=== PATIENT | female | born 1955 | race Caucasian/White ===

== ENCOUNTER 2018-10-27 11:43 | Emergency (ER) | payer OTHER ==
--- OUTSIDE RECORDS SUMMARY | 2018-10-27 11:45 | XMS REPORT | Clinical Summary ---
:1955 Author Organization [facility] Address [address] [place] [address] Care Team Providers Name Role Phone Guillaume Perez Primary Care Provider Unavailable Allergies No Known Allergies Medications No known medications Active Problems Not on file Social History Tobacco Use Types Packs/Day Years Used Date Never Smoker Sex Assigned at Date Recorded Not on file Job Start Date Occupation Industry Not on file Not on file Not on file Travel History Travel Start Travel End No recent travel history available. Last Filed Vital Signs Not on file Plan of Treatment Not on file Results Not on fileafter 10/26/2017 Insurance Payer Benefit Plan / Group Subscriber ID Type Phone Address [employer] - MEDICARE MGD [employer] GOLD CHOICE xxxxxxxxx Maps Contracted CARE PFFS
[2018-10-27] MEDS ORDERED: MECLIZINE HCL 12.5 MG TAB ONE (12:52)
[2018-10-27] MEDS ORDERED: ONDANSETRON 4 MG/2 ML VIAL ONE (12:53)
[2018-10-27 13:14] LABS: Absolute Lymphocytes (CBC) 3.4 K/uL (0.7-4.9); Basophils % 0.3 % (0-1.3); Hematocrit 45.4 % (36.0-45.0); Lymphocytes % 38.9 % (15.3-44.8); RBC Red Blood Cell Count 5.26 M/uL (3.86-4.86)
[2018-10-27 13:29] LABS: Protime INR 1.01
[2018-10-27 13:35] LABS: ALT/SGPT 25 U/L (12-78); AST/SGOT 32 U/L (15-37); Albumin 4.2 g/dL (3.4-5.0); Alkaline Phosphatase 71 U/L (45-117); BUN Blood Urea Nitrogen 17 mg/dL (7-18); Bicarbonate 27 mmol/L (21-32); Bilirubin Direct < 0.1 mg/dL (0-0.2); Bilirubin Total 0.6 mg/dL (0.2-1.0); Glucose Level 99 mg/dL (74-106); Magnesium 2.1 mg/dL (1.8-2.4); NT PRO-BNP 124 pg/mL (<125); Potassium 4.5 mmol/L (3.5-5.1); Protein, Total 8.2 g/dL (6.4-8.2); Sodium Level 139 mmol/L (136-145); Troponin (Emerg Dept Use Only) < 0.02 ng/mL (0.0-0.045)
--- NOTE | 2018-10-27 13:56 | RAD REPORT ---
EXAM DESCRIPTION: RAD - Chest Single View - 10/27/2018 1:36 pm CLINICAL HISTORY: dizziness Chest pain. COMPARISON: No comparisons FINDINGS: Portable technique limits examination quality. The lungs are grossly clear. The heart is normal in size. No displaced fractures. IMPRESSION: No acute intrathoracic process suspected.
--- NOTE | 2018-10-27 13:58 | RAD REPORT ---
EXAM DESCRIPTION: CT - Head Brain Wo Cont - 10/27/2018 1:31 pm CLINICAL HISTORY: DIZZINESS Headache, drowsiness, previous brain removal. COMPARISON: No comparisons TECHNIQUE: All CT scans are performed using dose optimization technique as appropriate and may inclu de automated exposure control or mA/KV adjustment according to patient size. FINDINGS: No intracranial hemorrhage, hydrocephalus or extra-axial fluid collection.Moderate periven tricular and deep white matter chronic microvascular ischemic changes.. Gliosis is seen in the right occipital region compatible with previous surgical intervention. The paranasal sinuses and mastoids are clear. Previous right craniotomy changes are present. IMPRESSION: No acute intracranial abnormality.
[2018-10-27 14:06] LABS: Urine Blood NEGATIVE (NEG); Urine Glucose NEGATIVE (NEG); Urine Protein NEGATIVE (NEG); Urine Specific Gravity 1.025 (1.005-1.030); Urine pH 5.5 (5.0-7.0)
[2018-10-27] MEDS ORDERED: ASPIRIN 81 MG CHEWABLE TABLET ONE (14:14)
--- NOTE | 2018-10-27 14:26 | ER ---
Nurse's Notes [facility] Name: Dai Trujillo Age: 63 yrs Sex: Female : 1955 Arrival Date: 10/27/2018 Time: 11:44 Bed 26 Private MD: Leigh Ann Parsons Diagnosis: Dizziness and giddiness;Unsteadiness on feet Presentation: 10/27 12:16 Presenting complaint: Patient states: dizziness started this morning around 0330, sv doesn't remember what time she went to bed. c/o SOB. Transition of care: patient was not received from another setting of care. Onset of symptoms was October 27, 2018. Care prior to arrival: None. 12:16 Method Of Arrival: Wheelchair sv 12:16 Acuity: STEFAN 3 sv 13:18 Risk Assessment: Do you want to hurt yourself or someone else? Patient reports no ca1 desire to harm self or others. Initial Sepsis Screen: Does the patient meet any 2 criteria? No. Patient's initial sepsis screen is negative. Does the patient have a suspected source of infection? No. Patient's initial sepsis screen is negative. Triage Assessment: 12:16 General: Appears in no apparent distress. comfortable, Behavior is cooperative. Neuro: sv Level of Consciousness is awake, alert, obeys commands, confused, Reports dizziness. Respiratory: Reports shortness of breath Respiratory effort is even, unlabored, Respiratory pattern is regular, symmetrical. Historical: - Allergies: 12:19 No Known Allergies; sv - PMHx: 12:19 Brain cancer; Alzheimers; Dementia; sv - Immunization history:: Adult Immunizations not up to date. - Social history:: Smoking status: Patient/guardian denies using tobacco. - Ebola Screening: : Patient negative for fever greater than or equal to 101.5 degrees Fahrenheit, and additional compatible Ebola Virus Disease symptoms Patient denies exposure to infectious person Patient denies travel to an Ebola-affected area in the 21 days before illness onset No symptoms or risks identified at this time. Screenin:05 Abuse screen: Denies threats or abuse. Denies injuries from another. Nutritional ca1 screening: No deficits noted. Tuberculosis screening: No symptoms or risk factors identified. Fall Risk Fall in past 12 months (25 points). Secondary diagnosis (15 points) dementia, IV access (20 points). Ambulatory Aid- Crutches/Cane/Walker (15 pts). Gait- Weak (10 pts.). Mental Status- Overestimates/Forgets Limitations (15 pts.). Total Taylor Fall Scale indicates High Risk Score (45 or more points). Fall prevention measures have been instituted. Side Rails Up X 2 Frequent Obs/Assessments Occuring Family Present and informed to notify staff if the need to leave the bedside As available patient and family educated on Fall Prevention Program and Strategies. Assessment: 13:05 General: Appears in no apparent distress. comfortable, Behavior is calm, cooperative, ca1 appropriate for age. Pain: Denies pain. Neuro: Level of Consciousness is awake, alert, obeys commands, Oriented to person, place, time, situation, Appropriate for age Sealer Operator are equal bilaterally Moves all extremities. Speech is normal. Neuro: Reports dizziness, for about 24 hours now. Cardiovascular: Heart tones S1 S2 present Capillary refill < 3 seconds Patient's skin is warm and dry. Respiratory: Airway is patent Respiratory effort is even, unlabored, Breath sounds are clear bilaterally. GI: Abdomen is flat, non-distended, Bowel sounds present X 4 quads. Abd is soft and non tender X 4 quads. : No deficits noted. No signs and/or symptoms were reported regarding the genitourinary system. EENT: No deficits noted. No signs and/or symptoms were reported regarding the EENT system. Derm: Skin is intact, is healthy with good turgor, Skin is pink, warm \T\ dry. Musculoskeletal: Circulation, motion, and sensation intact. Capillary refill < 3 seconds, Range of motion: intact in all extremities. 14:02 Reassessment: Patient appears in no apparent distress at this time. Patient and/or ca1 family updated on plan of care and expected duration. Pain level reassessed. Patient is alert, oriented x 3, equal unlabored respirations, skin warm/dry/pink. Attempted to ambulate pt. Walked 6 steps then c/o of headache and dizziness. Put back on bed. Notified provider. 15:30 Reassessment: Patient appears in no apparent distress at this time. Patient and/or ca1 family updated on plan of care and expected duration. Pain level reassessed. Patient is alert, oriented x 3, equal unlabored respirations, skin warm/dry/pink. 16:52 Reassessment: Patient appears in no apparent distress at this time. Patient and/or ca1 family updated on plan of care and expected duration. Pain level reassessed. Patient is alert, oriented x 3, equal unlabored respirations, skin warm/dry/pink. Vital Signs: 12:19 BP 136 / 80; Pulse 62; Resp 16; Temp 97.6; Pulse Ox 96% ; sv 13:05 BP 155 / 81; Pulse 63; Resp 18 S; Pulse Ox 97% on R/A; ca1 14:02 BP 140 / 71; Pulse 66; Resp 17 S; Pulse Ox 97% on R/A; ca1 15:30 BP 144 / 73; Pulse 59; Resp 14; Pulse Ox 97% on R/A; ca1 16:30 BP 125 / 74; Pulse 58; Resp 17 S; Pulse Ox 96% on R/A; ca1 NIH Stroke Scale Scores: 13:00 NIHSS Score: 0 cp ED Course: 11:44 Patient arrived in ED. am2 11:44 Leigh Ann Parsons MD is Private Physician. am2 12:19 Triage completed. sv 12:19 Arm band placed on. sv 12:22 Alicia Sorensen, IAN is Primary Nurse. ca1 12:23 Guerrero Min PA is PHCP. cp 12:23 Devendra Melton MD is Attending Physician. cp 12:27 Bed in low position. Call light in reach. Side rails up X 1. Side rails up X2. Adult w/ jp3 patient. Warm blanket given. Pillow given. Verbal reassurance given. Pulse ox on. NIBP on. 12:28 Patient maintains SpO2 saturation greater than 95% on room air. jp3 13:05 No provider procedures requiring assistance completed. Initial lab(s) drawn, by az, ca1 sent to lab. Inserted saline lock: 22 gauge in right antecubital area, using aseptic technique. Blood collected. 13:49 EKG done, by ED staff, reviewed by Guerrero KOWALSKI. jp3 14:59 initiated a transfer with Lena from the [facility] transfer granite. eb 15:53 \T\[id number] Roberto from [facility] with Guerrero Kowalski for patient transfer eb consulation/ \T\[id number] administrative approval given by Lena Jimenez RN/ patient has been accepted to [facility] ED / Dr. Roberto has accepted the patient in transfer/ report to be called to [phone]. 16:54 Patient transferred, IV remains in place. ca1 Administered Medications: 13:00 Drug: Meclizine 25 mg Route: PO; ca1 15:00 Follow up: Response: No adverse reaction; No adverse reaction. Dizziness decreased ca1 13:05 Drug: Zofran 4 mg Route: IVP; Site: right antecubital; ca1 13:38 Follow up: Response: No adverse reaction; Nausea is decreased ca1 14:14 Drug: Aspirin Chewable Tablet 324 mg Route: PO; ca1 15:00 Follow up: Response: No adverse reaction ca1 Outcome: 14:25 ER care complete, transfer ordered by MD. deng 17:19 Transferred to [facility]. hb 17:19 Condition: stable 17:19 Instructed on the need for transfer, Demonstrated understanding of instructions. 17:22 Patient left the ED. aa5 NIH Stroke Scale - NIH Stroke Score Date: 10/27/2018 Time: 13:00 Total Score = 0 1a. Level of Consciousness (LOC) - 0(Alert) 1b. Level of Consciousness (LOC) (Year \T\ Age) - 0(Both) 1c. LOC Commands (Open \T\ Closes Eyes/Crop Or Grain Farmworker) - 0(Both) 2. Best Gaze (Lateral Gaze Paresis) - 0(Normal) 3. Visual Field Loss - 0(No visual loss) 4. Facial Palsy - 0(Normal) 5a. Left Arm: Motor (10-second hold) - 0(No drift) 5b. Right Arm: Motor (10-second hold) - 0(No drift) 6a. Left Leg: Motor (5-second hold - always test supine) - 0(No drift) 6b. Right Leg: Motor (5-second hold - always test supine) - 0(No drift) 7. Limb Ataxia (finger/nose \T\ heel/garcia - test with eyes open) - 0(Absent) 8. Sensory Loss (pinprick arms/legs/face) - 0(Normal) 9. Best Language: Aphasia (description/naming/reading) - 0(No aphasia) 10. Dysarthria (speech clarity - read or repeat words) - 0(Normal) 11. Extinction and Inattention (visual/tactile/auditory/spatial/personal) - 0(No abnormality) Initials: cp Signatures: Nikky Velazquez RN RN Yulissa Jacobo RN RN aa5 Guerrero Min PA PA cp Baxter, Heather, RN RN Renée Moran am2 Lorraine Garrison Jacob jp3 Alicia Sorensen RN RN ca1 Corrections: (The following items were deleted from the chart) 17:37 17:36 Response: No adverse reaction; No adverse reaction. Dizziness decreased ca1 ca1
--- NOTE | 2018-10-27 14:26 | EDPHYS ---
Physician Documentation [facility] Name: Dai Trujillo Age: 63 yrs Sex: Female : 1955 Arrival Date: 10/27/2018 Time: 11:44 Bed 26 Private MD: Leigh Ann Parsons ED Physician Devendra Melton HPI: 10/27 12:44 This 63 yrs old Female presents to ER via Wheelchair with complaints of cp Dizziness. 12:44 The patient presents with dizziness, lightheadedness, sense of spinning. Onset: The cp symptoms/episode began/occurred this morning, at 03:30. Context: occurred at home, just prior to the episode the patient experienced no apparent symptoms. 12:45 Patient's baseline: Neuro: alert and fully oriented, Motor: no deficits, Speech: slow, cp patient reports she does occasionally use walker to ambulate. 12:45 Associated signs and symptoms: Pertinent positives: headache, Pertinent negatives: cp confusion, focal weakness, vomiting. 12:50 Patient reports history of Glioblastoma with surgery in the past. cp Historical: - Allergies: 12:19 No Known Allergies; sv - PMHx: 12:19 Brain cancer; Alzheimers; Dementia; sv - Immunization history:: Adult Immunizations not up to date. - Social history:: Smoking status: Patient/guardian denies using tobacco. - Ebola Screening: : Patient negative for fever greater than or equal to 101.5 degrees Fahrenheit, and additional compatible Ebola Virus Disease symptoms Patient denies exposure to infectious person Patient denies travel to an Ebola-affected area in the 21 days before illness onset No symptoms or risks identified at this time. ROS: 12:50 Constitutional: Negative for body aches, chills, fever, poor PO intake. cp 12:50 Eyes: Negative for injury, pain, redness, and discharge. cp 12:50 ENT: Negative for drainage from ear(s), ear pain, sinus congestion, sinus pain, sore throat, difficulty swallowing, difficulty handling secretions. 12:50 Cardiovascular: Negative for chest pain, edema, palpitations. 12:50 Respiratory: Negative for cough, shortness of breath, wheezing. 12:50 Abdomen/GI: Negative for abdominal pain, nausea, vomiting, and diarrhea, black/tarry stool, rectal bleeding. 12:50 Back: Negative for pain at rest, pain with movement. 12:50 : Negative for urinary symptoms. 12:50 Skin: Negative for cellulitis, rash. 12:50 Neuro: Positive for dizziness, headache, unsteady gait, Negative for altered mental status, syncope, weakness. 12:50 All other systems are negative. Exam: 12:55 Constitutional: The patient appears in no acute distress, alert, awake, cp non-diaphoretic, non-toxic, well developed, well nourished. 12:55 Head/Face: Normocephalic, atraumatic. cp 12:55 Eyes: Periorbital structures: appear normal, Pupils: equal, round, and reactive to light and accomodation, Extraocular movements: intact throughout, Conjunctiva: normal, no exudate, no injection, Sclera: no appreciated abnormality, Lids and lashes: appear normal, bilaterally. 12:55 ENT: External ear(s): are unremarkable, Ear canal(s): are normal, clear, TM's: bulging, is not appreciated, bilaterally, dullness, bilaterally, erythema, is not appreciated, bilaterally, Nose: is normal, Mouth: is normal, Posterior pharynx: is normal, airway is patent, no erythema, no exudate. 12:55 Neck: ROM/movement: is normal, is supple, without pain, no range of motions limitations, no meningismus, no nuchal rigidity. 12:55 Chest/axilla: Inspection: normal, Palpation: is normal, no crepitus, no tenderness. 12:55 Cardiovascular: Rate: normal, Rhythm: regular, Pulses: Pulses are 2+ in right radial cp artery and left radial artery. Edema: is not appreciated, JVD: is not appreciated. 12:55 Respiratory: the patient does not display signs of respiratory distress, Respirations: cp normal, no use of accessory muscles, no retractions, no splinting, no tachypnea, labored breathing, is not present, Breath sounds: are clear throughout, no decreased breath sounds, no stridor, no wheezing. 12:55 Abdomen/GI: Inspection: abdomen appears normal, Bowel sounds: active, all quadrants, Palpation: abdomen is soft and non-tender, in all quadrants. 12:55 Back: pain, is absent, ROM is normal. 12:55 Skin: no rash present. 12:55 Neuro: Orientation: to person, place \T\ time. Mentation: Cerebellar function: Romberg testing is negative, normal finger to nose testing, heel to garcia testing is normal, Motor: moves all fours, strength is normal, Sensation: no obvious gross deficits. 13:50 ECG was reviewed by the Attending Physician. cp Vital Signs: 12:19 BP 136 / 80; Pulse 62; Resp 16; Temp 97.6; Pulse Ox 96% ; sv 13:05 BP 155 / 81; Pulse 63; Resp 18 S; Pulse Ox 97% on R/A; ca1 14:02 BP 140 / 71; Pulse 66; Resp 17 S; Pulse Ox 97% on R/A; ca1 15:30 BP 144 / 73; Pulse 59; Resp 14; Pulse Ox 97% on R/A; ca1 16:30 BP 125 / 74; Pulse 58; Resp 17 S; Pulse Ox 96% on R/A; ca1 NIH Stroke Scale Scores: 13:00 NIHSS Score: 0 cp MDM: 12:31 Patient medically screened. cp 14:10 Data reviewed: vital signs, nurses notes, lab test result(s), EKG, radiologic studies, cp CT scan, I have discussed the patient's presentation/case with the attending Emergency Department Physician;. 14:10 Test interpretation: by ED physician or midlevel provider: ECG, plain radiologic cp studies. Response to treatment: the patient's symptoms have mildly improved after treatment. ED course: VSS. Chest xray negative for infiltrates. Patient is not a candidate for tpa as onset of symptoms were at 0330. Will transfer patient for MRI and neurology consult. 14:20 Physician consultation: DR Roberto, ER physician \T\[facility]', will accept patient as cp transfer to ED for continued evaluation and neurology consult. 10/27 12:44 Order name: Basic Metabolic Panel cp 10/27 12:44 Order name: CBC with Diff cp 10/27 12:44 Order name: LFT's cp 10/27 12:44 Order name: Magnesium cp 10/27 12:44 Order name: NT PRO-BNP cp 10/27 12:44 Order name: PT-INR cp 10/27 12:44 Order name: Troponin (emerg Dept Use Only) 10/27 13:14 Order name: CBC with Automated Diff; Complete Time: 13:57 EDMS 10/27 13:57 Interpretation: Normal except: RBC 5.26; HGB 15.6; HCT 45.4. 10/27 13:31 Order name: Protime (+INR); Complete Time: 13:57 EDMS 10/27 13:37 Order name: Basic Metabolic Panel; Complete Time: 13:57 EDMS 10/27 13:37 Order name: Liver (Hepatic) Function; Complete Time: 13:57 EDMS 10/27 13:37 Order name: Troponin (Emerg Dept Use Only); Complete Time: 13:57 EDMS 10/27 13:37 Order name: NT PRO-BNP; Complete Time: 13:57 EDMS 10/27 13:37 Order name: Magnesium; Complete Time: 13:57 EDMS 10/27 12:44 Order name: XRAY Chest (1 view) 10/27 12:44 Order name: EKG; Complete Time: 12:46 10/27 12:44 Order name: Cardiac monitoring; Complete Time: 13:09 10/27 12:44 Order name: EKG - Nurse/Tech; Complete Time: 13:38 10/27 12:44 Order name: IV Saline Lock; Complete Time: 13:09 10/27 12:44 Order name: Labs collected and sent; Complete Time: 13:09 10/27 12:44 Order name: O2 Per Protocol; Complete Time: 13:09 10/27 12:44 Order name: O2 Sat Monitoring; Complete Time: 13:09 10/27 12:44 Order name: CT Head Brain wo Cont 10/27 13:40 Order name: Urine Dipstick--Ancillary (enter results) 10/27 13:58 Order name: RAD; Complete Time: 13:58 EDMS 10/27 14:00 Order name: CT; Complete Time: 14:05 EDMS 10/27 14:05 Interpretation: Report reviewed. 10/27 14:07 Order name: Urine Dipstick-Ancillary EDMS EC:50 Rate is 57 beats/min. Rhythm is regular. IL interval is normal. QRS interval is normal. cp QT interval is normal. T waves are Inverted in leads aVL, V3, V4. Interpreted by me. Reviewed by me. Administered Medications: 13:00 Drug: Meclizine 25 mg Route: PO; ca1 15:00 Follow up: Response: No adverse reaction; No adverse reaction. Dizziness decreased ca1 13:05 Drug: Zofran 4 mg Route: IVP; Site: right antecubital; ca1 13:38 Follow up: Response: No adverse reaction; Nausea is decreased ca1 14:14 Drug: Aspirin Chewable Tablet 324 mg Route: PO; ca1 15:00 Follow up: Response: No adverse reaction ca1 Disposition: 10/28 08:58 Co-signature as Attending Physician, Devendra Melton MD I agree with the assessment and kdr plan of care. Disposition: 10/27/18 14:25 Transfer ordered to [facility]. Diagnosis are Dizziness and giddiness, Unsteadiness on feet. - Reason for transfer: Higher level of care. - Accepting physician is DR Roberto. - Condition is Stable. - Problem is new. - Symptoms are unchanged. NIH Stroke Scale - NIH Stroke Score Date: 10/27/2018 Time: 13:00 Total Score = 0 1a. Level of Consciousness (LOC) - 0(Alert) 1b. Level of Consciousness (LOC) (Year \T\ Age) - 0(Both) 1c. LOC Commands (Open \T\ Closes Eyes/Tractor Engine Mechanic) - 0(Both) 2. Best Gaze (Lateral Gaze Paresis) - 0(Normal) 3. Visual Field Loss - 0(No visual loss) 4. Facial Palsy - 0(Normal) 5a. Left Arm: Motor (10-second hold) - 0(No drift) 5b. Right Arm: Motor (10-second hold) - 0(No drift) 6a. Left Leg: Motor (5-second hold - always test supine) - 0(No drift) 6b. Right Leg: Motor (5-second hold - always test supine) - 0(No drift) 7. Limb Ataxia (finger/nose \T\ heel/garcia - test with eyes open) - 0(Absent) 8. Sensory Loss (pinprick arms/legs/face) - 0(Normal) 9. Best Language: Aphasia (description/naming/reading) - 0(No aphasia) 10. Dysarthria (speech clarity - read or repeat words) - 0(Normal) 11. Extinction and Inattention (visual/tactile/auditory/spatial/personal) - 0(No abnormality) Initials: cp Signatures: Dispatcher MedHo Nikky Kerns RN RN sv Rittger, Kevin MD MD kdr Rivera, Yulissa, RN RN aa5 Guerrero Min, PA PA cp Edu, Alicia RN RN ca1 Corrections: (The following items were deleted from the chart) 10/27 16:25 14:25 10/27/2018 14:25 Transfer ordered to [facility]. cp Diagnosis is Dizziness and giddiness; Unsteadiness on feet. Reason for transfer: Higher level of care. Accepting physician is Doctor. Condition is Stable. Problem is new. Symptoms are unchanged. cp 17:22 16:25 10/27/2018 14:25 Transfer ordered to [facility]. aa5 Diagnosis is Dizziness and giddiness; Unsteadiness on feet. Reason for transfer: Higher level of care. Accepting physician is DR Roberto. Condition is Stable. Problem is new. Symptoms are unchanged. cp
[2018-10-27 18:13] VITALS: TEMP 97.6
[2018-10-27 18:16] VITALS: BP 125/74; O2SAT 96
--- NOTE | 2018-10-28 11:35 | EKG ---
Test Date: 2018-10-27 Test Time: 13:45:29 Body Technician: ILYA MEASUREMENT RESULTS: Intervals: Rate: 57 ID: [id number] QRSD: 86 QT: 456 QTc: 443 [place]: P: 60 ID: [id number] QRS: 38 T: 77 INTERPRETIVE STATEMENTS: Sinus bradycardia Nonspecific T wave abnormality Abnormal ECG No previous ECG available for comparison Electronically Signed On 10-28-18 11:31:22 CDT by Krishna Villela
== END 2018-10-27 17:22 | disposition short-term general hospital (02) ==
LOC: ER 11:43
DX: R42 Dizziness and giddiness (principal); R26.81 Unsteadiness on feet; G30.9 Alzheimer's disease, unspecified; F02.80 Dementia in other diseases classified elsewhere, unspecified severity, without behavioral disturbance, psychotic disturbance, mood disturbance, and anxiety; Z85.841 Personal history of malignant neoplasm of brain
CPT/HCPCS: 93005; 85025; 80048; 36415; 83735; 85610; 80076; 81003; 84484; 83880; 70450; 71045; 96374; 99285; J2405

== ENCOUNTER 2020-07-08 16:49 | Emergency (ER) | payer OTHER ==
--- OUTSIDE RECORDS SUMMARY | 2020-07-08 16:51 | XMS REPORT | Continuity of Care Document ---
:1955 Author Organization [facility] t Address [address] [place] [address] Care Team Providers Name Role Phone Luis Antonio Perez Primary Care Physician Bon Grayson Attending Clinician Emre REVELES, K.H. 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 00:00: Medi carlotta lobe lobe 00 Center Dementia Dementia Disease [facility] DYSPHAGIA; Diagnosis Active 2010-022011-01-19 Memoria DIARRHEA; 03-16 09:32:00 l NAUSEA; 00:00: Reza VOMITING; DYSPHAGIA; 00 RECTAL DIARRHEA; BLEEDING NAUSEA; VOMITING; RECTAL BLEEDING Active 01/13/2011 [facility] Malignant Problem Resolve 2020-06-18 M emoria neoplasm d 01:54:44 l of brain Reza (disorder) Malignant neoplasm of brain (disorder) Resolved Problem 06/18/2020 [facility] Dyskinesia Problem Active 2020-06-18 M emoria (finding) 01:54:44 l [place] Dyskinesia (finding) Active Problem 06/18/2020 [facility] 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 Russell n (disorder) Glioblasto ma multiforme (disorder) Active Problem 06/18/2020 [facility] History of Problem Active 2020-06-18 M emoria craniotomy 01:54:44 l (situation History Her mcclain ) of craniotomy (situation ) Active Problem 06/18/2020 [facility] Hyperlipid Problem Active 2020-06-18 M emoria emia 01:54:44 l (disorder) Russell n Hyperlipid emia (disorder) Active Problem 06/18/2020 [facility] Hypertensi Problem Active 2020-06-18 emoria ve 01:54:44 l disorder, [place] systemic Hypertensi arterial ve (disorder) disorder, systemic arterial (disorder) Active Problem 06/18/2020 [facility] Allergies, Adverse Reactions, Alerts Allergy Allergy Status Severity Reaction(s) Onset Inactive Treating Comm ents Source Name Type Date Date Clinician codeine codeine Active Memoria sulfate sulfate l [place] Social History Social Habit Start Date Stop Date Quantity Comments Source Sex Assigned At [facility] Social History 2020-06-10 2020-06-10 Gaby jones 20:42:43 20:42:43 Smoking Status Start Date Stop Date Source Never smoker [facility] Medications Ordered Filled Start Stop Current Ordering Indication Dosage Frequency Signature Comments Components Source Medication Medication Date Date Medication? Clinician (SIG) Name Name memantine Yes 14 mg, PO, Me moria 14 mg oral 4-29 Daily, # l capsule, 23:15: 30 cap, 2 Herm darin extended 00 Refill(s), release [id number], 167.64, cm, 06/10/20 14:53:00 CDT, Height, 75, kg, 06/10/20 14:53:00 CDT, Weight Memantine 2021-0 No 14 mg, PO, Me moria - Daily, 0 l 20:02: Refill(s) Amlodipine Yes 5 mg, PO, Me moria - Daily, 0 l 20:01: Refill(s) meloxicam Yes 7.5 mg, Memor ia - PO, Daily, l 20:01: 0 Refill(s) latanoprost Yes QPM, 0 Satnam yony 06-10 Refill(s) l 20:00: Simvastatin Yes 40 mg, PO, Memoria 06-10 Daily, 0 l 19:58: Refill(s) Citalopram Yes 20 mg, PO, M emoria 06-10 Daily, 0 l 19:57: Refill(s) amLODIPine Yes 5mg QD Take [address] (NORVASC) 5 9-16 by mouth Luke s - MG tablet 17:55: daily. [address] simvastatin 0 Yes 40mg QD Take [address] (ZOCOR) 40 9-16 by mouth [facility] - MG tablet 17:55: nightly. [address] meloxicam Yes 7.5mg Take 7.[address] (MOBIC) 7.5 9-16 mg by [facility] - MG tablet 17:55: mouth 2 Medic al 52 (two) Center times daily as needed for Pain. pantoprazol Yes 40mg QD Take [address] [facility] 9-16 by mouth [facility] - (PROTONIX) 17:55: daily. Medic al 40 MG [address] [place] tablet donepezil Yes 5mg QD Take [address] (ARICEPT) 5 9-16 by mouth Luke s - MG tablet 17:55: nightly. [address] aspirin 81 0 Yes 81mg QD Take [address] [facility] EC 9-16 by mouth [facility] - tablet 17:55: daily. [address] citalopram Yes 20mg QD Take [address] (CELEXA) 20 9-16 by mouth Luke s - MG tablet 17:55: daily. Medica l 52 Center Vital Signs Vital Name Observation Time Observation Value Comments Source Systolic (mm Hg) 2020-06-10 19:53:00 Satnam rial [place] Diastolic (mm Hg) 2020-06-10 19:53:00 Mem orial Reza Heart Rate 2020-06-10 19:53:00 [facility] [place] Respitory Rate 2020-06-10 19:53:00 Memori al [place] Height 2020-06-10 19:53:00 167.64 cm [facility] Weight 2020-06-10 19:53:00 [facility] [place] BMI Calculated 2020-06-10 19:53:00 Memori al [place] Height 2011-01-19 16:42:00 170.18 cm [facility] [place] Weight 2011-01-19 16:42:00 [facility] Procedures Procedure Date / Time Performed Performing Clinician Sourc e Cholecystectomy [facility] Plan of Care Planned Activity Planned Date Details Comments Source Future Scheduled 2019-10-14 INFLUENZA VACCINE (#1) [facility]00 [code = INFLUENZA Medical Ce nter VACCINE (#1)] Future Scheduled 2019 PNEUMOCOCCAL 65+ YRS [facility] - Test 00:00:00 (1 of 1 - Medical Center [id number] PCV13) [code = PNEUMOCOCCAL 65+ YRS (1 of 1 - [id number] PCV13)] Future Scheduled 2016-02-[address] [facility] - Test 00:00:00 WELLNESS (YEAR 2 or Medical Center FIRST YEAR if no IPPE) [code = MEDICARE ANNUAL WELLNESS (YEAR 2 or FIRST YEAR if no IPPE)] Future Scheduled [address] [facility] - Test 00:00:00 (procedure) [code = Medical Center 97670428] Future Scheduled [address] [facility] - [facility] 00:00:00 [facility]procedure) [code = 878090048] Future Scheduled [address] [facility] - Test 00:00:00 [facility] breast (procedure) [code = 451385605] Future Scheduled [address] [facility] [facility] - Test 00:00:00 [facility] colon (procedure) [code = 759694031] Encounters Start End Encounter Admission Attending Care Care Encounter Source Date/Time Date/Time Type Type Clinicians Facility Department ID 2020-06-15 2020-06-15 Outpatient JERONIMO Grayson [id number] 10:00:00 23:59:59 Mauro 01 Bon 2020-06-10 2020-06-10 Outpatient JERONIMO Grayson [id number] 14:15:00 23:59:59 Mauro 00 Bon 2019-08-29 2019-10-13 Office Emre [facility] [id number] 13:39:36 09:08:33 Visit Marisabel Cornejo [id number] [place] [id number] Professio [phone] nal 059 [facility] 2019-10-13 2019-10-13 Telephone Emre [facility] [id number] 00:00:00 00:00:00 Marisabel Cornejo [id number] [place]ork [id number] Professio [phone] [facility]9 [facility] Results Test Description Test Time Test Comments Results Result Comments Source B-TYPE NATRIURETIC FACTOR (BNP) 2018-10-27 20:28:00 Test Item Value Reference Range Interpretation Comme nts B-TYPE NATRIURETIC PEPTIDE (ROBINSON) (test code = 700) 35 pg/mL 0-100 TROPONIN [id number] 20:28:00 Test Item Value Reference Range Interpretation Comments TROPONIN I (ROBINSON) (test code = 397) < ng/mL 0.00-0.03 Troponin I (TnI) levels must be interpreted in the context of the presenting symptoms and the clinical findings. Elevated TnI levels indicate myocardial damage, but are not specific for ischemic heart disease. Elevated TnI levels are seen in patients with other cardiac conditions (including myocarditis and congestive heart failure), and slight TnI elevations occur in patients with other conditions, including sepsis, renal failure, acidosis, acute neurological disease, and persistent tachyarrhythmia.[id number] 20:26:00 Test Item Value Reference Range Interpretation Comments D-DIMER QUANTITATIVE (ROBINSON) 0.29 MG/L FEU <0.50 (test code = 671) Intended Use: The D-Dimer Assay can be used to aid in the diagnosis of Deep Vein Thrombosis (DVT) and Pulmonary Embolism Disease (PED).In patients with low pre- test probability, various studies concerning STA Liatest D-dimer test have reported that with a cutoff value of 0.50 MG/L FEU, the Negative Predictive Value (NPV) regarding the exclusion of thrombosis is within 95-100% range.RAD, CHEST, 1 VIEW, NON [id number] 20:22:00Reason for exam:->SOBShould this be performed at the bedside?->YesFINAL REPORT INDICATION: SOB COMPARISON: None TECHNIQUE: Single frontal view of the chest. FINDINGS: Lungs and pleura: Mild bibasilar subsegmental atelectasis. No airspace consoli dation. No effusion.Heart and mediastinum: Normal heart size. Unremarkable mediastinal contours.Osseous structures: No acute abnormality.Other: None. IMPRESSION: No active intrathoracic abnormality. Signed: Mo Pollard MDReport Verified Date/Time: 10/27/2018 20:22:18 Reading Location: [address] Neuro Reading Room BASI METABOLIC [id number] 20:20:00 Test Item Value Reference Range Interpretation Comments SODIUM (BEAKER) 138 meq/L 136-145 (test code = 381) POTASSIUM (BEAKER) 3.8 meq/L 3.5-5.1 (test code = 379) CHLORIDE (BEAKER) 103 meq/L 98-107 (test code = 382) CO2 (BEAKER) (test 26 meq/L 22-29 code = 355) BLOOD UREA NITROGEN 14 mg/dL 7-21 (BEAKER) (test code = 354) CREATININE (BEAKER) 0.97 mg/dL 0.57-1.25 (test code = 358) GLUCOSE RANDOM 100 mg/dL 70-105 (BEAKER) (test code = 652) CALCIUM (BEAKER) 9.3 mg/dL 8.4-10.2 (test code = 697) EGFR (BEAKER) (test 58 mL/min/1.73 ESTIMA CAMILLE GFR IS code = 1092) sq m NOT ACCURATE CREATININE CLEARANCE IN PREDICTING GLOMERULAR FILTRATION RATE . ESTIMATED GFR I S NOT APPLICABLE FOR DIALYSIS PATIEN TS. CBC W/PLT COUNT & AUTO [id number] 20:08:00 Test Item Value Reference Range Interpretation Comments WHITE BLOOD CELL COUNT (BEAKER) 7.5 K/ L 3.5-10.5 (test code = 775) RED BLOOD CELL COUNT (BEAKER) 5.03 M/ L 3.93-5.22 (test code = 761) HEMOGLOBIN (BEAKER) (test code = 15.0 GM/DL 11.2-15.7 410) HEMATOCRIT (BEAKER) (test code = 43.5 % 34.1-44.9 411) MEAN CORPUSCULAR VOLUME (BEAKER) 86.5 fL 79.4-94.8 (test code = 753) MEAN CORPUSCULAR HEMOGLOBIN 29.8 pg 25.6-32.2 (BEAKER) (test code = 751) MEAN CORPUSCULAR HEMOGLOBIN CONC 34.5 GM/DL 32.2-35.5 (BEAKER) (test code = 752) RED CELL DISTRIBUTION WIDTH 12.7 % 11.7-14.4 (BEAKER) (test code = 412) PLATELET COUNT (BEAKER) (test 176 K/CU MM 150-450 code = 756) MEAN PLATELET VOLUME (BEAKER) 9.5 fL 9.4-12.3 (test code = 754) NUCLEATED RED BLOOD CELLS 0 /100 WBC 0-0 (BEAKER) (test code = 413) NEUTROPHILS RELATIVE PERCENT 46 % (BEAKER) (test code = 429) LYMPHOCYTES RELATIVE PERCENT 41 % (BEAKER) (test code = 430) MONOCYTES RELATIVE PERCENT 12 % (BEAKER) (test code = 431) EOSINOPHILS RELATIVE PERCENT 1 % (BEAKER) (test code = 432) BASOPHILS RELATIVE PERCENT 0 % (BEAKER) (test code = 437) NEUTROPHILS ABSOLUTE COUNT 3.44 K/ L 1.56-6.13 (BEAKER) (test code = 670) LYMPHOCYTES ABSOLUTE COUNT 3.08 K/ L 1.18-3.74 (BEAKER) (test code = 414) MONOCYTES ABSOLUTE COUNT (BEAKER) 0.86 K/ L 0.24-0.36 H (test code = 415) EOSINOPHILS ABSOLUTE COUNT 0.08 K/ L 0.04-0.36 (BEAKER) (test code = 416) BASOPHILS ABSOLUTE COUNT (BEAKER) 0.01 K/ L 0.01-0.08 (test code = 417) IMMATURE GRANULOCYTES-RELATIVE 0 % 0-1 PERCENT (BEAKER) (test code = 2801) CT, BRAIN, WITHOUT [id number] 20:08:00Reason for exam:->h/o glioWhat is the patient's sedation requirement?->No SedationFINAL REPORT CT Head without contrast CLINICAL HISTORY: Dizziness, persistent/ recurrent, cardiac or vascular cause suspectedh/o glio TECHNIQUE: Contiguous axial images through the head without contrast. This exam was performed according to the departmental dose optimization program which includes automated exposure control, adjustment of the mA and/or kV according to the patient size, and/or use of an iterative reconstruction technique. COMPARISON: CT head dated 06/18/2015. FINDINGS: Postsurgical changes of a prior right-sided craniotomy with underlying encephalomalacia of the right occipital parietal lobes. Nonspecific calcification in the left occipital lobe slightly more conspicuous in the interval. Unchanged confluent white matter lucency extending from the surgical cavity into the bilateral periventricular white matter. No evidence of acute large territory infarction however white matter lucency limits evaluation as described above. No large intracranial hemorrhage. Nomidline shift or significant mass effect. Few discrete areas of periventricular and subcortical white matter hypodensity which is nonspecific but compatible with chronic microvascular ischemic change. There are atherosclerotic calcifications of the intracranial circulation. There is generalized parenchymal volume loss without hydrocephalus, midline shift, or apparent mass effect. Basilar cisterns are patent. There are no extra-axial fluid collections. The skull is intact. Mottled appearance of the calvarium, particularly posteriorly similar to prior may be related to posttreatment changes. The visualized paranasal sinuses are well- aerated. Intraorbital contents are unremarkable. IMPRESSION: No CT evidence of acute intracranial abnormality. Postsurgical changes of a prior right-sided craniotomy. Unchanged encephalomalacia/postsurgical changes of the right occipital parietal lobes with confluent white matter lucency extending from the surgical cavity into the bilateral periventricular white matter. MRI could be helpful for further evaluation as clinically indicated. Signed: [facility] Verified Date/Time: 10/27/2018 20:08:37
[2020-07-08] MEDS ORDERED: TRAMADOL HCL 50 MG TAB ONE (19:02)
--- NOTE | 2020-07-08 19:10 | RAD REPORT ---
EXAM DESCRIPTION: CT - Thoracic Spine W/o Cont - 07/08/2020 6:54 pm CLINICAL HISTORY: Fall, midthoracic pain COMPARISON: None. TECHNIQUE: Axial 3 mm thick images of the thoracic spine were obtained with sagittal and coronal rec onstruction images generated and reviewed. All CT scans are performed using dose optimization technique as appropriate and may include automated exposure control or mA/KV adjustment according to patient size. FINDINGS: Thoracic body height and alignment are normal. No significant disc space narrowing. Endpla te spurring changes are present in the mid and lower thoracic spine. No fracture or acute bony abnorm ality. No paraspinal mass or hematoma. Central canal detail is inherently limited on CT imaging. IMPRESSION: Degenerative change in the thoracic spine present. No compression fracture or acute find ing.
--- NOTE | 2020-07-08 19:12 | RAD REPORT ---
EXAM DESCRIPTION: CT - Spine Lumbar Wo Con - 07/08/2020 6:54 pm CLINICAL HISTORY: LOWER BACK PAIN COMPARISON: None. TECHNIQUE: Thin section axial imaging of the lumbar spine was performed. Sagittal and coronal recon struction images were generated and reviewed. All CT scans are performed using dose optimization technique as appropriate and may include automated exposure control or mA/KV adjustment according to patient size. FINDINGS: Lumbar bodies are normal in height. No fracture or acute vertebral body finding identifiab le. No paraspinal mass or hematoma seen. Central canal detail is inherently limited. No gross evidenc e for large disc herniation. Facet joint degenerative changes are present in the lumbar spine. Disc b ulge seen at multiple levels. Canal is borderline stenotic at L4-5. Numerous rounded low-density masses are present around the left renal pelvis most likely a cluster of parapelvic cysts. IMPRESSION: Prominent facet joint degenerative change in the lumbar spine most pronounced at L4-5. No compression fracture or acute finding identifiable.
--- NOTE | 2020-07-08 19:45 | ER ---
Nurse's Notes [facility] Name: Dai Trujillo Age: 65 yrs Sex: Female : 1955 Arrival Date: 07/08/2020 Time: 16:53 Bed 6 Private MD: Diagnosis: Fall;Back Contusion;Facial Contusion Presentation: 07/08 16:55 Chief complaint: Patient's son or daughter states: She said she lost her balance and ca1 fell 2 - 3 days ago, was seen by a doctor in [facility]. Yesterday, I visited and she is c/o back pain, middle back. Also has a bruise on L eye, R hand from the fall. Denies LOC. Coronavirus screen: Client denies travel out of the [place] in the last 14 days. At this time, the client does not indicate any symptoms associated with coronavirus-19. Ebola Screen: Patient negative for fever greater than or equal to 101.5 degrees Fahrenheit, and additional compatible Ebola Virus Disease symptoms Patient denies exposure to infectious person. Patient denies travel to an Ebola-affected area in the 21 days before illness onset. No symptoms or risks identified at this time. Initial Sepsis Screen: Does the patient meet any 2 criteria? No. Patient's initial sepsis screen is negative. Does the patient have a suspected source of infection? No. Patient's initial sepsis screen is negative. Risk Assessment: Do you want to hurt yourself or someone else? Patient reports no desire to harm self or others. Onset of symptoms was July 08, 2020. 16:55 Method Of Arrival: Wheelchair ca1 16:55 Acuity: STEFAN 4 ca1 Historical: - Allergies: 17:03 No Known Allergies; ca1 - PMHx: 17:03 Alzheimers; Dementia; brain cancer; Arthritis; ca1 - PSHx: 17:03 brain surgery; ca1 - Immunization history:: Client reports having NOT received the Covid vaccine. Pneumococcal vaccine status is unknown, Flu vaccine status is unknown. - Social history:: Smoking status: Patient denies any tobacco usage or history of. Screenin:31 Abuse screen: Denies threats or abuse. Nutritional screening: No deficits noted. em Tuberculosis screening: No symptoms or risk factors identified. Fall Risk None identified. Assessment: 17:41 General: Appears in no apparent distress. comfortable, Behavior is calm, cooperative, em appropriate for age. Pain: Complains of pain in back Pain currently is 10 out of 10 on a pain scale. Neuro: Level of Consciousness is awake, alert, obeys commands, Oriented to person, place, time, situation. Cardiovascular: Capillary refill < 3 seconds Patient's skin is warm and dry. Respiratory: Airway is patent Respiratory effort is even, unlabored, Respiratory pattern is regular, symmetrical. Derm: Skin is intact, is fragile, is thin, Skin is pink, warm \T\ dry. Bruising that is yellow, on left eye and right hand. Musculoskeletal: Range of motion: intact in all extremities. 18:23 Reassessment: Dr. Melton at bedside. em 18:44 Reassessment: Patient appears in no apparent distress at this time. Patient and/or hb family updated on plan of care and expected duration. Pain level reassessed. Patient is alert, oriented x 3, equal unlabored respirations, skin warm/dry/pink. 19:15 Reassessment: Patient appears in no apparent distress at this time. Patient and/or jb4 family updated on plan of care and expected duration. Pain level reassessed. Patient is alert, oriented x 3, equal unlabored respirations, skin warm/dry/pink. Vital Signs: 16:55 BP 130 / 70; Pulse 78; Resp 16 S; Temp 97.3(TE); Pulse Ox 98% on R/A; Weight 72.57 kg ca1 (R); Height 5 ft. 6 in. (167.64 cm) (R); Pain 10/10; 19:15 BP 139 / 80; Pulse 59; Resp 16; Pulse Ox 97% on R/A; jb4 16:55 Body Mass Index 25.82 (72.57 kg, 167.64 cm) ca1 ED Course: 16:53 Patient arrived in ED. ds1 16:59 Triage completed. ca1 17:03 Arm band placed on right wrist. ca1 17:18 Devendra Melton MD is Attending Physician. kdr 17:31 Luis A Sawant, IAN is Primary Nurse. em 17:31 Patient has correct armband on for positive identification. Bed in low position. Call em light in reach. Pulse ox on. NIBP on. 18:55 CT Thoracic Spine Wo Cont In Process Unspecified. EDMS 18:55 CT Lumbar Spine Wo Con In Process Unspecified. EDMS 19:01 Attending Physician role handed off by Devendra Melton MD [facility] 19:01 Bharathi Carlos MD is Attending Physician. [facility] 19:53 No provider procedures requiring assistance completed. Patient did not have IV access jb4 during this emergency room visit. Administered Medications: 18:44 Drug: traMADol 50 mg Route: PO; hb 19:15 Follow up: Response: No adverse reaction; Marked relief of symptoms; Pain is decreased; jb4 RASS: Alert and Calm (0) Outcome: 19:44 Discharge ordered by . [facility] 19:53 Discharged to home via wheelchair, with family. jb4 19:53 Condition: stable 19:53 Discharge instructions given to patient, Instructed on discharge instructions, follow up and referral plans. medication usage, Demonstrated understanding of instructions, follow-up care, medications, Prescriptions given X 1. 19:55 Patient left the ED. jb4 Signatures: Dispatcher [employer] [facility] Devendra Melton MD MD [facility] Luis A Sawant, RN RN Cristin Smart ds1 Melba Wilson RN RN Ulysses Cervantes RN RN jb4 Alicia Sorensen RN RN [facility] Bharathi Carlos MD MD [facility]
--- NOTE | 2020-07-08 19:45 | EDPHYS ---
Physician Documentation [facility] Name: Dai Trujillo Age: 65 yrs Sex: Female : 1955 Arrival Date: 07/08/2020 Time: 16:53 Bed 6 Private MD: COCO Physician Bharathi Carlos HPI: 07/08 18:32 This 65 yrs old Female presents to ER via Wheelchair with complaints of Back kdr Pain. 18:32 The patient presents with pain that is acute, and decreased range of motion. The kdr symptoms are located in the low back, thoracic spine and lumbar spine. Onset: The symptoms/episode began/occurred suddenly, Sunday. The pain does not radiate. Associated signs and symptoms: Pertinent positives: none Pertinent negatives: abdominal pain, chest pain, headache, hematuria, incontinence, nausea, numbness, tingling, urinary retention, vomiting, weakness. The problem was sustained during a fall, while standing. Modifying factors: The patient symptoms are alleviated by remaining still, the patient symptoms are aggravated by any movement, movement. Severity of symptoms: At their worst the symptoms were mild, moderate, just prior to arrival, in the emergency department the symptoms are unchanged. The patient has not experienced similar symptoms in the past. The patient has been recently seen by a physician: Was seen by MD at [facility] on Sunday. The patient reportedly fell on Sunday and was noted on Sunday/Sunday to have ecchymosis around the left eye. She continues to have T/L spine pain in addition to the resolving ecchymosis on the left cheek. She is very fidgety but her son states that this is normal.. Historical: - Allergies: 17:03 No Known Allergies; ca1 - PMHx: 17:03 Alzheimers; Dementia; brain cancer; Arthritis; ca1 - PSHx: 17:03 brain surgery; ca1 - Immunization history:: Client reports having NOT received the Covid vaccine. Pneumococcal vaccine status is unknown, Flu vaccine status is unknown. - Social history:: Smoking status: Patient denies any tobacco usage or history of. ROS: 18:32 Constitutional: Negative for fever, chills, and weight loss, Eyes: Negative for injury, kdr pain, redness, and discharge, ENT: Negative for injury, pain, and discharge, Neck: Negative for injury, pain, and swelling, Cardiovascular: Negative for chest pain, palpitations, and edema, Respiratory: Negative for shortness of breath, cough, wheezing, and pleuritic chest pain, Abdomen/GI: Negative for abdominal pain, nausea, vomiting, diarrhea, and constipation, : Negative for injury, bleeding, discharge, and swelling, MS/Extremity: Negative for injury and deformity, Skin: Negative for injury, rash, and discoloration, Neuro: Negative for headache, weakness, numbness, tingling, and seizure activity. Psych: Negative for depression, anxiety, suicide ideation, homicidal ideation, and hallucinations, Allergy/Immunology: Negative for hives, rash, and allergies, Endocrine: Negative for neck swelling, polydipsia, polyuria, polyphagia, and marked weight changes, Hematologic/Lymphatic: Negative for swollen nodes, abnormal bleeding, and unusual bruising. 18:32 Back: Positive for injury or acute deformity, pain at rest, pain with movement, of the thoracic area and lumbar area. Exam: 18:32 Constitutional: This is a well developed, well nourished patient who is awake, alert, kdr and in no acute distress. Head/Face: Normocephalic, atraumatic. Eyes: Pupils equal round and reactive to light, extra-ocular motions intact. Lids and lashes normal. Conjunctiva and sclera are non-icteric and not injected. Cornea within normal limits. Periorbital areas with no swelling, redness, or edema. Neck: Trachea midline, no thyromegaly or masses palpated, and no cervical lymphadenopathy. Supple, full range of motion without nuchal rigidity, or vertebral point tenderness. No Meningismus. Chest/axilla: Normal chest wall appearance and motion. Nontender with no deformity. No lesions are appreciated. Cardiovascular: Regular rate and rhythm with a normal S1 and S2. No gallops, murmurs, or rubs. Normal PMI, no JVD. No pulse deficits. Respiratory: Lungs have equal breath sounds bilaterally, clear to auscultation and percussion. No rales, rhonchi or wheezes noted. No increased work of breathing, no retractions or nasal flaring. Abdomen/GI: Soft, non-tender, with normal bowel sounds. No distension or tympany. No guarding or rebound. No evidence of tenderness throughout. Skin: Warm, dry with normal turgor. Normal color with no rashes, no lesions, and no evidence of cellulitis. MS/ Extremity: Pulses equal, no cyanosis. Neurovascular intact. Full, normal range of motion. Neuro: Awake and alert, GCS 15, oriented to person, place, time, and situation. Cranial nerves II-XII grossly intact. Motor strength 5/5 in all extremities. Sensory grossly intact. Cerebellar exam normal. Normal gait. Psych: Awake, alert, with orientation to person, place and time. Behavior, mood, and affect are within normal limits. 18:32 Back: pain, that is mild, of the thoracic area and lumbar area, ROM is painful, scoliosis CVA tenderness, is absent, vertebral tenderness, is appreciated at T7, T8, T9, T10, T11, T12 and L1. Vital Signs: 16:55 BP 130 / 70; Pulse 78; Resp 16 S; Temp 97.3(TE); Pulse Ox 98% on R/A; Weight 72.57 kg ca1 (R); Height 5 ft. 6 in. (167.64 cm) (R); Pain 10/10; 19:15 BP 139 / 80; Pulse 59; Resp 16; Pulse Ox 97% on R/A; jb4 16:55 Body Mass Index 25.82 (72.57 kg, 167.64 cm) ca1 MDM: 18:32 Differential diagnosis: chronic back pain, Fracture Joint Injury Ligament Injury kdr Osteoporosis Scoliosis. Data reviewed: vital signs, nurses notes, lab test result(s), radiologic studies. Counseling: I had a detailed discussion with the patient and/or guardian regarding: the historical points, exam findings, and any diagnostic results supporting the discharge/admit diagnosis, lab results, radiology results. 19:41 Response to treatment: the patient's symptoms have markedly improved after treatment. mh7 19:44 Patient medically screened. mh7 19:47 ED course: Patient was signed out to me at change of shift to check pending [facility] of [facility] thoracic and lumbar pine. Patient is awake, alert, and oriented to baseline, NAD, VSS, no focal neurological deficits. Discussed findings with patient and her son and gave opportunity to ask questions. She is feeling better after receiving Tramadol and requests prescription. Looked up narcotic prescription history on [facility] website which reports last prescription filled 11/06/2018 for Tylenol with Codeine.. 07/08 18:32 Order name: CT Thoracic Spine Wo Cont; Complete Time: 19:32 kdr 07/08 18:32 Order name: CT Lumbar Spine Wo Con; Complete Time: 19:32 kdr Administered Medications: 18:44 Drug: traMADol 50 mg Route: PO; hb 19:15 Follow up: Response: No adverse reaction; Marked relief of symptoms; Pain is decreased; jb4 RASS: Alert and Calm (0) Disposition: 07/08/20 19:44 Discharged to Home. Impression: Fall, Back Contusion, Facial Contusion. - Condition is Stable. - Discharge Instructions: Contusion, Zqtc-zd-Jtje, Back Pain, Adult, Hwla-ii-Puec, Fall Prevention in the Home, Zprf-nd-Uinc, Facial or Scalp Contusion, Epcn-rv-Noxa. - Prescriptions for Tramadol 50 mg Oral Tablet - take 1 tablet by ORAL route every 8 hours as needed; 12 tablet. - Medication Reconciliation Form, Thank You Letter, Antibiotic Education, Prescription Opioid Use form. - Follow up: Private Physician; When: 1 - 2 days; Reason: Worsening of condition, Recheck today's complaints, Continuance of care, Re-evaluation by your physician. - Problem is new. - Symptoms have improved. Signatures: Dispatcher [employer] EDMS Devendra Melton MD MD [facility] Melba Wilson RN RN Ulysses Cervantes RN RN jb4 Alicia Sorensen RN RN [facility] Bharathi Carlos MD MD mh7 Corrections: (The following items were deleted from the chart) 19:55 19:44 07/08/2020 19:44 Discharged to Home. Impression: Fall; Back Contusion; Facial jb4 Contusion. Condition is Stable. Forms are Medication Reconciliation Form, Thank You Letter, Antibiotic Education, Prescription Opioid Use. Follow up: Private Physician; When: 1 - 2 days; Reason: Worsening of condition, Recheck today's complaints, Continuance of care, Re-evaluation by your physician. Problem is new. Symptoms have improved. mh7
[2020-07-08 20:04] VITALS: TEMP 97.3
[2020-07-08 20:05] VITALS: BP 139/80; O2SAT 97
== END 2020-07-08 19:55 | disposition home or self-care (01) ==
LOC: ER 16:49
DX: S00.12XA Contusion of left eyelid and periocular area, initial encounter (principal); W19.XXXA Unspecified fall, initial encounter; Y92.099 Unspecified place in other non-institutional residence as the place of occurrence of the external cause; G30.9 Alzheimer's disease, unspecified; F02.80 Dementia in other diseases classified elsewhere, unspecified severity, without behavioral disturbance, psychotic disturbance, mood disturbance, and anxiety; Z85.841 Personal history of malignant neoplasm of brain
CPT/HCPCS: 72128; 72131; 99284

== ENCOUNTER 2020-08-28 09:28 | Inpatient (IN) | payer OTHER ==
--- OUTSIDE RECORDS SUMMARY | 2020-08-28 09:31 | XMS REPORT | Continuity of Care Document ---
:1955 Author Organization [facility] t Address 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 [facility] History of Problem Active 2020-07-24 M emoria craniotomy 21:36:53 l (situation History Her mcclain ) of craniotomy (situation ) Active Problem 07/24/2020 [facility] Hyperlipid Problem Active 2020-07-24 M emoria emia 21:36:53 l (disorder) [place] n Hyperlipid emia (disorder) [facility] Problem Active 2020-07-24 M emoria ve 21:36:53 l disorder, [place] systemic Hypertensi arterial ve (disorder) disorder, systemic arterial (disorder) Active Problem 07[facility]24/2020 [facility] Allergies, Adverse Reactions, Alerts Allergy Allergy Status Severity Reaction(s) Onset Inactive Treating Comm ents Source Name Type Date Date Clinician codeine codeine Active Memoria sulfate sulfate l [place] Social History Social Habit Start Date Stop Date Quantity Comments Source Sex Assigned At [facility] Social History 2020-06-10 2020-06-10 Gaby jones 20:42:43 20:42:43 Smoking Status Start Date Stop Date Source Never smoker [facility] Medications Ordered Filled Start Stop Current Ordering Indication Dosage Frequency Signature Comments Components Source Medication Medication Date Date Medication? Clinician (SIG) Name Name Melatonin Yes 5 mg, Memoria Gummies 5-19 CHEW, l 13:35: Bedtime, 2 [place] 00 Gummies by mouth at betime, 0 Refill(s) Loratadine Yes 10 mg = 1 Me moria 10 MG Oral 5-19 tab, PO, l Tablet 13:35: Daily, # [place] 00 30 tab, 1 Refill(s) memantine Yes 14 mg, PO, Me moria 14 mg oral 4-29 Daily, # l capsule, 23:15: 30 cap, 2 Herm darin Refill(s), release Pharmacy: [id number], 167.64, cm, 06/10/20 14:53:00 CDT, Height, 75, kg, 06/10/20 14:53:00 CDT, Weight Memantine No 14 mg, PO, Me moria - [...] MG tablet 17:55: daily. Medica l [address] simvastatin Yes 40mg QD Take [address] [facility] (ZOCOR) 40 9-16 by [facility] - MG tablet 17:55: nightly. [facility]i [facility] meloxicam 0 Yes 7.5mg Take 7.[address] [facility] (MOBIC) 7.5 9-16 mg by [facility] - MG tablet 17:55: mouth 2 Medic al 52 (two) Center times daily as needed for Pain. pantoprazol Yes 40mg QD Take [address] [facility] [facility] e 9-16 by mouth [facility] - (PROTONIX) 17:55: daily. Medic al 40 MG 52 Center tablet donepezil Yes 5mg QD Take [address] [facility] [address] (ARICEPT) 5 9-16 by mouth Luke [facility] - MG tablet 17:55: nightly. [address] aspirin 81 2019-0 Yes 81mg QD Take [address] MG EC 9-16 by mouth [facility] - tablet 17:55: daily. [address] citalopram Yes 20mg QD Take [address] (CELEXA) 20 9-16 by mouth [facility] - [facility] 17:55[facility] [address] Vital Signs Vital Name Observation Time Observation Value Comments Source Systolic (mm Hg) 2020-06-10 19:53:00 Satnam rial [place]za Diastolic (mm Hg) 2020-06-10 19:53:00 [facility] orial Reza Heart Rate 2020-06-10 19:53:00 [facility] Respitory Rate 2020-06-10 19:53:00 [facility] Height 2020-06-10 19:53:00 167.64 cm [facility] Weight 2020-06-10 19:53:00 [facility] BMI Calculated 2020-06-10 19:53:00 [facility] [place] Height 2011-01-19 16:42:00 170.18 cm [facility] Weight 2011-01-19 16:42:00 [facility] Procedures Procedure Date / Time Performed Performing Clinician Sourc e Cholecystectomy [facility] Plan of Care Planned Activity Planned Date Details Comments Source Future Scheduled 2019-10-14 INFLUENZA VACCINE (#1) [facility] Test 00:00:00 [code = INFLUENZA Medical Ce nter VACCINE (#1)] Future Scheduled 2019 PNEUMOCOCCAL 65+ YRS [facility] - Test 00:00:00 (1 of 1 - [facility] Center [id number]) [code = PNEUMOCOCCAL 65+ YRS (1 of 1 - [id number] PCV13)] Future Scheduled 2016-02-[address] [facility] - Test 00:00:00 WELLNESS (YEAR 2 or Medical Center FIRST YEAR if no IPPE) [code = MEDICARE ANNUAL WELLNESS (YEAR 2 or FIRST YEAR if no IPPE)] Future Scheduled [address] - Test 00:00:00 (procedure) [code = [facility] Center [id number]] Future Scheduled [address] [facility] - Test 00:00:00 malignant neoplasm of [facility] cervix (procedure) [code = 374900263] Future Scheduled [address] [facility] - Test 00:00:00 malignant neoplasm of [facility] breast (procedure) [code = 813312547] Future Scheduled [address] [facility] - Test 00:00:00 malignant neoplasm of [facility] colon (procedure) [code = 815486433] Encounters Start End Encounter Admission Attending Care Care Encounter Source Date/Time Date/Time Type Type Clinicians Facility Department ID 2020-07-22 2020-07-22 [id number] 11:00:00 11:00:00 Mauro 02 [facility] 2020-06-15 2020-06-15 Outpatient [facility] [id number] 10:00:00 23:59:59 Mauro 01 [facility] 2020-06-10 2020-06-10 [id number] 14:15:00 23:59:59 Mauro 00 [facility] 2019-08-29 2019-10-13 Office [facility] [id number] 13:39:36 09:08:33 Visit Marisabel Cornejo [id number] [place] [id number] [facility] [phone] nal 059 [facility] 2019-10-13 2019-10-13 Telephone [facility] [id number] 00:00:00 00:00:00 Marisabel Cornejo [id number] [place] [id number] [facility] [id number] [facility] 059 [facility] Results Test Description Test Time Test Comments Results Result Comments Source B-TYPE NATRIURETIC FACTOR (BNP) 2018-10-27 20:28:00 Test Item Value Reference Range Interpretation Comme nts B-TYPE NATRIURETIC PEPTIDE (BEAKER) (test code = 700) 35 pg/mL 0-100 TROPONIN [id number] 20:28:00 Test Item Value Reference Range Interpretation Comments TROPONIN I (BEAKER) (test code = 397) < ng/mL 0.00-0.03 [...] failure, acidosis, acute neurological disease, and persistent tachyarrhythmia.[id number] 20:26:00 Test Item Value Reference Range Interpretation Comments D-DIMER QUANTITATIVE (BEAKER) 0.29 MG/L FEU <0.50 (test code = [...] within 95-100% range.RAD, CHEST, 1 VIEW, NON [id number] 20:22:00Reason for exam:->SOBShould this be performed at the bedside?->YesFINAL REPORT INDICATION: SOB COMPARISON: None TECHNIQUE: Single frontal view of the chest. FINDINGS: Lungs and pleura: Mild bibasilar subsegmental atelectasis. No airspace consoli dation. No effusion.Heart and mediastinum: Normal heart size. Unremarkable mediastinal contours.Osseous structures: No acute abnormality.Other: None. IMPRESSION: No active intrathoracic abnormality. Signed: Mo Pollard MDReport Verified Date/Time: 10/27/2018 20:22:18 Reading Location: [address] Neuro Reading Room BASI MET[employer]OLIC [id number] 20:20:00 Test Item Value Reference Range Interpretation [...] PATIEN TS. CBC W/PLT COUNT & AUTO [id number] 20:08:00 Test Item Value Reference Range Interpretation [...] (test code = 2801) CT, BRAIN, WITHOUT [id number] 20:08:00Reason for exam:->h/o glioWhat is the patient's [...] further evaluation as clinically indicated. Signed: Ras Ploanco [facility] Verified Date/Time: 10/27/2018 20:08:37
--- NOTE | 2020-08-28 09:50 | RAD REPORT ---
EXAM DESCRIPTION: CT - Ct Stroke Brain Wo Cont - 08/28/2020 9:41 am CLINICAL HISTORY: APHASIA COMPARISON: Head Brain Wo Cont dated 10/27/2018 FINDINGS: No acute intracranial hemorrhage. No mass effect or midline shift. Remote right occipital craniotomy. Encephalomalacia at the right occipital lobe from prior resection. There are some dystrop hic calcifications in the left occipital lobe which are similar.Moderate white matter disease which i s predominantly parietal occipital lobe which may be from previous treatment. No acute large vascular territory infarct. Paranasal sinuses are well aerated. No mastoid effusion. IMPRESSION: No acute intracranial abnormality. Chronic changes which are similar to 10/27/2018.
[2020-08-28 09:59] LABS: Basophils % 0.3 % (0-1.3); Hematocrit 42.3 % (36.0-45.0); Lymphocytes % 44.3 % (15.3-44.8); MPV 7.7 fL (7.6-11.3); RBC Red Blood Cell Count 4.79 M/uL (3.86-4.86)
[2020-08-28 10:09] LABS: Protime INR 1.01
--- NOTE | 2020-08-28 10:21 | RAD REPORT ---
EXAM DESCRIPTION: RAD - Chest Single View - 08/28/2020 9:55 am CLINICAL HISTORY: aphasia COMPARISON: Chest Pa And Lat (2 Views) dated 06/18/2020; Chest Single View dated 10/27/2018 FINDINGS: No evidence of edema or pneumonia. The heart size is within normal limits.No acute osseous abnormality. No significant pleural effusions or pneumothorax. IMPRESSION: No acute cardiopulmonary disease.
[2020-08-28 10:37] LABS: Potassium 4.1 mmol/L (3.5-5.1)
--- NOTE | 2020-08-28 10:40 | EDPHYS ---
Physician Documentation [facility] Name: Dai Trujillo Age: 65 yrs Sex: Female : 1955 Arrival Date: 08/28/2020 Time: 09:35 Bed 15 Private MD: ED Physician Supa Marte HPI: 08/28 09:37 This 65 yrs old Female presents to ER via Unassigned with complaints of not rn able to speak. 09:37 The patient presents to the emergency department with a speech or higher order brain rn function problem, aphasia. Onset: The symptoms/episode began/occurred at an unknown time. Context: occurred at a senior living or assisted living facility, occurred while the patient was asleep. Associated signs and symptoms: Pertinent positives: headache, Pertinent negatives: altered mental status, fever, seizure, syncope, loss of vision, weakness. Severity of symptoms: At their worst the symptoms were moderate in the emergency department the symptoms have improved. Current symptoms: mild speech problem. The patient has experienced similar episodes in the past. The patient has not recently seen a physician. Unknown onset, patient reports waking up this AM with inability to speak. No known trauma. Not sure when began. Has had brain tumor s/p resection 30 years ago, as well as multiple TIAs in past. Symptoms now improving. No weakness/numbness/vision changes. Takes aspirin. . Historical: - Allergies: 09:57 Codeine; ss - PMHx: 09:57 Alzheimers; Arthritis; brain cancer; Dementia; TIA; ss - Immunization history:: Adult Immunizations unknown. - Family history:: not pertinent. - Social history:: Smoking status: Patient denies any tobacco usage or history of. - Hospitalizations: : No recent hospitalization is reported. ROS: 09:37 Constitutional: Negative for fever, chills, and weight loss, Eyes: Negative for injury, rn pain, redness, and discharge, Neck: Negative for injury, and swelling, Cardiovascular: Negative for chest pain, palpitations, and edema, Respiratory: Negative for shortness of breath, cough, wheezing, and pleuritic chest pain, Abdomen/GI: Negative for abdominal pain, nausea, vomiting, diarrhea, and constipation, Back: Negative for injury and pain, MS/Extremity: Negative for injury and deformity, Skin: Negative for injury, rash, and discoloration, Neuro: Negative for weakness, numbness, tingling, and seizure. 09:37 All other systems are negative. Exam: 09:37 Constitutional: This is a well developed, well nourished patient who is awake, alert, rn and in no acute distress. Head/Face: Normocephalic, atraumatic. Eyes: Pupils equal round and reactive to light, extra-ocular motions intact. Periorbital areas with no swelling, redness, or edema. ENT: MMM Cardiovascular: Regular rate and rhythm. No pulse deficits. Respiratory: No increased work of breathing, no retractions or nasal flaring. Abdomen/GI: soft, non-tender Skin: Warm, dry MS/ Extremity: Pulses equal, no cyanosis. Neurovascular intact. Full, normal range of motion. Equal circumference. Neuro: Awake and alert, GCS 15, oriented to person, place, time, and situation. Cranial nerves II-XII grossly intact. No facial weakness noted. Motor strength 5/5 in all extremities. Sensory grossly intact. Cerebellar exam normal. + mild slurred speech. 10:01 ECG was reviewed by the Attending Physician. rn Vital Signs: 09:35 BP 111 / 93; Pulse 56; Resp 16; Temp 97.0(TE); Pulse Ox 97% on R/A; Weight 72.57 kg; ss Height 5 ft. 6 in. (167.64 cm); Pain 7/10; 12:03 BP 144 / 88; Pulse 58; Resp 18; Pulse Ox 97% on R/A; ph 13:00 BP 146 / 78; Pulse 57; Resp 18; Pulse Ox 98% on R/A; ph 14:00 BP 136 / 78; Pulse 62; Resp 16; Pulse Ox 98% on R/A; ph 15:00 BP 149 / 68; Pulse 58; Resp 18; Temp 97.2; Pulse Ox 100% on R/A; ph 16:34 BP 152 / 66; Pulse 59; Resp 18; Temp 97.4; Pulse Ox 97% on R/A; ph 09:35 Body Mass Index 25.82 (72.57 kg, 167.64 cm) ss MDM: 09:36 Patient medically screened. rn 09:56 ED course: Unknown last known normal, woke up with symptoms and states didn't speak rn with anybody last night, no indication for TPA given unknown last known normal, likely last night, and symptoms improving.. 10:38 Data reviewed: vital signs, nurses notes, lab test result(s), EKG, radiologic studies, rn CT scan, and as a result, I will admit patient. Counseling: I had a detailed discussion with the patient and/or guardian regarding: the historical points, exam findings, and any diagnostic results supporting the discharge/admit diagnosis, lab results, radiology results, the need for further work-up and treatment in the hospital. Response to treatment: the patient's symptoms have mildly improved after treatment, and as a result, I will admit patient. Admission orders: after a detailed discussion of the patient's condition and case, the admit orders are written by me. ED course: Pt with CVA, not completely back to baseline but near baseline, no indication for TPA, getting CTA to rule out LVO and will admit to hospitalist service for further care and neuro consultation. . 08/28 09:37 Order name: Basic Metabolic Panel; Complete Time: 10:38 08/28 09:37 Order name: CBC with Diff; Complete Time: :08/28 09:37 Order name: Protime (+inr); Complete Time: 10:08/28 09:37 Order name: Ptt, Activated; Complete Time: :08/28 13:26 Order name: Urine Dipstick-Ancillary EDVT 08/28 09:37 Order name: CT Stroke Brain w/o Contrast; Complete Time: 10:08/28 09:37 Order name: Stroke CXR 1 View; Complete Time: 10:08/28 10:32 Order name: CT Head Angio; Complete Time: 11:29 08/28 14:50 Order name: SARS-COV-2 RT PCR EDVT 08/28 09:37 Order name: EKG; Complete Time: 09:37 08/28 09:37 Order name: Accucheck; Complete Time: 10:42 08/28 09:37 Order name: Cardiac monitoring; Complete Time: 10:25 08/28 09:37 Order name: EKG - Nurse/Tech; Complete Time: 10:13 08/28 09:37 Order name: IV Saline Lock; Complete Time: 10:42 08/28 09:37 Order name: Labs collected and sent; Complete Time: 10:42 rn 08/28 09:37 Order name: NPO; Complete Time: 10:42 rn 08/28 09:37 Order name: O2 Per Protocol; Complete Time: 10:25 rn 08/28 09:37 Order name: O2 Sat Monitoring; Complete Time: 10:25 rn 08/28 09:37 Order name: Stroke Swallow Screen; Complete Time: 12:03 rn EC:01 Rate is 54 beats/min. Rhythm is regular. QRS [place] is Normal. [place] interval is normal. QRS rn interval is normal. QT interval is normal. No Q waves. T waves are Inverted in leads V2, V3. No ST changes noted. Clinical impression: Sinus bradycardia. Interpreted by me. Reviewed by me. Administered Medications: 12:03 Drug: Aspirin Chewable Tablet 324 mg Route: PO; ph 18:17 Follow up: Response: No adverse reaction ph 12:03 Drug: foLIC Acid 1 mg Route: IVPB; Site: right wrist; ph 12:15 Follow up: Response: No adverse reaction; IV Status: Completed infusion ph 12:03 Drug: NS 0.9% 500 ml Route: IV; Rate: bolus; Site: right forearm; ph 13:00 Follow up: Response: No adverse reaction; IV Status: Completed infusion ph 13:58 Drug: Zofran (Ondansetron) 4 mg Route: IVP; Site: left hand; ph 14:30 Follow up: Response: No adverse reaction ph Disposition Summary: 08/28/20 10:39 Hospitalization Ordered Hospitalization Status: Inpatient Admission rn Provider: Tomas Aguirre rn [facility] rn Condition: Stable rn Problem: new rn Symptoms: have improved rn Bed/Room Type: Standard rn Room Assignment: 230(08/28/20 16:17) eb Diagnosis - Aphasia following cerebral infarction rn Forms: - Medication Reconciliation Form rn - SBAR form rn Signatures: Dispatcher [employer] Supa Rondon MD MD rn Smirch, Shelby, RN RN ss Hall, Patricia, RN RN Lorraine Garrison Corrections: (The following items were deleted from the chart) 13:57 12:46 CORONAVIRUS+MR.LAB.BRZ ordered. EDVT EDVT 16:17 10:39 rn eb
--- NOTE | 2020-08-28 10:40 | ER ---
Nurse's Notes [facility] Name: Dai Trujillo Age: 65 yrs Sex: Female : 1955 Arrival Date: 08/28/2020 Time: 09:35 Bed 15 Private MD: Diagnosis: Aphasia following cerebral infarction Presentation: 08/28 09:35 Chief complaint: EMS states: Woke up this morning around 0800 unable to speak. Unknown ss last known well. Pt is unsure what time she went to bed and if she was having any trouble speaking then. Upon arrival to ER, EMS reports that in just a short amount of time that her speech has improved significantly. Pt is A\T\O x3, speech is slow. Coronavirus screen: Client denies travel out of the [place] in the last 14 days. Ebola Screen: Patient denies exposure to infectious person. Patient denies travel to an Ebola-affected area in the 21 days before illness onset. Initial Sepsis Screen: Does the patient meet any 2 criteria? No. Patient's initial sepsis screen is negative. Does the patient have a suspected source of infection? No. Patient's initial sepsis screen is negative. Risk Assessment: Do you want to hurt yourself or someone else? Patient reports no desire to harm self or others. Onset of symptoms is unknown. Care prior to arrival: IV initiated. 20 GA, in the left hand, Glucose check: 137. 09:35 Method Of Arrival: EMS: [facility] 09:35 Acuity: STEFAN 2 ss Historical: - Allergies: 09:57 Codeine; ss - PMHx: 09:57 Alzheimers; Arthritis; brain cancer; Dementia; TIA; ss - Immunization history:: Adult Immunizations unknown. - Family history:: not pertinent. - Social history:: Smoking status: Patient denies any tobacco usage or history of. - Hospitalizations: : No recent hospitalization is reported. Screenin:57 Abuse screen: Denies threats or abuse. Denies injuries from another. Nutritional ss screening: No deficits noted. Tuberculosis screening: Never had TB. 12:04 Fall Risk Fall in past 12 months (25 points). Secondary diagnosis (15 points) impaired ph mobility, IV access (20 points). Ambulatory Aid- None/Bed Rest/Nurse Assist (0 pts). Gait- Weak (10 pts.). Mental Status- Oriented to own ability (0 pts). Total Taylor Fall Scale indicates High Risk Score (45 or more points). Fall prevention measures have been instituted. Side Rails Up X 2 Placed Close to Nursing Station Frequent Obs/Assessments Occuring Family Present and informed to notify staff if the need to leave the bedside As available patient and family educated on Fall Prevention Program and Strategies. Assessment: 09:35 Reassessment: Pt taken to CT via stretcher by charge nurse IAN Alejandro. ph 09:50 General: Appears in no apparent distress. comfortable, well groomed, Behavior is calm, ph cooperative, appropriate for age, Denies fever, feeling ill. Pain: Denies pain. Neuro: Level of Consciousness is awake, alert, obeys commands, Oriented to person, place, situation, Tool Filer are equal bilaterally Moves all extremities. Speech is slurred, Intact Reports dizziness. Cardiovascular: Capillary refill < 3 seconds in bilateral fingers Patient's skin is warm and dry. Respiratory: Airway is patent Respiratory effort is even, unlabored, Respiratory pattern is regular, symmetrical. GI: No signs and/or symptoms were reported involving the gastrointestinal system. Derm: Skin is intact, is healthy with good turgor, Skin is. Musculoskeletal: Circulation, motion, and sensation intact. Range of motion: intact in all extremities. 11:00 Reassessment: Patient appears in no apparent distress at this time. Patient and/or ph family updated on plan of care and expected duration. Pain level reassessed. Patient is alert, oriented x 3, equal unlabored respirations, skin warm/dry/pink. 12:00 Reassessment: Pt assisted up to bedside commode, unsteady on feet and continues to c/o ph dizziness. 13:00 Reassessment: Patient appears in no apparent distress at this time. Patient and/or ph family updated on plan of care and expected duration. Pain level reassessed. Patient is alert, oriented x 3, equal unlabored respirations, skin warm/dry/pink. 14:30 Reassessment: Patient appears in no apparent distress at this time. Patient and/or ph family updated on plan of care and expected duration. Pain level reassessed. Patient is alert, oriented x 3, equal unlabored respirations, skin warm/dry/pink. at bedside brought pt chicken and fries, tolerating well at this time. 15:00 Reassessment: Patient appears in no apparent distress at this time. Patient and/or ph family updated on plan of care and expected duration. Pain level reassessed. Patient is alert, oriented x 3, equal unlabored respirations, skin warm/dry/pink. 16:15 Reassessment: Patient appears in no apparent distress at this time. Patient and/or ph family updated on plan of care and expected duration. Pain level reassessed. Patient is alert, oriented x 3, equal unlabored respirations, skin warm/dry/pink. Assisted to bedside commode, remains unsteady. Vital Signs: 09:35 BP 111 / 93; Pulse 56; Resp 16; Temp 97.0(TE); Pulse Ox 97% on R/A; Weight 72.57 kg; ss Height 5 ft. 6 in. (167.64 cm); Pain 7/10; 12:03 BP 144 / 88; Pulse 58; Resp 18; Pulse Ox 97% on R/A; ph 13:00 BP 146 / 78; Pulse 57; Resp 18; Pulse Ox 98% on R/A; ph 14:00 BP 136 / 78; Pulse 62; Resp 16; Pulse Ox 98% on R/A; ph 15:00 BP 149 / 68; Pulse 58; Resp 18; Temp 97.2; Pulse Ox 100% on R/A; ph 16:34 BP 152 / 66; Pulse 59; Resp 18; Temp 97.4; Pulse Ox 97% on R/A; ph 09:35 Body Mass Index 25.82 (72.57 kg, 167.64 cm) ss ED Course: 09:35 Patient arrived in ED. ph 09:35 Lauren Baldwin, RN is Primary Nurse. ph 09:36 Supa Marte MD is Attending Physician. rn 09:41 CT Stroke Brain w/o Contrast In Process Unspecified. EDMS 09:50 Initial lab(s) drawn, by me, sent to lab. Maintain EMS IV. Dressing intact. Good blood ss return noted. Site clean \T\ dry. Gauge \T\ site: 20 gauge in L hand. Patient maintains SpO2 saturation greater than 95% on room air. 09:55 Stroke CXR 1 View In Process Unspecified. EDMS 09:56 Triage completed. ss 09:57 Arm band placed on right wrist. ss 09:57 Patient has correct armband on for positive identification. Placed in gown. Bed in low ss position. Call light in reach. Side rails up X 1. monitor technician on. Pulse ox on. NIBP on. Warm blanket given. 10:14 EKG done, by ED staff, reviewed by Supa Marte MD. em1 10:39 Tomas Aguirre DO is Hospitalizing Provider. rn 11:00 No provider procedures requiring assistance completed. Inserted saline lock: 22 gauge ph in right wrist, using aseptic technique. 11:12 CT Head Angio In Process Unspecified. EDMS 17:00 Patient admitted, IV remains in place. ph Administered Medications: 12:03 Drug: Aspirin Chewable Tablet 324 mg Route: PO; ph 18:17 Follow up: Response: No adverse reaction ph 12:03 Drug: foLIC Acid 1 mg Route: IVPB; Site: right wrist; ph 12:15 Follow up: Response: No adverse reaction; IV Status: Completed infusion ph 12:03 Drug: NS 0.9% 500 ml Route: IV; Rate: bolus; Site: right forearm; ph 13:00 Follow up: Response: No adverse reaction; IV Status: Completed infusion ph 13:58 Drug: Zofran (Ondansetron) 4 mg Route: IVP; Site: left hand; ph 14:30 Follow up: Response: No adverse reaction ph Outcome: 10:39 Decision to Hospitalize by Provider. rn 17:49 Patient left the ED. ph 17:49 Admitted to Med/surg accompanied by tech, via stretcher, with chart. ph 17:49 Condition: stable 17:49 Instructed on the need for admit. Signatures: Dispatcher [employer] EDAR Supa Marte MD MD rn Martinez, Eric em1 Flavia Charles RN RN ss Hall, Patricia, RN RN ph Corrections: (The following items were deleted from the chart) 19:43 14:00 Reassessment: Patient appears in no apparent distress at this time. Patient ph and/or family updated on plan of care and expected duration. Pain level reassessed. Patient is alert, oriented x 3, equal unlabored respirations, skin warm/dry/pink. Dr at bedside brought pt chicken and fries, tolerating well at this time ph
[2020-08-28] MEDS ORDERED: NA CHLORIDE 0.9% 500 ML ONE (11:09)
[2020-08-28] MEDS ORDERED: ASPIRIN 81 MG CHEWABLE TABLET ONE (11:09)
[2020-08-28] MEDS ORDERED: FOLIC ACID 5 MG/ML VIAL ONE (11:10)
--- NOTE | 2020-08-28 11:22 | RAD REPORT ---
EXAM DESCRIPTION: CT - Head angio - 08/28/2020 11:12 am CLINICAL HISTORY: APHASIA COMPARISON: <Comparisons> TECHNIQUE: CT angiography of the head was performed with MIPs. All CT scans are performed using dose optimization technique as appropriate and may include automated exposure control or mA/KV adjustment according to patient size. FINDINGS: No evidence of aneurysm is detected. No flow-limiting stenosis or vascular malformation id entified. Antegrade flow is seen in the vertebral arteries. The vertebral arteries are codominant. The visualized dural venous sinuses are patent. IMPRESSION: No significant flow abnormality is detected.
[2020-08-28 13:26] LABS: Urine Blood Negative (Negative); Urine Glucose Negative (Negative); Urine Protein Negative (Negative); Urine Specific Gravity 1.015 (1.005-1.030)
[2020-08-28] MEDS ORDERED: ONDANSETRON 4 MG/2 ML VIAL ONE (14:16)
--- NOTE | 2020-08-28 14:35 | P.HP ---
Certification for Inpatient Patient admitted to: Inpatient With expected LOS: >2 Midnights Patient will require the following post-hospital care: None Practitioner: I am a practitioner with admitting privileges, knowledge of patient current condition, hospital course, and medical plan of care. Services: Services provided to patient in accordance with Admission requirements found in Title 42 Section 412.3 of the Code of Federal Regulations Patient History Date of Service: 08/28/20 Physical Examination - Studies Laboratory Data (last 24 hrs) 08/28/20 09:50: PT 11.6, INR 1.01, APTT 25.9 08/28/20 09:50: WBC 6.80, Hgb 14.4, Hct 42.3, Plt Count 166 08/28/20 09:50: Sodium 142, Potassium 4.1, BUN 22 H, Creatinine 0.72, Glucose 100 Assessment and Plan - Plan CT head: COMPARISON: Head Brain Wo Cont dated 10/27/2018 FINDINGS: No acute intracranial hemorrhage. No mass effect or midline shift. Remote right occipital craniotomy. Encephalomalacia at the right occipital lobe from prior resection. There are some dystrophic calcifications in the left occipital lobe which are similar.Moderate white matter disease which is predominantly parietal occipital lobe which may be from previous treatment. No acute large vascular territory infarct. Paranasal sinuses are well aerated. No mastoid effusion. IMPRESSION: No acute intracranial abnormality. Chronic changes which are similar to 10/27/2018. CTA: COMPARISON: <Comparisons> TECHNIQUE: CT angiography of the head was performed with MIPs. All CT scans are performed using dose optimization technique as appropriate and may include automated exposure control or mA/KV adjustment according to patient size. FINDINGS: No evidence of aneurysm is detected. No flow-limiting stenosis or vascular malformation identified. Antegrade flow is seen in the vertebral arteries. The vertebral arteries are codominant. The visualized dural venous sinuses are patent. IMPRESSION: No significant flow abnormality is detected. Chest x-ray: COMPARISON: Chest Pa And Lat (2 Views) dated 06/18/2020; Chest Single View dated 10/27/2018 FINDINGS: No evidence of edema or pneumonia. The heart size is within normal limits.No acute osseous abnormality. No significant pleural effusions or pneumothorax. IMPRESSION: No acute cardiopulmonary disease. Physical Exam: GENERAL: Patient alert, cooperative. Aphasia improved. Patient able to talk appropriately but not at 100%. VITAL SIGNS: Reviewed HEENT: Head is normocephalic and atraumatic. Extraocular muscles are intact. Pupils are equal, round, and reactive to light and accommodation. Nares appeared normal. Mouth is well hydrated and without lesions. Mucous membranes are moist. NECK: Supple. No carotid bruits. No lymphadenopathy or thyromegaly. LUNGS: Clear to auscultation. No crackles or wheezes are heard. HEART: Regular rate and rhythm, no appreciable gallops, rubs, murmurs or extra heart sounds ABDOMEN: Soft, nontender, and nondistended. Positive bowel sounds. No hepatosplenomegaly was noted. EXTREMITIES: Without any cyanosis, clubbing, rash, lesions or peripheral edema. NEUROLOGIC: No focal deficits. Face appears symmetric. Patient oriented to time place and person. Aphasia significantly improved. Patient appears to be back to her baseline this was confirmed with family. SKIN: Normal color, turgor and temperature. No ulcerations or rashes noted. Impression: Aphasia, improved likely TIA with history of TIA complicated with prior glioblastoma requiring major surgery Hypertension Hyperlipidemia Plan: Aphasia, improved likely TIA with history of TIA complicated with prior glioblastoma requiring major surgery: Patient will be admitted for further evaluation and treatment. Continue aspirin 81 mg daily. Add Plavix 25 mg daily. Continue with her blood pressure medication Norvasc 5 mg daily. Will confirm home medications. Will add folic acid, thiamine and Lovenox for DVT prophylaxis. Will obtain echocardiogram, carotid Doppler and stroke protocol MRI. Will consult her neurologist Dr. Grayson for further recommendation. Nurses to perform bedside swallow evaluation. If abnormal will continue with speech evaluation. Physical therapy and Occupational Therapy ordered. Stroke protocol to be continued. Will monitor closely. CODE STATUS addressed. Patient is DO NOT RESUSCITATE. Patient plans to go home at discharge. Anticipate improvement over the next 48 to 72 hours. Hypertension: Restart Norvasc. Will obtain restart home medication. Maintain blood pressure around 160-180 systolic. Then gradually get better control of blood pressure over the next 2 to 3 days. Hyperlipidemia: Will check fasting lipid panel. Will start Lipitor 80 mg daily Code Status: Patient is DO NOT RESUSCITATE. DVT prophylaxis: Lovenox Advanced Care Planning-30 minutes: Patient desires to go home at discharge. Await recommendations by physical therapy and Occupational Therapy. Discharge Plan: Home Plan to discharge in: 72 Hours - Advance Directives Does patient have a Living Will: No Does patient have a Durable POA for Healthcare: No - Code Status/Comfort Care Code Status Assessed: Yes (Patient is DO NOT RESUSCITATE) Time Spent Managing Pts Care (In Minutes): 55
--- NOTE | 2020-08-28 14:38 | P.HP ---
Certification for Inpatient Patient admitted to: Inpatient With expected LOS: >2 Midnights Patient will require the following post-hospital care: None Practitioner: I am a practitioner with admitting privileges, knowledge of patient current condition, hospital course, and medical plan of care. Services: Services provided to patient in accordance with Admission requirements found in Title 42 Section 412.3 of the Code of Federal Regulations Patient History Date of Service: 08/28/20 Primary Care Provider: alf Reason for admission: Aphasia History of Present Illness: 65-year-old female with history of glioblastoma with prior surgery in 1995, hypertension and TIA. Patient was doing fine yesterday. She woke up with aphasia. This was noted by group home. Patient denies any significant nausea, vomiting. Patient had reported some mild dizziness and difficulty walking as reported by daughter. She denies any chest pain, shortness of breath. Patient was brought in to the ER for further evaluation. In the ER patient was evaluated. CT head unremarkable. CTA unremarkable. Chest x-ray unremarkable. CBC within normal range. Sodium 142, potassium 4.2. BUN of 22, creatinine 0.7 with a GFR of 81. Glucose 101. Patient was admitted for further evaluation and treatment. Home medications list reviewed: Yes - Past Medical/Surgical History Diabetic: No -: History of TIA -: History of glioblastoma with prior surgery -: Hypertension -: Brain surgery to remove glioblastoma 1995 Psychosocial/ Personal History: Patient lives at group home - Family History Family History: Reviewed- Non-Contributory - Social History Smoking Status: Never smoker Alcohol use: No CD- Drugs: No Caffeine use: No Place of Residence: Group Home Review of Systems General: As per HPI Eyes: Unremarkable ENT: As per HPI Respiratory: Unremarkable Cardiovascular: Light Headedness, As per HPI Gastrointestinal: Unremarkable Genitourinary: Unremarkable Musculoskeletal: Unremarkable Integumentary: Unremarkable Neurological: Change in Speech, As per HPI Lymphatics: Unremarkable Physical Examination - Studies Laboratory Data (last 24 hrs) 08/28/20 09:50: PT 11.6, INR 1.01, APTT 25.9 08/28/20 09:50: WBC 6.80, Hgb 14.4, Hct 42.3, Plt Count 166 08/28/20 09:50: Sodium 142, Potassium 4.1, BUN 22 H, Creatinine 0.72, Glucose 100 Assessment and Plan - Plan CT head: COMPARISON: Head Brain Wo Cont dated 10/27/2018 FINDINGS: No acute intracranial hemorrhage. No mass effect or midline shift. Remote right occipital craniotomy. Encephalomalacia at the right occipital lobe from prior resection. There are some dystrophic calcifications in the left occipital lobe which are similar.Moderate white matter disease which is predominantly parietal occipital lobe which may be from previous treatment. No acute large vascular territory infarct. Paranasal sinuses are well aerated. No mastoid effusion. IMPRESSION: No acute intracranial abnormality. Chronic changes which are similar to 10/27/2018. CTA: COMPARISON: <Comparisons> TECHNIQUE: CT angiography of the head was performed with MIPs. All CT scans are performed using dose optimization technique as appropriate and may include automated exposure control or mA/KV adjustment according to patient size. FINDINGS: No evidence of aneurysm is detected. No flow-limiting stenosis or vascular malformation identified. Antegrade flow is seen in the vertebral arteries. The vertebral arteries are codominant. The visualized dural venous sinuses are patent. IMPRESSION: No significant flow abnormality is detected. Chest x-ray: COMPARISON: Chest Pa And Lat (2 Views) dated 06/18/2020; Chest Single View dated 10/27/2018 FINDINGS: No evidence of edema or pneumonia. The heart size is within normal limits.No acute osseous abnormality. No significant pleural effusions or pneumothorax. IMPRESSION: No acute cardiopulmonary disease. Physical Exam: GENERAL: Patient alert, cooperative. Aphasia improved. Patient able to talk appropriately but not at 100%. VITAL SIGNS: Reviewed HEENT: Head is normocephalic and atraumatic. Extraocular muscles are intact. Pupils are equal, round, and reactive to light and accommodation. Nares appeared normal. Mouth is well hydrated and without lesions. Mucous membranes are moist. NECK: Supple. No carotid bruits. No lymphadenopathy or thyromegaly. LUNGS: Clear to auscultation. No crackles or wheezes are heard. HEART: Regular rate and rhythm, no appreciable gallops, rubs, murmurs or extra heart sounds ABDOMEN: Soft, nontender, and nondistended. Positive bowel sounds. No hepatosplenomegaly was noted. EXTREMITIES: Without any cyanosis, clubbing, rash, lesions or peripheral edema. NEUROLOGIC: No focal deficits. Face appears symmetric. Patient oriented to time place and person. Aphasia significantly improved. Patient appears to be back to her baseline this was confirmed with family. SKIN: Normal color, turgor and temperature. No ulcerations or rashes noted. Impression: Aphasia, improved likely TIA with history of TIA complicated with prior glioblastoma requiring major surgery Hypertension Hyperlipidemia Plan: Aphasia, improved likely TIA with history of TIA complicated with prior glioblastoma requiring major surgery: Patient will be admitted for further evaluation and treatment. Continue aspirin 81 mg daily. Add Plavix 25 mg daily. Continue with her blood pressure medication Norvasc 5 mg daily. Will confirm home medications. Will add folic acid, thiamine and Lovenox for DVT prophylaxis. Will obtain echocardiogram, carotid Doppler and stroke protocol MRI. Will consult her neurologist Dr. Grayson for further recommendation. Nurses to perform bedside swallow evaluation. If abnormal will continue with speech evaluation. Physical therapy and Occupational Therapy ordered. Stroke protocol to be continued. Will monitor closely. CODE STATUS addressed. Patient is DO NOT RESUSCITATE. Patient plans to go home at discharge. Anticipate improvement over the next 48 to 72 hours. Hypertension: Restart Norvasc. Will obtain restart home medication. Maintain blood pressure around 160-180 systolic. Then gradually get better control of blood pressure over the next 2 to 3 days. Hyperlipidemia: Will check fasting lipid panel. Will start Lipitor 80 mg daily Code Status: Patient is DO NOT RESUSCITATE. DVT prophylaxis: Lovenox Advanced Care Planning-30 minutes: Patient desires to go home at discharge. Await recommendations by physical therapy and Occupational Therapy. - Advance Directives Does patient have a Living Will: No Does patient have a Durable POA for Healthcare: No - Code Status/Comfort Care Code Status Assessed: Yes (Patient is DO NOT RESUSCITATE) Time Spent Managing Pts Care (In Minutes): 55
[2020-08-28] MEDS ORDERED: ACETAMINOPHEN 650MG/RECT SUPP PR PRN (17:50)
[2020-08-28] MEDS ORDERED: ONDANSETRON 4 MG/2 ML VIAL IV PRN (17:50)
[2020-08-28] MEDS ORDERED: ACETAMINOPHEN 500 MG TAB PO PRN (17:50)
[2020-08-28] MEDS: D5 0.45 NS 1,000 ML IV SCH (18:50)
[2020-08-28 19:39] VITALS: BMI 25.7
[2020-08-28] MEDS: ATORVASTATIN 80 MG TAB PO SCH (20:40)
--- NOTE | 2020-08-28 20:43 | RAD REPORT ---
EXAM DESCRIPTION: - CP - 08/28/2020 8:35 pm CLINICAL HISTORY: aphasia, TIA, HTN COMPARISON: Thoracic Spine W/o Cont dated 07/08/2020; Head angio dated 08/28/2020 TECHNIQUE: Real-time sonographic evaluation of both carotid systems was performed. Doppler interroga tion was performed with waveform tracing bilaterally. FINDINGS: Normal high resistance waveforms are noted in both external carotid arteries. The common c arotid arteries and internal carotid arteries show normal low resistance waveforms. Mild noncalcified soft plaque at the left carotid bulb. Peak systolic and end diastolic velocity valu es and the ICA/CCA ratios are in the non-hemodynamically significant range. Antegrade flow seen in both vertebral arteries. IMPRESSION: Mild soft plaque at the left carotid bulb without stenosis. No evidence of a hemodynamically significant stenosis.
[2020-08-28] MEDS: MELATONIN 5 MG TABLET PO PRN (21:55)
[2020-08-29 05:35] LABS: Absolute Lymphocytes (CBC) 3.1 K/uL (0.7-4.9); Basophils % 0.2 % (0-1.3); Hematocrit 40.1 % (36.0-45.0); Lymphocytes % 40.1 % (15.3-44.8); MPV 8.3 fL (7.6-11.3); RBC Red Blood Cell Count 4.52 M/uL (3.86-4.86)
[2020-08-29 06:01] LABS: Potassium 3.7 mmol/L (3.5-5.1); Thyroid Stimulating Hormone 2.4 uIU/mL (0.360-3.740)
--- NOTE | 2020-08-29 06:06 | P.PN ---
Subjective Date of Service: 08/29/20 Primary Care Provider: group home Chief Complaint: Aphasia Subjective: Improving, Doing well Physical Examination - Vital Signs Temperature: 97.1 F Blood Pressure: 127/60 Pulse: 65 Respirations: 18 Pulse Ox (%): 95 - Studies Laboratory Data (last 24 hrs) 08/28/20 09:50: PT 11.6, INR 1.01, APTT 25.9 08/28/20 09:50: WBC 6.80, Hgb 14.4, Hct 42.3, Plt Count 166 08/28/20 09:50: Sodium 142, Potassium 4.1, BUN 22 H, Creatinine 0.72, Glucose 100 Assessment & Plan Discharge Plan: Other (Home versus skilled placement) Plan to discharge in: 24 Hours Physician Review Additional Text: CT head: COMPARISON: Head Brain Wo Cont dated 10/27/2018 FINDINGS: No acute intracranial hemorrhage. No mass effect or midline shift. Remote right occipital craniotomy. Encephalomalacia at the right occipital lobe from prior resection. There are some dystrophic calcifications in the left occipital lobe which are similar.Moderate white matter disease which is predominantly parietal occipital lobe which may be from previous treatment. No acute large vascular territory infarct. Paranasal sinuses are well aerated. No mastoid effusion. IMPRESSION: No acute intracranial abnormality. Chronic changes which are similar to 10/27/2018. CTA: COMPARISON: <Comparisons> TECHNIQUE: CT angiography of the head was performed with MIPs. All CT scans are performed using dose optimization technique as appropriate and may include automated exposure control or mA/KV adjustment according to patient size. FINDINGS: No evidence of aneurysm is detected. No flow-limiting stenosis or vascular malformation identified. Antegrade flow is seen in the vertebral arteries. The vertebral arteries are codominant. The visualized dural venous sinuses are patent. IMPRESSION: No significant flow abnormality is detected. Chest x-ray: COMPARISON: Chest Pa And Lat (2 Views) dated 06/18/2020; Chest Single View dated 10/27/2018 FINDINGS: No evidence of edema or pneumonia. The heart size is within normal limits.No acute osseous abnormality. No significant pleural effusions or pneumothorax. IMPRESSION: No acute cardiopulmonary disease. Physical Exam: GENERAL: Patient alert, cooperative. Patient appears to be better and to her baseline VITAL SIGNS: Reviewed HEENT: Head is normocephalic and atraumatic. Extraocular muscles are intact. Pupils are equal, round, and reactive to light and accommodation. Nares appeared normal. Mouth is well hydrated and without lesions. Mucous membranes are moist. NECK: Supple. No carotid bruits. No lymphadenopathy or thyromegaly. LUNGS: Clear to auscultation. No crackles or wheezes are heard. HEART: Regular rate and rhythm, no appreciable gallops, rubs, murmurs or extra heart sounds ABDOMEN: Soft, nontender, and nondistended. Positive bowel sounds. No hepatosplenomegaly was noted. EXTREMITIES: Without any cyanosis, clubbing, rash, lesions or peripheral edema. NEUROLOGIC: No focal deficits. Face appears symmetric. Patient oriented to time place and person. Patient appears to be at her baseline SKIN: Normal color, turgor and temperature. No ulcerations or rashes noted. Impression: Aphasia, improved likely TIA with history of TIA complicated with prior glioblastoma requiring major surgery Hypertension Hyperlipidemia Plan: Aphasia, improved likely TIA with history of TIA complicated with prior glio blastoma requiring major surgery: Patient overall stable. Continue aspirin 81 mg daily and Plavix. Continue with blood pressure medication. Other medication includes folic acid, thiamine, Lovenox and Lipitor. Will obtain echocardiogram and stroke protocol MRI. Will consult her neurologist Dr. Grayson for further recommendation. Wait recommendations. Patient on clear liquid diet. Advance as tolerated. Physical therapy and Occupational Therapy ordered. Stroke protocol to be continued. Will monitor closely. CODE STATUS addressed. Patient is DO NOT RESUSCITATE. Patient plans to go home at discharge. Anticipate improvement over the next 48 to 72 hours. Hypertension: Continue Norvasc. Parameters in place. Maintain blood pressure around 160-180 systolic. Then gradually get better control of blood pressure over the next 2 to 3 days. Hyperlipidemia: Continue Lipitor 80 mg daily. Code Status: Patient is DO NOT RESUSCITATE. DVT prophylaxis: Lovenox Advanced Care Planning-30 minutes: Patient desires to go home at discharge. Await recommendations by physical therapy and Occupational Therapy. Time Spent Managing Pts Care (In Minutes): 55
[2020-08-29] MEDS ORDERED: POTASSIUM 25 MEQ EFFERV TAB PO ONE (09:00)
[2020-08-29] MEDS: ENOXAPARIN 40 MG/0.4 ML SQ SCH (09:48)
[2020-08-29] MEDS: ASPIRIN EC 81 MG TAB PO SCH (09:48)
[2020-08-29] MEDS: THIAMINE HCL 100 MG TABLET PO SCH (09:48)
[2020-08-29] MEDS: CLOPIDOGREL 75 MG TABLET PO SCH (09:48)
[2020-08-29] MEDS: FOLIC ACID 1 MG TABLET PO SCH (09:48)
[2020-08-29] MEDS: AMLODIPINE 5 MG TAB PO SCH (09:49)
[2020-08-29] MEDS: D5 0.45 NS 1,000 ML IV SCH (13:50)
[2020-08-29] MEDS: MELATONIN 5 MG TABLET PO PRN (20:22)
[2020-08-29] MEDS: ATORVASTATIN 80 MG TAB PO SCH (20:22)
[2020-08-30 04:11] LABS: Absolute Lymphocytes (CBC) 2.8 K/uL (0.7-4.9); Basophils % 0.2 % (0-1.3); Hematocrit 39.9 % (36.0-45.0); Lymphocytes % 43.3 % (15.3-44.8); MPV 8.5 fL (7.6-11.3); RBC Red Blood Cell Count 4.55 M/uL (3.86-4.86)
[2020-08-30 04:24] LABS: Potassium 3.6 mmol/L (3.5-5.1)
--- NOTE | 2020-08-30 06:14 | P.DS ---
Admission Date: 08/28/20 Discharge Date: 08/30/20 Primary Care Provider: intermediate Disposition: DC HOME/HOME HEALTH CARE Discharge Condition: GOOD Reason for Admission: Aphasia Consultations: Neurology-Dr. Grayson Procedures: CT head: COMPARISON: Head Brain Wo Cont dated 10/27/2018 FINDINGS: No acute intracranial hemorrhage. No mass effect or midline shift. Remote right occipital craniotomy. Encephalomalacia at the right occipital lobe from prior resection. There are some dystrophic calcifications in the left occipital lobe which are similar.Moderate white matter disease which is predominantly parietal occipital lobe which may be from previous treatment. No acute large vascular territory infarct. Paranasal sinuses are well aerated. No mastoid effusion. IMPRESSION: No acute intracranial abnormality. Chronic changes which are similar to 10/27/2018. CTA: COMPARISON: <Comparisons> TECHNIQUE: CT angiography of the head was performed with MIPs. All CT scans are performed using dose optimization technique as appropriate and may include automated exposure control or mA/KV adjustment according to patient size. FINDINGS: No evidence of aneurysm is detected. No flow-limiting stenosis or vascular malformation identified. Antegrade flow is seen in the vertebral arteries. The vertebral arteries are codominant. The visualized dural venous sinuses are patent. IMPRESSION: No significant flow abnormality is detected. Chest x-ray: COMPARISON: Chest Pa And Lat (2 Views) dated 06/18/2020; Chest Single View dated 10/27/2018 FINDINGS: No evidence of edema or pneumonia. The heart size is within normal limits.No acute osseous abnormality. No significant pleural effusions or pneumothorax. IMPRESSION: No acute cardiopulmonary disease. MRI Brain: COMPARISON: MRA Head Wo Cont dated 08/30/2020; Head angio dated 08/28/2020 FINDINGS: Advanced T2/FLAIR hyperintense signal throughout the centrum semiovale and titus radiata. Encephalomalacia in the right occipital lobe. Changes of prior right occipital craniotomy. No acute infarct identified. No mass effect or midline shift. No abnormal enhancement. No mastoid effusion. Cerebral atrophy. IMPRESSION: No acute intracranial abnormality. No evidence of acute infarct or abnormal enhancement. MRA Brain: COMPARISON: Brain W/Wo Cont dated 08/30/2020 FINDINGS: The anterior circulation is intact. The bilateral middle cerebral arteries and anterior cerebral arteries are patent. There is a moderate to severe focal stenosis of the right P1 segment of the posterior cerebral artery. The left posterior cerebral artery is patent. No aneurysm is seen. No large vessel occlusion. Remote right occipital lobe insult. IMPRESSION: Moderate to severe stenosis of the right P1 segment of the posterior cerebral artery. The anterior circulation is widely patent. MRA Neck: COMPARISON: Carotid Artery Bilateral dated 08/28/2020 FINDINGS: Widely patent bilateral carotid systems as well as the vertebral arteries. No stenoses are identified. No evidence of a vascular dissection. IMPRESSION: Unremarkable MRA of the neck. Carotid Doppler: COMPARISON: Thoracic Spine W/o Cont dated 07/08/2020; Head angio dated 08/28/2020 TECHNIQUE: Real-time sonographic evaluation of both carotid systems was performed. Doppler interrogation was performed with waveform tracing bilaterally. FINDINGS: Normal high resistance waveforms are noted in both external carotid a rteries. The common carotid arteries and internal carotid arteries show normal low resistance waveforms. Mild noncalcified soft plaque at the left carotid bulb. Peak systolic and end diastolic velocity values and the ICA/CCA ratios are in the non-hemodynamically significant range. Antegrade flow seen in both vertebral arteries. IMPRESSION: Mild soft plaque at the left carotid bulb without stenosis. No evidence of a hemodynamically significant stenosis. Impression: Aphasia, improved likely TIA with history of TIA complicated with prior glioblastoma requiring major surgery Moderate to severe stenosis of the right P1 segment of posterior cerebral artery Hypertension Hyperlipidemia Brief History of Present Illness: 65-year-old female with history of glioblastoma with prior surgery in 1995, hypertension and TIA. Patient was doing fine yesterday. She woke up with aphasia. This was noted by correction. Patient denies any significant nausea, vomiting. Patient had reported some mild dizziness and difficulty walking as reported by daughter. She denies any chest pain, shortness of breath. Patient was brought in to the ER for further evaluation. In the ER patient was evaluated. CT head unremarkable. CTA unremarkable. Chest x-ray unremarkable. CBC within normal range. Sodium 142, potassium 4.2. BUN of 22, creatinine 0.7 with a GFR of 81. Glucose 101. Patient was admitted for further evaluation and treatment. Hospital Course: Patient presented with aphasia. This improved. Patient was admitted for further evaluation. Patient with history of TIA complicated with prior glioblastoma requiring major surgery. Patient likely with TIA. Patient was monitored closely. MRI brain shows no acute stroke. MRA brain shows moderate to severe stenosis of the right P1 segment of the posterior cerebral artery. Anterior circulation widely patent. Patient has done well. Patient back to her normal baseline. LDL 62, total triglycerides 137. Case discussed with her neurologist. At discharge the patient will continue with aspirin 81 mg daily, Plavix 25 mg daily, folic acid 1 mg daily, and Lipitor 80 mg daily. Home health and physical therapy will be arranged at the assisted living facility where she is from. Recommend follow-up with neurology within 1 to 2 weeks to follow his hospitalization and continue her care. Recommend follow-up with her PCP in 1 week to follow-up this hospitalization. Education on TIA will be provided. Fall precautions in place. Patient with hypertension. Patient stable on Norvasc. At discharge we will continue with Norvasc 5 mg daily. Recommend to maintain blood pressure less than 130/80. Further adjustment can be done by her PCP. Patient with hyperlipidemia. At discharge we will continue with Lipitor 80 mg daily. Recommend to recheck fasting lipid panel in 6 to 8 weeks to monitor progress. Further adjustment can be done by her PCP. Vital Signs/Physical Exam: Temp Pulse Resp BP Pulse Ox 97.0 F 70 18 127/71 94 08/30/20 00:00 08/30/20 00:00 08/30/20 00:00 08/30/20 00:00 08/30/20 00:00 General: Alert, In no apparent distress, Oriented x3, Cooperative HEENT: Atraumatic Neck: Supple Respiratory: Clear to auscultation bilaterally, Normal air movement Cardiovascular: Normal pulses, Regular rate/rhythm Gastrointestinal: Normal bowel sounds, No tenderness, No masses, No rebound, No guarding Musculoskeletal: No erythema, No tenderness, No warmth Integumentary: No tenderness/swelling Neurological: Normal speech, Normal strength at 5/5 x4 extr, Normal tone, Normal affect Laboratory Data at Discharge: WBC 6.50 K/uL (4.3-10.9) D 08/30/20 03:25 Hgb 13.9 g/dL (12.0-15.0) 08/30/20 03:25 Hct 39.9 % (36.0-45.0) 08/30/20 03:25 Plt Count 161 K/uL (152-406) 08/30/20 03:25 PT 11.6 SECONDS (9.5-12.5) 08/28/20 09:50 INR 1.01 08/28/20 09:50 APTT 25.9 SECONDS (24.3-36.9) 08/28/20 09:50 Sodium 141 mmol/L (136-145) 08/30/20 03:25 Potassium 3.6 mmol/L (3.5-5.1) 08/30/20 03:25 BUN 12 mg/dL (7-18) 08/30/20 03:25 Creatinine 0.75 mg/dL (0.55-1.3) 08/30/20 03:25 Glucose 102 mg/dL (74-106) 08/30/20 03:25 Magnesium 2.0 mg/dL (1.8-2.4) 08/30/20 03:25 Triglycerides 137 mg/dL (<150) 08/29/20 05:06 Cholesterol 136 mg/dL (<200) 08/29/20 05:06 HDL Cholesterol 47 mg/dL (40-60) 08/29/20 05:06 Cholesterol/HDL Ratio 2.89 08/29/20 05:06 Home Medications: Amlodipine [Norvasc*] 5 mg PO DAILY #30 tab 08/30/20 Aspirin [Aspirin EC 81 MG] 81 mg PO DAILY #90 tablet. 08/30/20 Atorvastatin Calcium [Lipitor] 80 mg PO BEDTIME #30 tablet 08/30/20 Clopidogrel Bisulfate [Plavix*] 75 mg PO DAILY #30 tablet 08/30/20 Folic Acid 1 mg PO DAILY #90 tablet 08/30/20 New Medications: Aspirin [Aspirin EC 81 MG] 81 mg PO DAILY #90 tablet. Folic Acid 1 mg PO DAILY #90 tablet Atorvastatin Calcium [Lipitor] 80 mg PO BEDTIME #30 tablet Amlodipine [Norvasc*] 5 mg PO DAILY #30 tab Clopidogrel Bisulfate [Plavix*] 75 mg PO DAILY #30 tablet Physician Discharge Instructions: Patient presented with aphasia. This improved. Patient was admitted for further evaluation. Patient with history of TIA complicated with prior glioblastoma requiring major surgery. Patient likely with TIA. Patient was monitored closely. MRI brain shows no acute stroke. MRA brain shows moderate to severe stenosis of the right P1 segment of the posterior cerebral artery. Anterior circulation widely patent. Patient has done well. Patient back to her normal baseline. LDL 62, total triglycerides 137. Case discussed with her neurologist. At discharge the patient will continue with aspirin 81 mg daily, Plavix 25 mg daily, folic acid 1 mg daily, and Lipitor 80 mg daily. Home health and physical therapy will be arranged at the assisted living facility where she is from. Recommend follow-up with neurology within 1 to 2 weeks to follow his hospitalization and continue her care. Recommend follow-up with her PCP in 1 week to follow-up this hospitalization. Education on TIA will be provided. Fall precautions in place. Patient with hypertension. Patient stable on Norvasc. At discharge we will continue with Norvasc 5 mg daily. Recommend to maintain blood pressure less than 130/80. Further adjustment can be done by her PCP. Patient with hyperlipidemia. At discharge we will continue with Lipitor 80 mg daily. Recommend to recheck fasting lipid panel in 6 to 8 weeks to monitor progress. Further adjustment can be done by her PCP. Diet: AHA Activity: Fall precautions Followup: Herrera Johnson MD [Primary Care Provider] - Time spent managing pt's care (in minutes): 55
[2020-08-30] MEDS ORDERED: LORazepam 2 MG/ML VIAL IV PRN (06:53)
[2020-08-30] MEDS ORDERED: POTASSIUM 25 MEQ EFFERV TAB PO ONE (09:00)
[2020-08-30] MEDS: ENOXAPARIN 40 MG/0.4 ML SQ SCH (09:16)
[2020-08-30] MEDS: THIAMINE HCL 100 MG TABLET PO SCH (09:16)
[2020-08-30] MEDS: ASPIRIN EC 81 MG TAB PO SCH (09:16)
[2020-08-30] MEDS: CLOPIDOGREL 75 MG TABLET PO SCH (09:16)
[2020-08-30] MEDS: FOLIC ACID 1 MG TABLET PO SCH (09:16)
[2020-08-30] MEDS: AMLODIPINE 5 MG TAB PO SCH (09:16)
--- NOTE | 2020-08-30 09:46 | RAD REPORT ---
EXAM DESCRIPTION: MRI - MRA Head Wo Cont - 08/30/2020 9:04 am CLINICAL HISTORY: TIA, HTN, Aphasia COMPARISON: Brain W/Wo Cont dated 08/30/2020 FINDINGS: The anterior circulation is intact. The bilateral middle cerebral arteries and anterior ce rebral arteries are patent. There is a moderate to severe focal stenosis of the right P1 segment of t he posterior cerebral artery. The left posterior cerebral artery is patent. No aneurysm is seen. No l arge vessel occlusion. Remote right occipital lobe insult. IMPRESSION: Moderate to severe stenosis of the right P1 segment of the posterior cerebral artery. Th e anterior circulation is widely patent.
--- NOTE | 2020-08-30 09:54 | RAD REPORT ---
EXAM DESCRIPTION: MRI - MRA Neck W/Wo Cont - 08/30/2020 9:05 am CLINICAL HISTORY: TIA,HTN,APHASIA COMPARISON: Carotid Artery Bilateral dated 08/28/2020 FINDINGS: Widely patent bilateral carotid systems as well as the vertebral arteries. No stenoses are identified. No evidence of a vascular dissection. IMPRESSION: Unremarkable MRA of the neck.
[2020-08-30 10:26] VITALS: O2SAT 97
--- NOTE | 2020-08-30 10:59 | RAD REPORT ---
EXAM DESCRIPTION: MRI - Brain W/Wo Cont - 08/30/2020 9:05 am CLINICAL HISTORY: TIA,HTN,APHASIA COMPARISON: MRA Head Wo Cont dated 08/30/2020; Head angio dated 08/28/2020 FINDINGS: Advanced T2/FLAIR hyperintense signal throughout the centrum semiovale and titus radiata. Encephalomalacia in the right occipital lobe. Changes of prior right occipital craniotomy. No acute infarct identified. No mass effect or midline shift. No abnormal enhancement. No mastoid effusion. Ce rebral atrophy. IMPRESSION: No acute intracranial abnormality. No evidence of acute infarct or abnormal enhancement.
[2020-08-30 16:04] VITALS: BP 124/60; TEMP 97.8
--- NOTE | 2020-08-31 08:10 | ECHO ---
HEIGHT: 5 ft 6 in WEIGHT: 159 lb 11.2 oz DATE OF STUDY: 08/30/[address]: Tomas Aguirre DO 2-DIMENSIONAL: YES M.MODE: YES DOPPLER: YES COLOR FLOW: YES TDS: NO PORTABLE: NO DEFINITY: NO BUBBLE STUDY: NO DIAGNOSIS: TRANISENT ISCHEMIC ATTACK, HYPERTENSION CARDIAC HISTORY: CATHERIZATION: NO SURGERY: NO PROSTHETIC VALVE: NO PACEMAKER: NO MEASUREMENTS (cm) DIASTOLIC (NORMALS) SYSTOLIC (NORMALS) IVSd 1.0 (0.6-1.2) LA Diam 2.5 (1.9-4.0) LVEF 62% LVIDd 3.0 (3.5-5.7) LVIDs 2.1 (2.0-3.5) %FS 32% LVPWd 1.1 (0.6-1.2) Ao Diam 2.3 (2.0-3.7) 2 DIMENSIONAL ASSESSMENT: RIGHT ATRIUM: NORMAL LEFT ATRIUM: NORMAL RIGHT VENTRICLE: NORMAL LEFT VENTRICLE: NORMAL TRICUSPID VALVE: NORMAL MITRAL VALVE: NORMAL PULMONIC VALVE: NORMAL AORTIC VALVE: NORMAL PERICARDIAL EFFUSION: SMALL AORTIC ROOT: NORMAL LEFT VENTRICULAR WALL MOTION: NORMAL DOPPLER/COLOR FLOW: NORMAL COMMENTS: NORMAL LEFT VENTRICULAR EJECTION FRACTION 55-60%. NORMAL WALL MOTION. TRACE TO SMALL PERICARDIAL EFFUSION. TECHNOLOGIST: Valeria SORENSEN
== END 2020-08-30 16:25 | disposition home health service (06) | DRG 69 ==
LOC: ER 09:28 → ERHOLD 14:22 → 2ND 17:08
PROVIDERS: ADMIT Family Medicine; ATTEND Family Medicine
DX: G45.9 Transient cerebral ischemic attack, unspecified (principal); R47.01 Aphasia; C71.9 Malignant neoplasm of brain, unspecified; I10 Essential (primary) hypertension; E78.5 Hyperlipidemia, unspecified; I66.9 Occlusion and stenosis of unspecified cerebral artery; F32.9 Major depressive disorder, single episode, unspecified; F03.90 Unspecified dementia, unspecified severity, without behavioral disturbance, psychotic disturbance, mood disturbance, and anxiety; Z88.5 Allergy status to narcotic agent; Z66 Do not resuscitate; Z85.841 Personal history of malignant neoplasm of brain; Z79.82 Long term (current) use of aspirin; Z79.02 Long term (current) use of antithrombotics/antiplatelets; Z79.899 Other long term (current) drug therapy; Z20.822 Contact with and (suspected) exposure to COVID-19
CPT/HCPCS: 36415; 70450; 70496; 70544; 70549; 70553; 71045; 80048; 80061; 81003; 83735; 84439; 84443; 85025; 85610; 85730; 93005; 93306; 93880; 96361; 96374; 96375; 97112; 97116; 97161; 97165; 97530; 99285; A9577; J1650; J2405; J7040; J7799; U0003

== ENCOUNTER 2020-08-30 17:51 | Emergency (ER) | payer OTHER ==
--- OUTSIDE RECORDS SUMMARY | 2020-08-30 17:54 | XMS REPORT | Continuity of Care Document ---
:1955 Author Organization [facility] t Address [address] [place] [address] Care Team Providers Name Role Phone Luis [...] Memoria DIARRHEA; 03-16 09:32:00 l NAUSEA; 00:00: [place] VOMITING; DYSPHAGIA; 00 RECTAL DIARRHEA; BLEEDING NAUSEA; VOMITING; RECTAL BLEEDING Active 01/13/2011 [facility] Malignant Problem Resolve 2020-07-24 M emoria neoplasm d 21:36:53 l of brain [place] (disorder) Malignant neoplasm of brain (disorder) Resolved [...] n Hyperlipid emia (disorder) [facility] Active 2020-07-24 M emoria ve 21:36:53 l disorder, [place] systemic Hypertensi arterial ve (disorder) disorder, systemic arterial (disorder) Active Problem [facility]2020 [facility] Allergies, Adverse Reactions, Alerts Allergy Allergy Status Severity Reaction(s) Onset Inactive Treating Comm ents Source Name Type Date Date Clinician codeine codeine Active Memoria sulfate sulfate l [place] Social History Social Habit Start Date Stop Date Quantity Comments Source Sex Assigned At [facility] Social History 2020-06-10 2020-06-10 Gaby jones 20:42:43 20:42:43 Smoking Status Start Date Stop Date Source Never smoker [facility] Medications Ordered Filled Start Stop Current Ordering Indication Dosage Frequency Signature Comments Components Source Medication Medication Date Date Medication? Clinician (SIG) Name Name Melatonin Yes 5 mg, Memoria Gummies 5-19 CHEW, l 13:35: Bedtime, 2 [place] 00 Gummies by mouth at betime, 0 Refill(s) Loratadine Yes 10 mg = 1 Me moria 10 MG Oral 5-19 tab, PO, l Tablet 13:35: Daily, # [place] 00 30 tab, 1 Refill(s) memantine Yes 14 mg, PO, Me moria 14 mg oral 4-29 Daily, # l capsule, 23:15: 30 cap, 2 Herm darin Refill(s), release Pharmacy: [id number], 167.64, cm, 06/10/20 14:53:00 CDT, Height, 75, [...] MG tablet 17:55: daily. Medica l [address] simvastatin Yes 40mg QD Take 40 mg [...] Luke s - MG tablet 17:55: nightly. [address] aspirin 81 2019-0 Yes 81mg QD Take [address] MG EC 9-16 by [facility] - tablet 17:55: daily. [address] citalopram Yes 20mg QD Take [address] (CELEXA) 20 9-16 by mouth [facility] - MG tablet 17:55: [facility] [address] Vital Signs Vital Name Observation Time Observation Value Comments Source Systolic (mm Hg) 2020-06-10 19:53:00 Satnam rial [place]za Diastolic (mm Hg) 2020-06-10 19:53:00 [facility] orial Reza Heart Rate 2020-06-10 19:53:00 [facility] Respitory Rate 2020-06-10 19:53:00 [facility] Height 2020-06-10 19:53:00 167.64 cm [facility] Weight 2020-06-10 19:53:00 [facility] BMI Calculated 2020-06-10 19:53:00 [facility] [place] Height 2011-01-19 16:42:00 170.18 cm [facility] Weight 2011-01-19 16:42:00 [facility] Procedures Procedure Date / Time Performed Performing Clinician Sourc e Cholecystectomy [facility] Plan of Care Planned Activity Planned Date Details Comments Source Future Scheduled 2019-10-14 INFLUENZA VACCINE (#1) [facility] 00:[facility]:00 [code = INFLUENZA Medical Ce nter VACCINE (#1)] Future Scheduled 2019 PNEUMOCOCCAL 65+ YRS [facility] - Test 00:00:00 (1 of 1 - [facility] [id number]) [code = PNEUMOCOCCAL 65+ YRS (1 of 1 - [id number] PCV13)] Future Scheduled 2016-02-[address] [facility] [facility] - Test 00:00:00 WELLNESS (YEAR 2 or [facility] Center FIRST YEAR if no IPPE) [code = MEDICARE ANNUAL WELLNESS (YEAR 2 or FIRST YEAR if no IPPE)] Future Scheduled [address] [facility] Test 00:00:00 (procedure) [code = [facility] 58333956] Future Scheduled [address] - Test 00:00:00 malignant neoplasm of [facility] cervix (procedure) [code = 433361435] Future Scheduled [address] [facility] - Test 00:00:00 malignant neoplasm of [facility] breast (procedure) [code = 465813176] Future Scheduled [address] [facility] - Test 00:00:00 malignant neoplasm of [facility] colon (procedure) [code = 675590945] Encounters Start End Encounter Admission Attending Care Care Encounter Source Date/Time Date/Time Type Type Clinicians Facility Department ID 2020-07-22 2020-07-22 [id number] 11:00:00 11:00:00 Mauro 02 [facility] 2020-06-15 2020-06-15 Outpatient [facility] [id number] 10:00:00 23:59:59 Mauro 01 [facility] 2020-06-10 2020-06-10 Out[address] Gr[id number] 14:15:00 23:59:59 Mauro 00 [facility] 2019-08-29 2019-10-13 Office [facility] [id number] 13:39:36 09:08:33 Visit Marisabel Cornejo [id number] [place] [id number] [facility] [id number] nal 059 [facility] 2019-10-13 2019-10-13 Telephone [facility] [id number] 00:00:00 00:00:00 Marisabel Cornejo [id number] [place] [id number] [facility] [id number] [facility] 059 [facility] Results Test Description Test Time Test Comments Results Result Comments Source B-TYPE NATRIURETIC FACTOR (BNP) 2018-10-27 20:28:00 Test Item Value Reference Range Interpretation Comme nts B-TYPE NATRIURETIC PEPTIDE (BEAKER) (test code = 700) 35 pg/mL 0-100 TROPONIN [id number] 20:28:00 Test Item Value Reference Range Interpretation [...] failure, acidosis, acute neurological disease, and persistent tachyarrhythmia.[id number] 20:26:00 Test Item Value Reference Range Interpretation [...] within 95-100% range.RAD, CHEST, 1 VIEW, NON [id number] 20:22:00Reason for exam:->SOBShould this be performed at the bedside?->YesFINAL REPORT INDICATION: SOB COMPARISON: None TECHNIQUE: Single frontal view of the chest. FINDINGS: Lungs and pleura: Mild bibasilar subsegmental atelectasis. No airspace consoli dation. No effusion.Heart and mediastinum: Normal heart size. Unremarkable mediastinal contours.Osseous structures: No acute abnormality.Other: None. IMPRESSION: No active intrathoracic abnormality. Signed: Mo Pollard [facility] Verified Date/Time: 10/27/2018 20:22:18 Reading Location: [address] Neuro Reading Room BASI [employer]IC [id number] 20:20:00 Test Item Value Reference Range Interpretation [...] PATIEN TS. CBC W/PLT COUNT & AUTO [id number] 20:08:00 Test Item Value Reference Range Interpretation [...] (test code = 2801) CT, BRAIN, WITHOUT [id number] 20:08:00Reason for exam:->h/o glioWhat is the patient's [...] further evaluation as clinically indicated. Signed: Ras Polanco [facility] Verified Date/Time: 10/27/2018 20:08:37
--- NOTE | 2020-08-30 18:55 | RAD REPORT ---
EXAM DESCRIPTION: CT - Head Brain Wo Cont - 08/30/2020 6:47 pm CLINICAL HISTORY: PAIN Headache, drowsiness COMPARISON: Head angio dated 08/28/2020; Ct Stroke Brain Wo Cont dated 08/28/2020; Brain W/Wo Cont arvin ed 08/30/2020; MRA Neck W/Wo Cont dated 08/30/2020; MRA Head Wo Cont dated 08/30/2020 TECHNIQUE: All CT scans are performed using dose optimization technique as appropriate and may inclu de automated exposure control or mA/KV adjustment according to patient size. FINDINGS: No intracranial hemorrhage, hydrocephalus or extra-axial fluid collection.Gliosis is seen in the right PROCESS CHEMIST distribution compatible with old infarction. Acrv-kq-[id number] periventricular and de ep white matter chronic microvascular ischemic changes.No areas of brain edema or evidence of midline shift. The paranasal sinuses and mastoids are clear. The calvarium is intact. IMPRESSION: No acute intracranial abnormality.
--- NOTE | 2020-08-30 19:07 | EDPHYS ---
Physician Documentation [facility] Name: Dai Trujillo Age: 65 yrs Sex: Female : 1955 Arrival Date: 08/30/2020 Time: 18:09 Bed 5 Private MD: ED Physician Devendra Melton HPI: 08/30 19:00 This 65 yrs old Female presents to ER via EMS with complaints of Fall Injury. jr8 19:00 Onset: The symptoms/episode began/occurred acutely, today. Associated injuries: The jr8 patient sustained injury to the head, laceration, 2.5 cm(s), of the back of head. Severity of symptoms: At their worst the symptoms were mild, in the emergency department the symptoms are unchanged. It is unknown whether or not the patient has had similar symptoms in the past. The patient has been recently been admitted at [facility]. Patient had fell backwards today. Could not tell us a lot about the history of the fall due to dementia with short term memory loss. Was recently seen here for stroke like symptoms and admitted two days ago. Patient currently without pain . Historical: - Allergies: 18:17 Codeine; jl7 - Home Meds: 18:17 amlodipine 5 mg tab [Active]; aspirin 81 mg Oral TbEC 1 tab once daily [Active]; jl7 citalopram 20 mg tab 1 tab once daily [Active]; meloxicam 7.5 mg oral tab [Active]; memantine 14 mg oral CSpX 1 cap once daily [Active]; simvastatin 40 mg Oral tab 1 tab once daily [Active]; - PMHx: 18:17 Alzheimers; Arthritis; brain cancer; Dementia; TIA; Hypertensive disorder; jl7 hyperlipidemia; Depressive disorder; Glaucoma; - Immunization history: Last tetanus immunization: unknown. - Social history:: Smoking status: Patient denies any tobacco usage or history of. ROS: 19:00 Eyes: Negative for injury, pain, redness, and discharge, ENT: Negative for injury, jr8 pain, and discharge, Neck: Negative for injury, pain, and swelling, Cardiovascular: Negative for chest pain, palpitations, and edema, Respiratory: Negative for shortness of breath, cough, wheezing, and pleuritic chest pain, Abdomen/GI: Negative for abdominal pain, nausea, vomiting, diarrhea, and constipation, Back: Negative for injury and pain, MS/Extremity: Negative for injury and deformity, Neuro: Negative for headache, weakness, numbness, tingling, and seizure. 19:00 Skin: Positive for laceration(s), of the scalp. Exam: 19:00 Constitutional: This is a well developed, well nourished patient who is awake, alert, jr8 and in no acute distress. Eyes: Pupils equal round and reactive to light, extra-ocular motions intact. Lids and lashes normal. Conjunctiva and sclera are non-icteric and not injected. Cornea within normal limits. Periorbital areas with no swelling, redness, or edema. ENT: Nares patent. No nasal discharge, no septal abnormalities noted. Tympanic membranes are normal and external auditory canals are clear. Oropharynx with no redness, swelling, or masses, exudates, or evidence of obstruction, uvula midline. Mucous membranes moist. Neck: Trachea midline, no thyromegaly or masses palpated, and no cervical lymphadenopathy. Supple, full range of motion without nuchal rigidity, or vertebral point tenderness. No Meningismus. Chest/axilla: Normal chest wall appearance and motion. Nontender with no deformity. No lesions are appreciated. Cardiovascular: Regular rate and rhythm with a normal S1 and S2. No gallops, murmurs, or rubs. Normal PMI, no JVD. No pulse deficits. Respiratory: Lungs have equal breath sounds bilaterally, clear to auscultation and percussion. No rales, rhonchi or wheezes noted. No increased work of breathing, no retractions or nasal flaring. Abdomen/GI: Soft, non-tender, with normal bowel sounds. No distension or tympany. No guarding or rebound. No evidence of tenderness throughout. Back: No spinal tenderness. No costovertebral tenderness. Full range of motion. Skin: Warm, dry with normal turgor. Normal color with no rashes, no lesions, and no evidence of cellulitis. MS/ Extremity: Pulses equal, no cyanosis. Neurovascular intact. Full, normal range of motion. Neuro: Awake and alert, GCS 15, oriented to person, place, time, and situation. Cranial nerves II-XII grossly intact. Motor strength 5/5 in all extremities. Sensory grossly intact. 19:00 Head/face: Noted is a laceration(s), that is superficial, 2.5 cm(s), of the back of head. Vital Signs: 18:09 BP 128 / 66; Pulse 63; Resp 15; Temp 97.6; Pulse Ox 95% ; Weight 68.04 kg; Pain 2/10; jl7 19:42 BP 158 / 70; Pulse 66; Resp 16 S; Pulse Ox 94% on R/A; ad5 [place] Coma Score: 18:09 Eye Response: spontaneous(4). Verbal Response: oriented(5). Motor Response: obeys jl7 commands(6). Total: 15. Trauma Score (Adult): 18:09 Eye Response: spontaneous(1); Verbal Response: oriented(1); Motor Response: obeys jl7 commands(2); Systolic BP: > 89 mm Hg(4); Respiratory Rate: 10 to 29 per min(4); Nicholas Score: 15; Trauma Score: 12 MDM: 18:32 Patient medically screened. jr8 19:00 Data reviewed: vital signs, nurses notes, old medical records, radiologic studies, CT jr8 scan. Data interpreted: Pulse oximetry: on room air is 95 %. Interpretation: normal. Counseling: I had a detailed discussion with the patient and/or guardian regarding: the historical points, exam findings, and any diagnostic results supporting the discharge/admit diagnosis, radiology results, the need for outpatient follow up, a family practitioner, to return to the emergency department if symptoms worsen or persist or if there are any questions or concerns that arise at home. ED course: Patient at baseline. Hemodynamically stable. ECG normal. Will d/c home to f/u with PCP as CT was negative . 08/30 18:34 Order name: CT Head Brain wo Cont; Complete Time: 19:00 jr8 Administered Medications: No medications were administered Disposition: 08/31 07:06 Co-signature as Attending Physician, Devendra Melton MD I agree with the assessment and kdr plan of care. Disposition Summary: 08/30/20 19:06 Discharge Ordered Location: Home [facility] Problem: new jr8 Symptoms: have improved jr8 Condition: Stable jr8 Diagnosis - Superficial injury of scalp jr8 Followup: jr8 - With: Private Physician - When: 1 - 2 days - Reason: Recheck today's complaints, Continuance of care, Re-evaluation by your physician Discharge Instructions: - Discharge Summary Sheet jr8 - Nonsutured Laceration Care jr8 Forms: - Medication Reconciliation Form jr8 - Thank You Letter jr8 - Antibiotic Education jr8 - Prescription Opioid Use jr8 Signatures: Dispatcher [employer] Devendra Sigala MD MD kdr Roszak, Josh, PA PA jr8 Jasvir Latham RN RN jl7
--- NOTE | 2020-08-30 19:07 | ER ---
Nurse's Notes [facility] Name: Dai Trujillo Age: 65 yrs Sex: Female : 1955 Arrival Date: 08/30/2020 Time: 18:09 Bed 5 Private MD: Diagnosis: Superficial injury of scalp Presentation: 08/30 18:09 Chief complaint: EMS states: Toned out for fall, faculty found pt on floor, pt has jl7 short term memory loss and dementia and does not remember falling, does not take blood thinners, unknown loss of consciousness, small lac to posterior scalp. Care prior to arrival: None. Mechanism of Injury: Fall from standing position. Trauma event details: Injury occurred in the [facility], Injury occurred: at home. Injury occurred: August 30, 2020. 18:09 Acuity: STEFAN 3 jl7 18:09 Method Of Arrival: EMS: [facility] jl7 18:16 Coronavirus screen: Client denies travel out of the [place] in the last 14 days. At this jl7 time, the client does not indicate any symptoms associated with coronavirus-19. Ebola Screen: No symptoms or risks identified at this time. Initial Sepsis Screen: Does the patient meet any 2 criteria? No. Patient's initial sepsis screen is negative. Does the patient have a suspected source of infection? No. Patient's initial sepsis screen is negative. Risk Assessment: Do you want to hurt yourself or someone else? Patient reports no desire to harm self or others. Onset of symptoms was August 30, 2020. Transition of care: [facility]. Trauma Activation: Not Applicable Physician: ED Physician; Name: ; Notified At: ; Arrived At: Physician: General Surgeon; Name: ; Notified At: ; Arrived At: Physician: Radiology; Name: ; Notified At: ; Arrived At: Physician: Respiratory; Name: ; Notified At: ; Arrived At: Physician: Lab; Name: ; Notified At: ; Arrived At: Historical: - Allergies: 18:17 Codeine; jl7 - Home Meds: 18:17 amlodipine 5 mg tab [Active]; aspirin 81 mg Oral TbEC 1 tab once daily [Active]; jl7 citalopram 20 mg tab 1 tab once daily [Active]; meloxicam 7.5 mg oral tab [Active]; memantine 14 mg oral CSpX 1 cap once daily [Active]; simvastatin 40 mg Oral tab 1 tab once daily [Active]; - PMHx: 18:17 Alzheimers; Arthritis; brain cancer; Dementia; TIA; Hypertensive disorder; jl7 hyperlipidemia; Depressive disorder; Glaucoma; - Immunization history: Last tetanus immunization: unknown. - Social history:: Smoking status: Patient denies any tobacco usage or history of. Screenin:09 Abuse screen: Denies threats or abuse. Denies injuries from another. Tuberculosis jl7 screening: No symptoms or risk factors identified. 18:20 Nutritional screening: No deficits noted. Fall Risk jl7 Primary Survey: 18:09 NO uncontrolled hemorrhage observed. Breathing/Chest: Respiratory pattern: regular, jl7 Respiratory effort: spontaneous, unlabored, Breath sounds: clear, bilaterally. Chest inspection: symmetrical rise and fall of the chest. Circulation: Cardiac rhythm: sinus rhythm Heart tones present. Skin color: pink, Skin temperature: warm. Disability Alert. Exposure/Environment: Obvious injury(ies) are noted at this time: small laceration to posterior scalp. Assessment: 18:09 General: Appears in no apparent distress. uncomfortable, Behavior is calm, cooperative, jl7 appropriate for age. Pain: Complains of pain in scalp Pain currently is 2 out of 10 on a pain scale. Neuro: Level of Consciousness is awake, alert, obeys commands, Oriented to person, place, time, situation. Cardiovascular: Denies chest pain, Patient's skin is warm and dry. Respiratory: Airway is patent Respiratory effort is even, unlabored, Respiratory pattern is regular, symmetrical, Denies shortness of breath. Derm: Skin is pink, warm \T\ dry. 19:11 Reassessment: Daughter Landry on her way to transport pt back to [facility]. jl7 19:41 Reassessment: Patient and/or family updated on plan of care and expected duration. Pain ad5 level reassessed. Pt repositioned for comfort, given ice water per request. Awaiting transport back to [facility], NAD noted, will continue to monitor. Vital Signs: 18:09 BP 128 / 66; Pulse 63; Resp 15; Temp 97.6; Pulse Ox 95% ; Weight 68.04 kg; Pain 2/10; jl7 19:42 BP 158 / 70; Pulse 66; Resp 16 S; Pulse Ox 94% on R/A; ad5 Nicholas Coma Score: 18:09 Eye Response: spontaneous(4). Verbal Response: oriented(5). Motor Response: obeys jl7 commands(6). Total: 15. Trauma Score (Adult): 18:09 Eye Response: spontaneous(1); Verbal Response: oriented(1); Motor Response: obeys jl7 commands(2); Systolic BP: > 89 mm Hg(4); Respiratory Rate: 10 to 29 per min(4); Nicholas Score: 15; Trauma Score: 12 ED Course: 18:09 Patient arrived in ED. jl7 18:09 Patient has correct armband on for positive identification. Bed in low position. Call jl7 light in reach. Side rails up X2. 18:09 Patient maintains SpO2 saturation greater than 95% on room air. Thermoregulation: warm jl7 blanket given to patient. 18:13 Triage completed. jl7 18:17 Arm band placed on right wrist. jl7 18:20 Nickolsa Rice PA is PHCP. 8 18:20 Devendra Melton MD is Attending Physician. 8 18:20 cotton acreage measurer on. Pulse ox on. NIBP on. Warm blanket given. jl7 18:20 EKG done, by ED staff, reviewed by Nickolas ZAVALETA. jl7 18:33 EKG done, by ED staff, reviewed by Devendra Melton MD. 5 18:47 CT Head Brain wo Cont In Process Unspecified. EDMS 18:58 Jasvir Latham RN is Primary Nurse. 7 19:12 No provider procedures requiring assistance completed. Patient did not have IV access jl7 during this emergency room visit. Administered Medications: No medications were administered Outcome: 19:06 Discharge ordered by . clementine 20:07 Discharged to ad5 20:07 Discharged to home via wheelchair, with family. 20:07 Condition: stable 20:07 Discharge instructions given to patient, family, Instructed on discharge instructions, follow up and referral plans. Demonstrated understanding of instructions, follow-up care. 20:07 Patient left the ED. ad5 Signatures: Dispatcher [employer] EDMS Nickolas Rice PA PA 8 Joyce Solis 5 Jasvir Latham, IAN RN jl7 Kaleb Ayala ad5
[2020-08-30 20:39] VITALS: TEMP 97.6
[2020-08-30 20:41] VITALS: BP 158/70; O2SAT 94
--- NOTE | 2020-08-31 11:47 | EKG ---
Test Date: 2020-08-30 Test Time: 18:13:17 Mechanical Spreader Operator: DONTAE MEASUREMENT RESULTS: Intervals: Rate: 62 CO: 142 QRSD: 82 QT: 454 QTc: 460 [place]: P: 68 CO: 142 QRS: 43 T: 104 INTERPRETIVE STATEMENTS: Normal sinus rhythm T wave abnormality, consider anterior ischemia Abnormal ECG Compared to ECG 08/28/2020 10:00:02 Sinus bradycardia no longer present Myocardial infarct finding no longer present T-wave abnormality still present Possible ischemia still present Electronically Signed On 08-31-20 11:46:12 CDT by Krishna Villela
== END 2020-08-30 20:07 | disposition home or self-care (01) ==
LOC: ER 17:51
DX: S01.01XA Laceration without foreign body of scalp, initial encounter (principal); W18.30XA Fall on same level, unspecified, initial encounter; G30.9 Alzheimer's disease, unspecified; F02.80 Dementia in other diseases classified elsewhere, unspecified severity, without behavioral disturbance, psychotic disturbance, mood disturbance, and anxiety; I10 Essential (primary) hypertension; Z88.5 Allergy status to narcotic agent; Z85.841 Personal history of malignant neoplasm of brain; Z79.82 Long term (current) use of aspirin
CPT/HCPCS: 70450; 93005; 99285

== ENCOUNTER 2020-09-24 17:50 | Emergency (ER) | payer OTHER ==
--- OUTSIDE RECORDS SUMMARY | 2020-09-24 17:53 | XMS REPORT | Continuity of Care Document ---
:1955 Author Organization [facility] t Address [address] [place] [address] Care Team Providers Name Role Phone Luis Antonio Perez Primary Care Physician Bon Graysno Attending Clinician Emre REVELES, K.H. Attending Clinician [...] BLEEDING NAUSEA; VOMITING; RECTAL BLEEDING Active 01/13/2011 [facility] Malignant Problem Resolve 2020-07-24 M emoria neoplasm d 21:36:53 l of brain [place] (disorder) Malignant neoplasm of brain (disorder) Resolved Problem 07/24/2020 [facility] Dyskinesia Problem Active 2020-07-24 M emoria (finding) 21:36:53 l [place] Dyskinesia (finding) Active Problem 07/24/2020 [facility] [...] n Hyperlipid emia (disorder) Active Problem 07/24/2020 [facility] Hypertensi Problem Active 2020-07-24 M emoria ve 21:36:53 l disorder, [place] systemic Hypertensi arterial ve (disorder) disorder, systemic arterial (disorder) Active Problem 07/24/2020 [facility] Allergies, Adverse Reactions, Alerts Allergy Allergy Status Severity Reaction(s) Onset Inactive Treating Comm ents Source Name Type Date Date Clinician codeine codeine Active Memoria sulfate sulfate l [place] Social History Social Habit Start Date Stop Date Quantity Comments Source Sex Assigned At [facility] Social History 2020-06-10 2020-06-10 Gaby jones 20:42:43 20:42:43 Smoking Status Start Date Stop Date Source Never smoker [facility] Medications Ordered Filled Start Stop Current Ordering Indication Dosage Frequency Signature Comments Components Source Medication Medication Date Date Medication? Clinician (SIG) Name Name Melatonin Yes 5 mg, Memoria Gummies 5-19 CHEW, l 13:35: Bedtime, 2 Reza 00 Gummies by mouth at betime, 0 Refill(s) Loratadine Yes 10 mg = 1 Me moria 10 MG Oral 5-19 tab, PO, l Tablet 13:35: Daily, # [place] 00 30 tab, 1 Refill(s) memantine Yes 14 mg, PO, Me moria 14 mg oral 4-29 Daily, # l capsule, 23:15: 30 cap, 2 Herm darin Refill(s), release Pharmacy: [id number], 167.64, cm, 06/10/20 14:53:00 CDT, Height, 75, [...] emoria 06-10 Daily, 0 l 19:57: Refill(s) citalopram Yes 20mg QD Take [address] (CELEXA) 20 9-16 by mouth Luke s - MG tablet 17:55: daily. [facility] [address] [place] amLODIPine Yes 5mg QD Take [address] (NORVASC) 5 9-16 by mouth Luke s - MG tablet 17:55: daily. [facility] [address] [place] simvastatin Yes 40mg QD Take [address] [facility] (ZOCOR) 40 9-16 by [facility] - MG tablet 17:55: nightly. [facility] carlotta [address] [place] meloxicam Yes 7.5mg Take 7.[address] [facility] (MOBIC) 7.5 9-16 mg by [facility] - MG tablet 17:55: mouth 2 Medic al 52 (two) Center times daily as needed for Pain. pantoprazol Yes 40mg QD Take [address] [facility] e 9-16 by mouth [facility] - (PROTONIX) 17:55: daily. Medic al 40 MG 52 Center tablet donepezil 2019-0 Yes 5mg QD Take [address] (ARICEPT) 5 9-16 by mouth Luke s - MG tablet 17:55: nightly. Medi carlotta 52 Center aspirin 81 2019-0 Yes 81mg QD Take [address] MG EC 9-16 by mouth [facility] - tablet 17:55: daily. [address] Vital Signs Vital Name Observation Time Observation Value Comments Source Systolic (mm Hg) 2020-06-10 19:53:00 Satnam rial [place] Diastolic (mm Hg) 2020-06-10 19:53:00 [facility] [place] [facility] orial Reza Heart Rate 2020-06-10 19:53:00 [facility] Respitory Rate 2020-06-10 19:53:00 [facility] [place] [facility] Height 2020-06-10 19:53:00 167.64 cm [facility] Weight 2020-06-10 19:53:00 [facility] BMI Calculated 2020-06-10 19:53:00 Memori al Reza Height 2011-01-19 16:42:00 170.18 cm [facility] Weight 2011-01-19 16:42:00 [facility] Procedures Procedure Date / Time Performed Performing Clinician Sourc e Cholecystectomy [facility] Plan of Care Planned Activity Planned Date Details Comments Source Future Scheduled 2019-10-14 INFLUENZA VACCINE (#1) [facility] 00:00:00 [code = INFLUENZA Medical Ce nter VACCINE (#1)] Future Scheduled 2019 PNEUMOCOCCAL 65+ YRS [facility] - Test 00:00:00 (1 of 1 - [facility] Center [id number] PCV13) [code = PNEUMOCOCCAL 65+ YRS (1 of 1 - [id number] PCV13)] Future Scheduled 2016-02-[address] [facility] [facility] - Test 00:00:00 WELLNESS (YEAR 2 or Medical Center FIRST YEAR if no IPPE) [code = MEDICARE ANNUAL WELLNESS (YEAR 2 or FIRST YEAR if no IPPE)] Future Scheduled [address] Test 00:00:00 (procedure) [code = Medical Center 26186958] Future Scheduled [address] [facility] - Test 00:00:00 malignant neoplasm of Medica [facility] Center cervix (procedure) [code = 793354457] Future Scheduled [address] [facility] - Test 00:00:[address] [facility] colon (procedure) [code = 172519269] Future Scheduled [address] [facility] - Test 00:00:[address] [facility] [facility] breast (procedure) [code = 186378403] Encounters Start End Encounter Admission Attending Care Care Encounter Source Date/Time Date/Time Type Type Clinicians Facility Department ID 2020-07-22 2020-07-22 Ambulatory nullFlavo MNA [id number] Memoria 16:00:00 16:00:00 Pre-Reg r Neurology 02 sudhir [place] Reza 2020-07-22 2020-07-22 Outpatient MHIE MHIE [id number] Memoria 11:00:00 11:00:00 02 sudhir [place] 2020-07-22 2020-07-22 Outpatient JERONIMO Grayson MISCHER [id number] 11:00:00 11:00:00 Mauro 02 Bon 2020-06-15 2020-06-16 Outpatient nullFlavo MNA [id number] Memoria 15:00:00 04:59:59 r Neurology 01 sudhir Cobb 2020-06-15 2020-06-15 Outpatient JERONIMO GraysonMISCHER [id number] 10:00:00 23:59:59 Mauro 01 Bon 2020-06-15 2020-06-15 Outpatient MHIE NORBERTOIE [id number] Memoria 10:00:00 10:00:00 01 sudhir Cobb 2020-06-10 2020-06-11 Outpatient nullFlavo MNA [id number] Memoria 19:15:00 04:59:59 r Neurology 00 sudhir Aisha Cobb 2020-06-10 2020-06-10 Outpatient JERONIMO GraysonMISCHER [id number] 14:15:00 23:59:59 Mauro 00 Bon 2020-06-10 2020-06-10 Outpatient MHIE MHIE [id number] Memoria 14:15:00 14:15:00 00 sudhir Cobb 2019-08-29 2019-10-13 Office Emre [facility] [id number] 13:39:36 09:08:33 Visit Marisabel Cornejo [id number] [place] [id number] Profsameerio [phone] [facility] 2019-10-13 2019-10-13 Shantanu Andrea [facility] [id number] 00:00:00 00:00:00 Sendroebrta Cornejo [id number] [place] [id number] Professio [id number] 2011-01-19 2011-01-19 BETTE nullFlavo [facility] [id number] Memoria 09:22:00 13:30:00 [facility] 00 l [place] Results Test Description Test Time Test Comments Results Result Comments Source B-TYPE NATRIURETIC FACTOR (BNP) 2018-10-27 20:28:00 Test Item Value Reference Range Interpretation Comme nts B-TYPE NATRIURETIC PEPTIDE (ROBINSON) (test code = 700) 35 pg/mL 0-100 TROPONIN [id number] 20:28:00 Test Item Value Reference Range Interpretation [...] failure, acidosis, acute neurological disease, and persistent tachyarrhythmia.[id number] 20:26:00 Test Item Value Reference Range Interpretation [...] within 95-100% range.RAD, CHEST, 1 VIEW, NON [id number] 20:22:00Reason for exam:->SOBShould this be performed at the bedside?->YesFINAL REPORT INDICATION: SOB COMPARISON: None TECHNIQUE: Single frontal view of the chest. FINDINGS: Lungs and pleura: Mild bibasilar subsegmental atelectasis. No airspace consoli dation. No effusion.Heart and mediastinum: Normal heart size. Unremarkable mediastinal contours.Osseous structures: No acute abnormality.Other: None. IMPRESSION: No active intrathoracic abnormality. Signed: Mo Pollard MDReport Verified Date/Time: 10/27/2018 20:22:18 Reading Location: [address] Neuro Reading Room BASIC METABOLIC [id number] 20:20:00 Test Item Value Reference Range Interpretation [...] PATIEN TS. CBC W/PLT COUNT & AUTO [id number] 20:08:00 Test Item Value Reference Range Interpretation [...] (test code = 2801) CT, BRAIN, WITHOUT [id number] 20:08:00Reason for exam:->h/o glioWhat is the patient's [...] evaluation as clinically indicated. Signed: Ras Polanco [facility] Verified Date/Time: 10/27/2018 20:08:37
--- NOTE | 2020-09-24 18:43 | RAD REPORT ---
EXAM DESCRIPTION: CT - Head C Spine Cap Wo Con - 09/24/2020 6:29 pm CLINICAL HISTORY: Trauma, head and neck injury. Chest, abdomen and pelvis pain. fall, head hematoma COMPARISON: Head Brain Wo Cont dated 08/30/2020 TECHNIQUE: CT head without contrast. CT cervical spine without contrast with coronal and sagittal reformatted images. CT chest, abdomen and pelvis without contrast with coronal and sagittal reformatted images of the spi ne. All CT scans are performed using dose optimization technique as appropriate and may include automated exposure control or mA/KV adjustment according to patient size. FINDINGS: CT HEAD WITHOUT CONTRAST: Right parietal scalp hematoma. Right occipital lobe encephalomalacia. Small volume of extra-axial blo od products along the right parietal lobe measuring 6 millimeters in maximal thickness. Cerebral atro phy with chronic small vessel ischemic changes. Regarding the hemorrhage, discussed with Guerrero Momin on 09/24/20. Prior right-sided craniotomy. The paranasal sinuses and mastoids are clear. The calvarium is intact. CT CERVICAL SPINE WITHOUT CONTRAST: No fracture or subluxation. The prevertebral soft tissues are normal in thickness.Multilevel cervica l spondylosis with varying degrees of neural foraminal narrowing. CT CHEST, ABDOMEN, PELVIS WITHOUT CONTRAST: NOTE: Lack of contrast is a significant limitation in the assessment of trauma related findings. Spec ifically, solid organ, vascular and bowel evaluation is significantly limited. The lungs are clear.No pneumothorax or pericardial/pleural fluid. Bilateral renal sinus cysts. No focal liver lesions present. Cholecystectomy. No free fluid. No bowel obstruction. Hysterectomy. No concerning pelvic findings. No fractures. Remote appearing left-sided rib fractures. IMPRESSION: 1. CT Head: Small volume of extra-axial blood along the right frontal lobe most likely r epresenting a small subdural hematoma. No overlying skull fracture though there is a large right brenda etal scalp hematoma. 2. No acute fracture or traumatic malalignment cervical spine. 3. No evidence of significant trauma to the chest, abdomen, or pelvis.
--- NOTE | 2020-09-24 18:52 | ER ---
Nurse's Notes [facility] Name: Dai Trujillo Age: 65 yrs Sex: Female : 1955 Arrival Date: 09/24/2020 Time: 18:17 Bed 30 Private MD: Diagnosis: Right Frontal Subdural Hematoma Presentation: 09/24 19:03 Chief complaint: EMS states: toned out to [facility] for fall. Noticeable hematoma to ld1 right side of head. Coronavirus screen: At this time, the client does not indicate any symptoms associated with coronavirus-19. Ebola Screen: No symptoms or risks identified at this time. Initial Sepsis Screen: Does the patient meet any 2 criteria? No. Patient's initial sepsis screen is negative. Does the patient have a suspected source of infection? No. Patient's initial sepsis screen is negative. Risk Assessment: Do you want to hurt yourself or someone else? Patient reports no desire to harm self or others. Onset of symptoms was September 24, 2020. 19:03 Method Of Arrival: EMS: [facility] ld1 19:03 Acuity: STEFAN 3 ld1 Triage Assessment: 19:05 General: Appears in no apparent distress. uncomfortable, Behavior is agitated, anxious, ld1 inappropriate for age. Pain: Complains of pain in top of head Pain does not radiate. Pain currently is 7 out of 10 on a pain scale. Quality of pain is described as throbbing, Pain began 1 hour ago. Is continuous. EENT: No signs and/or symptoms were reported regarding the EENT system. Neuro: Level of Consciousness is awake, confused, Oriented to none. Cardiovascular: Capillary refill < 3 seconds Patient's skin is warm and dry. Respiratory: Airway is patent Respiratory effort is even, unlabored, Respiratory pattern is regular, symmetrical. GI: Abdomen is flat, non-distended. : No signs and/or symptoms were reported regarding the genitourinary system. Derm: No signs and/or symptoms reported regarding the dermatologic system. Musculoskeletal: No signs and/or symptoms reported regarding the musculoskeletal system. Injury Description: Laceration sustained to face a small amount of bleeding noted at this time. Historical: - Allergies: 19:05 Codeine; ld1 - Home Meds: 19:05 amlodipine 5 mg tab [Active]; aspirin 81 mg Oral TbEC 1 tab once daily [Active]; ld1 citalopram 20 mg tab 1 tab once daily [Active]; meloxicam 7.5 mg Oral tab [Active]; memantine 14 mg Oral CSpX 1 cap once daily [Active]; simvastatin 40 mg Oral tab 1 tab once daily [Active]; - PMHx: 19:05 Alzheimers; Arthritis; brain cancer; Dementia; depressive disorder; Glaucoma; ld1 Hyperlipidemia; Hypertensive disorder; TIA; - Immunization history:: Adult Immunizations up to date. - Social history:: Smoking status: Patient denies any tobacco usage or history of. Screenin:08 Abuse screen: Denies threats or abuse. Denies injuries from another. Nutritional ld1 screening: No deficits noted. Tuberculosis screening: No symptoms or risk factors identified. Fall Risk Fall in past 12 months (25 points). Secondary diagnosis (15 points) Alzheimer's, Gait- Weak (10 pts.). Mental Status- Overestimates/Forgets Limitations (15 pts.). Total Taylor Fall Scale indicates High Risk Score (45 or more points). Fall prevention measures have been instituted. Side Rails Up X 2 Placed Close to Nursing Station Frequent Obs/Assessments Occuring Family Present and informed to notify staff if the need to leave the bedside As available patient and family educated on Fall Prevention Program and Strategies. Assessment: 19:08 Reassessment: See triage assessment. ld1 19:44 Reassessment: No changes from previously documented assessment. Patient and/or family ld1 updated on plan of care and expected duration. Pain level reassessed. Pt laying in bed. RR 17. Noticeable confusion, pt repeating same question multiple times. No signs of distress at this time. Vital Signs: 19:03 BP 137 / 113; Pulse 69; Resp 19; Temp 98.7(O); Pulse Ox 95% on R/A; Weight 81.65 kg; ld1 Height 5 ft. 4 in. (162.56 cm); 19:44 BP 161 / 60; Pulse 61; Resp 17; Pulse Ox 96% on R/A; ld1 19:03 Body Mass Index 30.90 (81.65 kg, 162.56 cm) ld1 Nicholas Coma Score: 18:30 Eye Response: spontaneous(4). Verbal Response: inappropriate words(3). Motor Response: cp localizes pain(5). Total: 12. ED Course: 18:17 Patient arrived in ED. cp 18:18 Guerrero Min PA is PHCP. cp 18:18 Devendra Melton MD is Attending Physician. cp 18:29 CT Traumagram (Head C Spine CAP wo con) In Process Unspecified. EDMS 18:46 Initiated transfer at [facility] with Sara Say. Stated she would make a few tt3 calls and call back. 19:02 Sara Deal called back to speak with WAQAR Wing, pt provider regarding the tt3 transfer request. 19:03 Rocío Ramires, RN is Primary Nurse. ld1 19:05 Triage completed. ld1 19:05 Arm band placed on left wrist. ld1 19:08 Patient has correct armband on for positive identification. Bed in low position. Call ld1 light in reach. Side rails up X2. cardiac monitor on. Pulse ox on. NIBP on. Warm blanket given. Pillow given. 19:08 No provider procedures requiring assistance completed. Missed attempt(s): 20 gauge in ld1 right forearm. 19:12 Sara Deal called back with their physician to speak with WAQAR Wing regarding tt3 the transfer request. 19:22 COVID-19 : Document "Date of Symptom Onset" if Symptomatic. Sent. ld1 19:25 Sara Deal called and gave admin approval. The pt is going to [facility] tt3 Neuro ICU. Dr. Do is the accepting physician. Nurse to call report to . Face sheet and MOT to be faxed to per Sara's request. 19:30 Inserted saline lock: 22 gauge in right wrist, using aseptic technique. zb 20:18 Patient transferred, IV remains in place. intact, bleeding controlled, No ld1 redness/swelling at site. Administered Medications: 19:22 Drug: Keppra (levETIRAcetam) 1000 mg Route: IV; Rate: calculated rate; Site: right ld1 wrist; 19:46 Follow up: Response: No adverse reaction; IV Status: Completed infusion ld1 Outcome: 18:51 ER care complete, transfer ordered by . cp 20:18 Transferred by helicopter to [facility]. ld1 20:18 Condition: unchanged 20:18 Instructed on the need for transfer. 20:18 Patient left the ED. ld1 Signatures: Dispatcher [employer] EDMS Guerrero Min PA PA cp Trim, Tyler tt3 Brianda Tate RN RN zb Dibbern, Lauren, RN RN ld1 Corrections: (The following items were deleted from the chart) 19:36 18:46 Initiated transfer at [facility] with Sara. Stated she would make a few tt3 calls and call back. tt3
--- NOTE | 2020-09-24 18:52 | EDPHYS ---
Physician Documentation [facility] Name: Dai Trujillo Age: 65 yrs Sex: Female : 1955 Arrival Date: 09/24/2020 Time: 18:17 Bed 30 Private MD: ED Physician Devendra Melton HPI: 09/24 18:30 This 65 yrs old Female presents to ER via Unassigned with complaints of Fall. cp 18:30 The patient or guardian reports injury, swelling, tenderness. The complaints affect the cp right frontal area and right temporal area. Context of injury: resulted from a fall, unwitnessed. Onset: The symptoms/episode began/occurred at an unknown time. Associated signs and symptoms: Pertinent positives: Altered Mental Status, Pertinent negatives: incontinence, neck pain. Historical: - Allergies: 19:05 Codeine; ld1 - Home Meds: 19:05 amlodipine 5 mg tab [Active]; aspirin 81 mg Oral TbEC 1 tab once daily [Active]; ld1 citalopram 20 mg tab 1 tab once daily [Active]; meloxicam 7.5 mg Oral tab [Active]; memantine 14 mg Oral CSpX 1 cap once daily [Active]; simvastatin 40 mg Oral tab 1 tab once daily [Active]; - PMHx: 19:05 Alzheimers; Arthritis; brain cancer; Dementia; depressive disorder; Glaucoma; ld1 Hyperlipidemia; Hypertensive disorder; TIA; - Immunization history:: Adult Immunizations up to date. - Social history:: Smoking status: Patient denies any tobacco usage or history of. ROS: 18:35 Cardiovascular: Negative for chest pain. cp 18:35 Constitutional: Negative for fever. cp 18:35 Neck: Negative for stiffness, tenderness, bony tenderness. 18:35 Abdomen/GI: Negative for vomiting. 18:35 Back: Negative for pain at rest. 18:35 Neuro: Positive for altered mental status, Negative for headache. 18:35 Unable to obtain ROS due to altered mental status. Exam: 18:40 Constitutional: The patient appears alert, awake, non-diaphoretic, non-toxic, well cp developed, well nourished. 18:40 Head/face: Noted is hematoma, that is moderate, of the right frontal area and right cp temporal area, tenderness, that is mild, of the right frontal area and right temporal area. 18:40 Eyes: Periorbital structures: appear normal, Pupils: equal, round, and reactive to light and accomodation, Conjunctiva: normal, no exudate, no injection, Lids and lashes: appear normal, bilaterally. 18:40 Neck: C-spine: vertebral tenderness, is not appreciated, crepitus, is not appreciated, ROM/movement: pain, is not appreciated, limited range of motion, is not appreciated. 18:40 Chest/axilla: Inspection: normal, Palpation: is normal, no crepitus, no tenderness. 18:40 Cardiovascular: Rate: normal, Rhythm: regular, Pulses: Pulses are 2+ in right radial artery, right dorsalis pedis artery, left radial artery and left dorsalis pedis artery. Edema: is not appreciated, JVD: is not appreciated. 18:40 Respiratory: the patient does not display signs of respiratory distress, Respirations: normal, no use of accessory muscles, Breath sounds: are clear throughout, no decreased breath sounds, no stridor, no wheezing. 18:40 Abdomen/GI: Inspection: abdomen appears normal, Palpation: abdomen is soft and non-tender, in all quadrants. 18:40 Back: vertebral tenderness, is not appreciated. 18:40 Musculoskeletal/extremity: Exam is negative for decreased range of motion, deformity, injury. 18:40 Neuro: Orientation: to person, Mentation: slow to respond, confused, Motor: moves all fours, strength is normal. 19:50 ECG was reviewed by the Attending Physician. cp Vital Signs: 19:03 BP 137 / 113; Pulse 69; Resp 19; Temp 98.7(O); Pulse Ox 95% on R/A; Weight 81.65 kg; ld1 Height 5 ft. 4 in. (162.56 cm); 19:44 BP 161 / 60; Pulse 61; Resp 17; Pulse Ox 96% on R/A; ld1 19:03 Body Mass Index 30.90 (81.65 kg, 162.56 cm) ld1 Nicholas Coma Score: 18:30 Eye Response: spontaneous(4). Verbal Response: inappropriate words(3). Motor Response: cp localizes pain(5). Total: 12. MDM: 18:25 Differential diagnosis: Contusion of Hematoma on Intracranial bleed- Concussion cp cerebral contusion. 18:51 Patient medically screened. cp 18:55 Data reviewed: vital signs, nurses notes, radiologic studies, CT scan, I have discussed cp the patient's presentation/case with the attending Emergency Department Physician;. 18:55 Counseling: I had a detailed discussion with the patient and/or guardian regarding: the cp historical points, exam findings, and any diagnostic results supporting the discharge/admit diagnosis, radiology results, the need to transfer to another facility, [facility] does not immediately have the required specialist. 09/24 18:18 Order name: Basic Metabolic Panel 09/24 18:18 Order name: CBC with Diff cp 09/24 18:18 Order name: LFT's cp 09/24 18:18 Order name: Magnesium cp 09/24 18:18 Order name: NT PRO-BNP 09/24 18:18 Order name: PT-INR cp 09/24 18:18 Order name: Troponin (emerg Dept Use Only) cp 09/24 18:18 Order name: Basic Metabolic Panel EDGA 09/24 18:18 Order name: CBC with Automated Diff EDGA 09/24 18:18 Order name: Liver (Hepatic) Function EDGA 09/24 18:36 Order name: COVID-19 : Document "Date of Symptom Onset" if Symptomatic. 09/24 19:52 Order name: SARS-COV-2 RT PCR EDGA 09/24 18:18 Order name: CT Traumagram (Head C Spine CAP wo con); Complete Time: 18:49 cp 09/24 18:18 Order name: EKG; Complete Time: 18:19 cp 09/24 18:18 Order name: Cardiac monitoring; Complete Time: 19:03 cp 09/24 18:18 Order name: IV Saline Lock; Complete Time: 19:31 cp 09/24 18:18 Order name: Labs collected and sent; Complete Time: 19:31 cp 09/24 18:18 Order name: O2 Per Protocol; Complete Time: 19:03 cp 09/24 18:18 Order name: O2 Sat Monitoring; Complete Time: 19:03 cp EC:50 Rate is 73 beats/min. Rhythm is regular. GA interval is normal. QRS interval is normal. cp QT interval is prolonged at 458 msec. T waves are Inverted in leads V2, V3, V4. Interpreted by me. Reviewed by me. Administered Medications: 19:22 Drug: Keppra (levETIRAcetam) 1000 mg Route: IV; Rate: calculated rate; Site: right ld1 wrist; 19:46 Follow up: Response: No adverse reaction; IV Status: Completed infusion ld1 Disposition: 19:30 Chart complete. cp Disposition Summary: 09/24/20 18:51 Transfer Ordered Transfer Location: [facility] cp Reason: Higher level of care cp Condition: Stable cp Problem: new cp Symptoms: have improved cp Accepting Physician: Doctor(09/24/20 20:18) ld1 Diagnosis - Right Frontal Subdural Hematoma cp Forms: - Medication Reconciliation Form cp - SBAR form cp Addendum: 09/27/2020 07:10 Co-signature as Attending Physician, Devendra Melton MD I agree with the assessment and k dr plan of care. Signatures: Dispatcher [employer] EDDevendra Brantley MD MD [facility] Guerrero Min PA PA cp Rocío Ramires RN RN ld1 Corrections: (The following items were deleted from the chart) 09/24 18:56 18:19 Chest Single View+RAD.RAD.BRZ ordered. EDMS EDMS 18:57 18:37 CORONAVIRUS ordered. EDMS EDMS 20:18 19:22 Blood Transfusion Consent ordered. cp ld1 20:18 18:51 Doctor cp ld1
[2020-09-24] MEDS ORDERED: LEVETIRACETAM 500 MG/5 ML VIAL IV ONE (19:40)
[2020-09-24 19:43] LABS: Absolute Lymphocytes (CBC) 1.9 K/uL (0.7-4.9); Basophils % 0.9 % (0-1.3); Hematocrit 41.1 % (36.0-45.0); Lymphocytes % 19.7 % (15.3-44.8); MPV 8.4 fL (7.6-11.3); RBC Red Blood Cell Count 4.65 M/uL (3.86-4.86)
[2020-09-24] MEDS ORDERED: NA CHLORIDE 0.9% 250 ML ONE (19:47)
[2020-09-24 19:50] LABS: Protime INR 0.97
[2020-09-24 19:51] LABS: ALT/SGPT 22 U/L (12-78); AST/SGOT 30 U/L (15-37); Albumin 3.9 g/dL (3.4-5.0); Alkaline Phosphatase 67 U/L (45-117); BUN Blood Urea Nitrogen 16 mg/dL (7-18); Bicarbonate 27 mmol/L (21-32); Bilirubin Direct 0.1 mg/dL (0-0.2); Bilirubin Total 0.4 mg/dL (0.2-1.0); Glucose Level 131 mg/dL (74-106); Magnesium 1.9 mg/dL (1.8-2.4); NT PRO-BNP 256 pg/mL (<125); Potassium 3.7 mmol/L (3.5-5.1); Protein, Total 7.5 g/dL (6.4-8.2); Sodium Level 143 mmol/L (136-145); Troponin (Emerg Dept Use Only) < 0.02 ng/mL (0.0-0.045)
[2020-09-24 20:25] VITALS: TEMP 98.7
[2020-09-24 20:26] VITALS: BP 161/60; O2SAT 96
--- NOTE | 2020-09-28 16:58 | EKG ---
Test Date: 2020-09-24 Test Time: 19:44:54 Upper And Bottom Lacer Hand: OUMAR MEASUREMENT RESULTS: Intervals: Rate: 73 WI: 136 QRSD: 76 QT: 458 QTc: 504 [place]: P: 69 WI: 136 QRS: 57 T: 88 INTERPRETIVE STATEMENTS: Normal sinus rhythm T wave abnormality, consider anterior ischemia Prolonged QT Abnormal ECG Compared to ECG 08/30/2020 18:13:17 Prolonged QT interval now present T-wave abnormality still present Possible ischemia still present Electronically Signed On 09-28-20 16:54:02 CDT by Krishna Villela
== END 2020-09-24 20:18 | disposition short-term general hospital (02) ==
LOC: ER 17:50
DX: S06.5X0A Traumatic subdural hemorrhage without loss of consciousness, initial encounter (principal); W19.XXXA Unspecified fall, initial encounter; G30.9 Alzheimer's disease, unspecified; F02.80 Dementia in other diseases classified elsewhere, unspecified severity, without behavioral disturbance, psychotic disturbance, mood disturbance, and anxiety; I10 Essential (primary) hypertension; Z79.82 Long term (current) use of aspirin; Z88.5 Allergy status to narcotic agent; Z20.822 Contact with and (suspected) exposure to COVID-19
CPT/HCPCS: 96365; 85025; 80048; 36415; 83735; 85610; 80076; 84484; 83880; 70450; 71250; 72125; 99285; U0003; J1953; J7050; 93005

== ENCOUNTER 2020-11-04 22:21 | Emergency (ER) | payer OTHER ==
[2020-11-04 23:43] LABS: Absolute Lymphocytes (CBC) 3.4 K/uL (0.7-4.9); Basophils % 0.2 % (0-1.3); Hematocrit 40.1 % (36.0-45.0); Lymphocytes % 51.5 % (15.3-44.8); MPV 8.2 fL (7.6-11.3); RBC Red Blood Cell Count 4.47 M/uL (3.86-4.86)
[2020-11-04 23:56] LABS: Albumin 3.8 g/dL (3.4-5.0); Bilirubin Direct 0.2 mg/dL (0-0.2); Bilirubin Total 0.6 mg/dL (0.2-1.0); Potassium 3.7 mmol/L (3.5-5.1); Protein, Total 7.3 g/dL (6.4-8.2)
[2020-11-05 00:06] LABS: Urine Blood Negative (Negative); Urine Glucose Negative (Negative); Urine Protein Negative (Negative); Urine Specific Gravity >=1.030 (1.005-1.030); Urine pH 5.5 (5.0-7.0)
[2020-11-05 00:20] LABS: Blood Morphology Comment NOT SEEN (NOT SEEN); Platelet Estimate ADEQ
[2020-11-05] MEDS ORDERED: NA CHLORIDE 0.9% 500 ML ONE (00:55)
[2020-11-05 01:27] LABS: Urine Bacteria 20-50 /HPF (<20); Urine Mucus 2+ /HPF (NONE SEEN)
--- NOTE | 2020-11-05 02:13 | ER ---
Nurse's Notes [facility] Name: Dai Trujillo Age: 65 yrs Sex: Female : 1955 Arrival Date: 11/04/2020 Time: 22:24 Bed 7 Private MD: Diagnosis: Acute cystitis Presentation: 11/04 22:36 Chief complaint: Patient's son or daughter states: Daughter stated, " She hasn't kg urinated in about 30 hrs. She lives at [facility] and previously had a herrera catheter and it was removed 10/26 she has previously been voiding. ". Coronavirus screen: Vaccine status: Patient reports being unvaccinated. At this time, the client does not indicate any symptoms associated with coronavirus-19. Ebola Screen: Patient negative for fever greater than or equal to 101.5 degrees Fahrenheit, and additional compatible Ebola Virus Disease symptoms Patient denies exposure to infectious person. Patient denies travel to an Ebola-affected area in the 21 days before illness onset. Initial Sepsis Screen: Does the patient meet any 2 criteria? No. Patient's initial sepsis screen is negative. Does the patient have a suspected source of infection? No. Patient's initial sepsis screen is negative. Risk Assessment: Do you want to hurt yourself or someone else? Patient reports no desire to harm self or others. Onset of symptoms was November 03, 2020. 22:36 Method Of Arrival: Wheelchair kg 22:36 Acuity: STEFAN 3 kg Triage Assessment: 22:40 General: Appears in no apparent distress. Behavior is calm, cooperative, appropriate kg for age, quiet. Pain: Complains of pain in Generalized. 11/05 00:26 : straight cath return 110ml rubio clear urine Urine is Parent/caregiver report the mr2 patient having inability to void since 11/04 2099. Historical: - Allergies: 11/04 22:40 Codeine; kg - Home Meds: 22:40 simvastatin 40 mg Oral tab 1 tab once daily [Active]; memantine 14 mg Oral CSpX 1 cap kg once daily [Active]; meloxicam 7.5 mg Oral tab [Active]; citalopram 20 mg tab 1 tab once daily [Active]; aspirin 81 mg Oral TbEC 1 tab once daily [Active]; amlodipine 5 mg tab [Active]; - PMHx: 22:40 TIA; Hypertensive disorder; Hyperlipidemia; Glaucoma; depressive disorder; Dementia; kg brain cancer; Arthritis; Alzheimers; - PSHx: 22:40 Brain Sx; Total abdominal hysterectomy; Breast sx; kg - Immunization history:: Adult Immunizations up to date, Client reports having NOT received the Covid vaccine. - Social history:: Smoking status: Patient denies any tobacco usage or history of. Screenin:42 Abuse screen: Denies threats or abuse. Denies injuries from another. Nutritional kg screening: No deficits noted. Tuberculosis screening: No symptoms or risk factors identified. Fall Risk Fall in past 12 months (25 points). Secondary diagnosis (15 points) No IV (0 pts). Ambulatory Aid- None/Bed Rest/Nurse Assist (0 pts). Gait- Impaired (20 pts.). Mental Status- Overestimates/Forgets Limitations (15 pts.). Total Taylor Fall Scale indicates Low Risk Score (25-44 pts). Fall prevention measures have been instituted. Side Rails Up X 2 Placed close to Nursing Station 1:1 attendant Assigned to Pt. Frequent Obs/Assesments occuring Family Present and informed to notify staff if they need to leave bedside As available Patient and Family Educated on Fall Prevention Program and strategies. Vital Signs: 22:36 BP 116 / 68; Pulse 69; Resp 20; Temp 97.5(TE); Pulse Ox 97% on R/A; Weight 74.84 kg kg (R); Height 5 ft. 6 in. (167.64 cm); 11/05 02:06 BP 116 / 75; Pulse 59; Resp 17; Temp 98.4; Pulse Ox 97% on R/A; Pain 1/10; mr2 11/04 22:36 Body Mass Index 26.63 (74.84 kg, 167.64 cm) kg ED Course: 11/04 22:24 Patient arrived in ED. bp1 22:40 Triage completed. kg 22:40 Arm band placed on right wrist. kg 22:42 Patient has correct armband on for positive identification. kg 22:42 No provider procedures requiring assistance completed. kg 22:49 Guerrero Min PA is PHCP. cp 22:49 Bharathi Carlos MD is Attending Physician. cp 23:58 Denny Clement RN is Primary Nurse. mr2 09/24 00:19 Urine Dipstick-Ancillary Sent. mr2 00:19 Basic Metabolic Panel Sent. mr2 00:19 Hepatic Function Sent. mr2 00:19 Lipase Sent. mr2 00:25 Urine obtained. mr2 00:25 Patient placed. mr2 01:22 CT Abd/Pelvis - IV Contrast Only In Process Unspecified. EDMS 02:36 IV discontinued, intact, bleeding controlled, No redness/swelling at site. mr2 Administered Medications: 00:35 Drug: NS 0.9% 500 ml Route: IV; Rate: bolus; Site: right antecubital; mr2 02:14 Drug: Rocephin (cefTRIAXone) 1 grams Route: IV; Rate: calculated rate; Infused Over: 2 mr2 mins; Site: right antecubital; Outcome: 02:13 Discharge ordered by . ish 02:35 Discharged to home via wheelchair, with family. mr2 02:35 Condition: stable 02:35 Discharge instructions given to family, Prescriptions given X 2. 02:35 Demonstrated understanding of instructions, medications. 02:39 Patient left the ED. mr2 Signatures: Dispatcher [employer] EDMS Guerrero Min PA PA cp [place], Brittany bp1 Graham, Kristen, RN RN kg Denny Clement, IAN RN mr2
--- NOTE | 2020-11-05 02:14 | EDPHYS ---
Physician Documentation [facility] Name: Dai Trujillo Age: 65 yrs Sex: Female : 1955 Arrival Date: 11/04/2020 Time: 22:24 Bed 7 Private MD: ED Physician Bharathi Carlos HPI: 11/04 23:15 This 65 yrs old Female presents to ER via Wheelchair with complaints of cp Urinary Retention. 23:15 Onset: The symptoms/episode began/occurred yesterday. cp 23:15 The patient presents with urinary symptoms, urinary retention. cp 23:15 Associated signs and symptoms: The patient has no apparent associated signs or symptoms.cp Historical: - Allergies: 22:40 Codeine; kg - Home Meds: 22:40 simvastatin 40 mg Oral tab 1 tab once daily [Active]; memantine 14 mg Oral CSpX 1 cap kg once daily [Active]; meloxicam 7.5 mg Oral tab [Active]; citalopram 20 mg tab 1 tab once daily [Active]; aspirin 81 mg Oral TbEC 1 tab once daily [Active]; amlodipine 5 mg tab [Active]; - PMHx: 22:40 TIA; Hypertensive disorder; Hyperlipidemia; Glaucoma; depressive disorder; Dementia; kg brain cancer; Arthritis; Alzheimers; - PSHx: 22:40 Brain Sx; Total abdominal hysterectomy; Breast sx; kg - Immunization history:: Adult Immunizations up to date, Client reports having NOT received the Covid vaccine. - Social history:: Smoking status: Patient denies any tobacco usage or history of. ROS: 23:20 Abdomen/GI: Positive for abdominal pain, Negative for vomiting, diarrhea, constipation, cp anorexia, black/tarry stool, rectal bleeding. 23:20 Constitutional: Negative for body aches, chills, fever, poor PO intake. cp 23:20 : Positive for difficulty urinating, decreased urine output. 23:20 Eyes: Negative for injury, pain, redness, and discharge. cp 23:20 Cardiovascular: Negative for chest pain. cp 23:20 Respiratory: Negative for cough, shortness of breath, wheezing. 23:20 Back: Negative for pain at rest, pain with movement. 23:20 All other systems are negative. Exam: 23:20 Constitutional: The patient appears in no acute distress, alert, awake, non-toxic, well cp developed, well nourished. 23:20 Head/Face: Normocephalic, atraumatic. cp 23:20 Eyes: Periorbital structures: appear normal, Conjunctiva: normal, no exudate, no injection, Sclera: no appreciated abnormality, Lids and lashes: appear normal, bilaterally. 23:20 ENT: External ear(s): are unremarkable, Nose: is normal, Mouth: Lips: moist, Oral mucosa: moist, Posterior pharynx: Airway: no evidence of obstruction, patent. 23:20 Chest/axilla: Inspection: normal. 23:20 Cardiovascular: Rate: normal, Rhythm: regular. 23:20 Respiratory: the patient does not display signs of respiratory distress, Respirations: normal, no use of accessory muscles, no retractions, labored breathing, is not present, Breath sounds: are clear throughout, no decreased breath sounds. 23:20 Abdomen/GI: Inspection: abdomen appears normal, Bowel sounds: active, all quadrants, Palpation: soft, in all quadrants, mild abdominal tenderness, in the suprapubic area, rebound tenderness, is not appreciated, involuntary guarding, is not appreciated. 23:20 Back: pain, is absent, ROM is normal. 23:20 Neuro: Orientation: no acute changes, per family, Mentation: no acute changes, per family, Motor: moves all fours, strength is normal. Vital Signs: 22:36 BP 116 / 68; Pulse 69; Resp 20; Temp 97.5(TE); Pulse Ox 97% on R/A; Weight 74.84 kg kg (R); Height 5 ft. 6 in. (167.64 cm); 11/05 02:06 BP 116 / 75; Pulse 59; Resp 17; Temp 98.4; Pulse Ox 97% on R/A; Pain 1/10; mr2 11/04 22:36 Body Mass Index 26.63 (74.84 kg, 167.64 cm) kg MDM: 11/04 23:07 Patient medically screened. cp 11/05 00:00 Differential diagnosis: urinary tract infection, pyelonephritis, urinary retention. cp 02:13 Data reviewed: vital signs, nurses notes, lab test result(s), radiologic studies, CT cp scan. 02:13 Counseling: I had a detailed discussion with the patient and/or guardian regarding: the cp historical points, exam findings, and any diagnostic results supporting the discharge/admit diagnosis, lab results, radiology results, to return to the emergency department if symptoms worsen or persist or if there are any questions or concerns that arise at home. ED course: VSS. Patient appears non-toxic. Will discharge to home for continued monitoring. 11/04 23:07 Order name: Basic Metabolic Panel 11/04 23:07 Order name: CBC with Diff; Complete Time: 00:22 11/05 00:00 Interpretation: Normal except: JORDI% 35.1; LYM% 51.5. 11/04 23:07 Order name: Hepatic Function 11/04 23:07 Order name: Lipase 11/04 23:08 Order name: Basic Metabolic Panel; Complete Time: 00:00 EDOH 11/05 00:00 Interpretation: Normal except: CL 109; GLUC 112; GFR 87. 11/04 23:08 Order name: Liver (Hepatic) Function; Complete Time: 00:00 EDOH 11/04 23:08 Order name: Lipase; Complete Time: 00:00 EDOH 11/04 23:09 Order name: Urine Microscopic Only; Complete Time: 01:46 11/05 01:46 Interpretation: Normal except: UWBC 5-10; URBC 5-10; UBACT 20-50; SQEPI 5-10. 11/04 23:51 Order name: Manual Differential; Complete Time: 00:22 EDOH 11/05 00:22 Interpretation: Normal except: SEGS 29; LYM 50. 11/05 00:06 Order name: Urine Dipstick-Ancillary; Complete Time: 00:22 EDOH 11/05 00:09 Order name: Urine Dipstick-Ancillary EDOH 11/05 00:26 Order name: CT Abd/Pelvis - IV Contrast Only 11/05 01:28 Order name: Urine Culture EDOH 11/04 23:07 Order name: IV Saline Lock; Complete Time: 00:20 11/04 23:07 Order name: Labs collected and sent; Complete Time: 00:20 cp 11/04 23:07 Order name: Bladder Scanner: pre and post void; Complete Time: 00:19 cp 11/04 23:09 Order name: Urine Dipstick-Ancillary (obtain specimen); Complete Time: 00:19 cp Administered Medications: 00:35 Drug: NS 0.9% 500 ml Route: IV; Rate: bolus; Site: right antecubital; mr2 02:14 Drug: Rocephin (cefTRIAXone) 1 grams Route: IV; Rate: calculated rate; Infused Over: 2 mr2 mins; Site: right antecubital; Disposition: 05:08 Co-signature as Attending Physician, Bharathi Carlos MD. 7 Disposition Summary: 11/05/20 02:13 Discharge Ordered Location: Home cp Problem: new cp Symptoms: have improved cp Condition: Stable cp Diagnosis - Acute cystitis cp Followup: cp - With: Private Physician - When: 2 - 3 days - Reason: Recheck today's complaints Discharge Instructions: - Discharge Summary Sheet cp - Urinary Tract Infection, Adult cp Forms: - Medication Reconciliation Form cp - Thank You Letter cp - Antibiotic Education cp - Prescription Opioid Use cp Prescriptions: - Bactrim DS 800-160 mg Oral Tablet - take 1 tablet by ORAL route every 12 hours for 7 days; 14 tablet; Refills: 0, cp Product Selection Permitted - Pyridium 200 mg Oral Tablet - take 1 tablet by ORAL route every 8 hours for 2 days; 6 tablet; Refills: 0, cp Product Selection Permitted Signatures: Dispatcher [employer] EDMS Guerrero Min PA PA cp Bharathi Carlos MD MD 7 Rhea Rivero, IAN RN kg Denny Clement RN RN mr2 Corrections: (The following items were deleted from the chart) 02:14 02:13 UTI/ Urinary tract infection, site not specified cp cp
[2020-11-05] MEDS ORDERED: CEFTRIAXONE 1000 MG/VIAL ONE (02:38)
[2020-11-05 04:57] VITALS: O2SAT 97
[2020-11-05 04:58] VITALS: BP 116/75; TEMP 98.4
--- NOTE | 2020-11-05 19:16 | RAD REPORT ---
EXAM DESCRIPTION: CT - Abdomen Pelvis W Contrast - 11/05/2020 6:41 am CLINICAL HISTORY: The patient is 65 years old and is Female; ABD PAIN TECHNIQUE: Axial computed tomography images of the abdomen and pelvis with intravenous contrast. S agittal and coronal reformatted images were created and reviewed. This CT exam was performed using one or more of the following dose reduction techniques: automated exposure control, adjustment of t he mA and/or kV according to patient size, and/or use of iterative reconstruction technique. COMPARISON: No relevant prior studies available. FINDINGS: Lung bases: Unremarkable. No mass. No consolidation. ABDOMEN: Liver: There are two tiny low-density lesions in the liver which are too small to fully character ize but may represent cysts. Gallbladder and bile ducts: Unremarkable. No calcified stones. No ductal dilation. Pancreas: Unremarkable. No mass. No ductal dilation. Spleen: Unremarkable. No splenomegaly. Adrenals: Unremarkable. No mass. Kidneys and ureters: Bilateral renal sinus cysts. No hydronephrosis. Stomach and bowel: Scattered colonic diverticula. No obstruction. No mucosal thickening. PELVIS: Appendix: The appendix is normal. Bladder: There is the suggestion of bladder wall thickening, but the bladder is relatively nondis tended limiting evaluation. Reproductive: Uterus is not seen. ABDOMEN and PELVIS: Intraperitoneal space: Unremarkable. No free air. No significant fluid collection. Bones/joints: No acute fracture. No dislocation. Soft tissues: Bilateral breast implants. Vasculature: Scattered atherosclerotic vascular calcifications. No abdominal aortic aneurysm. Lymph nodes: Unremarkable. No enlarged lymph nodes. IMPRESSION: 1. No acute finding. 2. There is the suggestion of bladder wall thickening, but the bladder is relatively nondistended l imiting evaluation. Correlate with any concern for cystitis. 3. Scattered colonic diverticula. 4. The appendix is normal. Electronically signed by: Dudley De Leon MD 11/05/2020 1:46 AM CDT Due to temporary technical issues with the PACS/Fluency reporting system, reports are being signed by the in house radiologists without review as a courtesy to insure prompt reporting. The interpreting radiologist is fully responsible for the content of the report.
== END 2020-11-05 02:39 | disposition home or self-care (01) ==
LOC: ER 22:21
DX: N30.00 Acute cystitis without hematuria (principal); I10 Essential (primary) hypertension; G30.9 Alzheimer's disease, unspecified; F02.80 Dementia in other diseases classified elsewhere, unspecified severity, without behavioral disturbance, psychotic disturbance, mood disturbance, and anxiety; Z79.82 Long term (current) use of aspirin; Z88.5 Allergy status to narcotic agent
CPT/HCPCS: 87088; 85025; 87086; 80048; 36415; 80076; 81003; 81015; 83690; 74177; 96374; 99284; Q9967; J7040

== ENCOUNTER 2020-11-12 10:16 | Emergency (ER) | payer OTHER ==
[2020-11-12] MEDS ORDERED: DIAZEPAM 5 MG TABLET ONE (10:58)
--- NOTE | 2020-11-12 11:19 | RAD REPORT ---
EXAM DESCRIPTION: CT - CTHCSPWOC - 11/12/2020 11:04 am CLINICAL HISTORY: Trauma, head and neck injury. fall, head injury, on plavix COMPARISON: Thoracic Spine W/o Cont dated 07/08/2020; Brain W/Wo Cont dated 08/30/2020 TECHNIQUE: Axial 5 mm thick images of the head were obtained. Axial 2 mm thick images of the cervical spine were obtained with sagittal and coronal reconstruction images generated and reviewed. All CT scans are performed using dose optimization technique as appropriate and may include automated exposure control or mA/KV adjustment according to patient size. FINDINGS: CT HEAD WITHOUT CONTRAST: No acute hemorrhage, hydrocephalus or extra-axial collection is identified.No areas of brain edema or midline shift. Right occipital lobe and parietal lobe encephalomalacia. Severe chronic small vessel ischemic changes. The paranasal sinuses and mastoids are clear.The calvarium is intact. Prior right parietal craniotomy . CT CERVICAL SPINE WITHOUT CONTRAST: No fracture or subluxation.No prevertebral soft tissues swelling is identified. Multilevel cervical s pondylosis with varying degrees of neural foraminal narrowing. Question mild central spinal stenosis at the C5-6 and C6-7 levels secondary to posterior disc osteophyte complexes. IMPRESSION: No acute intracranial or cervical spine findings.
--- NOTE | 2020-11-12 11:22 | EDPHYS ---
Physician Documentation [facility] Name: Dai Trujillo Age: 65 yrs Sex: Female : 1955 Arrival Date: 11/12/2020 Time: 10:23 Bed 27 Private MD: ED Physician Supa Marte HPI: 11/12 10:43 This 65 yrs old Female presents to ER via EMS with complaints of Unwitnessed rn fall, head injury. 10:43 The patient or guardian reports injury. The complaints affect the nose. Onset: The rn symptoms/episode began/occurred this morning. Severity of symptoms: At their worst the symptoms were mild, in the emergency department the symptoms have improved. It is unknown whether or not the patient has had similar symptoms in the past. It is unknown whether or not the patient has recently seen a physician. EMS states brought in from custodial after unwitnessed fall. Was found down in room with bloody nose. Patient on Plavix. Patient denies any loss of consciousness but cannot recall how she fell. Pain only to head and mild. No injuries to extremities or ribs. Denies any new back pain.. Historical: - Immunization history:: Adult Immunizations up to date, Client reports having NOT received the Covid vaccine. - Social history:: Smoking status: Patient denies any tobacco usage or history of. Patient/guardian denies using alcohol, IV drugs, tobacco products. - Family history:: not pertinent. - Hospitalizations: : No recent hospitalization is reported. ROS: 10:43 Constitutional: Negative for fever, chills, and weight loss, Eyes: Negative for injury, rn pain, redness, and discharge, ENT: Positive for bloody nose Neck: Negative for injury, pain, and swelling, Cardiovascular: Negative for chest pain, palpitations, and edema, Respiratory: Negative for shortness of breath, cough, wheezing, and pleuritic chest pain, Abdomen/GI: Negative for abdominal pain, nausea, vomiting, diarrhea, and constipation, Back: Negative for injury and pain, MS/Extremity: Negative for injury and deformity, Skin: Negative for injury, rash, and discoloration, Neuro: Negative for weakness, numbness, tingling, and seizure. 10:43 All other systems are negative. Exam: 10:43 Constitutional: This is a well developed, well nourished patient who is awake, alert, rn and in no acute distress. Head/Face: Normocephalic, dry blood in nares bilaterally, no tenderness or deformity of nose. Negative for septal hematoma. Eyes: Periorbital areas with no swelling, redness, or edema. Neck: No midline cervical tenderness Chest/axilla: Normal chest wall appearance and motion. Nontender with no deformity. No lesions are appreciated. Cardiovascular: Regular rate and rhythm . No pulse deficits. Respiratory: No increased work of breathing, no retractions or nasal flaring. Abdomen/GI: Soft, non-tender Skin: Warm, dry, no lacerations noted MS/ Extremity: Pulses equal, no cyanosis. Neurovascular intact. Full, normal range of motion. Equal circumference. Neuro: Awake and alert, GCS 15, oriented to person, place, and situation. Motor strength 5/5 in all extremities. Sensory grossly intact. Vital Signs: 10:23 BP 115 / 60; Pulse 73; Resp 18; Temp 97.1(TE); Pulse Ox 96% on R/A; Weight 58.97 kg; kh1 Height 5 ft. 6 in. (167.64 cm); Pain 0/10; 10:30 BP 115 / 60; Pulse 73; Resp 18; Temp 97.1; Pulse Ox 96% ; kh1 10:23 Body Mass Index 20.98 (58.97 kg, 167.64 cm) kh1 [place] Coma Score: 10:43 Eye Response: spontaneous(4). Verbal Response: oriented(5). Motor Response: obeys rn commands(6). Total: 15. 11:20 Eye Response: spontaneous(4). Verbal Response: oriented(5). Motor Response: obeys rn commands(6). Total: 15. MDM: 10:24 Patient medically screened. rn 11:20 Differential diagnosis: Contusion of Hematoma on Intracranial bleed- Concussion. Data rn reviewed: vital signs, nurses notes, radiologic studies, CT scan, and as a result, I will discharge patient. Counseling: I had a detailed discussion with the patient and/or guardian regarding: the historical points, exam findings, and any diagnostic results supporting the discharge/admit diagnosis, radiology results, the need for outpatient follow up, to return to the emergency department if symptoms worsen or persist or if there are any questions or concerns that arise at home. Special discussion: Based on the patient's history, exam and DX evaluation, there is no indication for emergent intervention or inpatient TX. It is understood by the patient/guardian that if the SXs persist or worsen they need to return immediately for re-evaluation. I discussed with the patient/guardian in detail that at this point there is no indication for admission to the hospital. It is understood, however, that if the symptoms persist or worsen the patient needs to return immediately for re-evaluation. 11/12 10:25 Order name: CT Head C Spine; Complete Time: 11:20 rn Administered Medications: 10:43 Drug: Valium (diazepam) 2 mg Route: PO; [facility] Disposition Summary: 11/12/20 11:22 Discharge Ordered Location: Home rn Problem: new rn Symptoms: have improved rn Condition: Stable rn Diagnosis - Unspecified injury of head, initial encounter rn - Epistaxis - Traumatic rn Followup: rn - With: Private Physician - When: As needed - Reason: Recheck today's complaints, Re-evaluation by your physician Discharge Instructions: - Discharge Summary Sheet rn - Nosebleed, Adult rn - Head Injury, Adult rn Forms: - Medication Reconciliation Form rn - Thank You Letter rn - Antibiotic assessment rn - Prescription Opioid Use rn Signatures: Dispatcher [employer] EDSupa Botello MD MD rn Terra Santamaria [facility] Corrections: (The following items were deleted from the chart) 10 10:27 PMHx: brain cancer; [place] [id number] 10:27 PMHx: Alzheimers; [place] [id number] 10:27 PMHx: Dementia; [place] [id number] 10:27 PMHx: Arthritis; [place] [address] 10:27 PMHx: TIA; [place] [id number] : 10:27 PMHx: Hypertensive disorder; [place] [id number] : 10:27 PMHx: Hyperlipidemia; [place] [address] 10:27 PMHx: depressive disorder; [place] [address] 10:27 PMHx: Glaucoma; [place] [address] 10: 10:27 PSHx: Brain sx; [place] [id number] 10: 10:27 PSHx: Total abdominal hysterectomy; [place] [address] 10:27 PSHx: Breast sx; kh1 kh1
--- NOTE | 2020-11-12 11:22 | ER ---
Nurse's Notes [facility] Name: Dai Trujillo Age: 65 yrs Sex: Female : 1955 Arrival Date: 11/12/2020 Time: 10:23 Bed 27 Private MD: Diagnosis: Unspecified injury of head, initial encounter;Epistaxis-Traumatic Presentation: 11/12 10:23 Chief complaint: EMS states: [facility]/O UNWITNESSED FALL. PT 1 DOES NOT KNOW HOW THEY FELL. PT INITIALLY HAD SOME NOSE BLEED . NO ACTIVE BLEEDING AT THIS TIME. DENIES LOC. DENIES HEAD PAIN AT THIS TIME. Coronavirus screen: Vaccine status: Patient reports being unvaccinated. Ebola Screen: No symptoms or risks identified at this time. Initial Sepsis Screen: Does the patient meet any 2 criteria? No. Patient's initial sepsis screen is negative. Does the patient have a suspected source of infection? No. Patient's initial sepsis screen is negative. Risk Assessment: Do you want to hurt yourself or someone else? Patient reports no desire to harm self or others. Onset of symptoms was November 12, 2020. 10:23 Method Of Arrival: EMS: [place] [id number] 10:23 Acuity: STEFAN 4 1 Triage Assessment: 10:28 General: Appears in no apparent distress. comfortable, Behavior is calm, cooperative. 1 Pain: Denies pain. Historical: - Immunization history:: Adult Immunizations up to date, Client reports having NOT received the Covid vaccine. - Social history:: Smoking status: Patient denies any tobacco usage or history of. Patient/guardian denies using alcohol, IV drugs, tobacco products. - Family history:: not pertinent. - Hospitalizations: : No recent hospitalization is reported. Screenin:29 Abuse screen: Denies threats or abuse. Nutritional screening: No deficits noted. On no kh1 prescribed diet Difficulty chewing/swallowing? No. Tuberculosis screening: No symptoms or risk factors identified. Fall Risk Fall in past 12 months (25 points). Secondary diagnosis (15 points) dementia, No IV (0 pts). Ambulatory Aid- Gait- Weak (10 pts.). Mental Status- Oriented to own ability (0 pts). Assessment: 10:29 General: Appears in no apparent distress. comfortable, Behavior is calm, cooperative. kh1 Pain: Denies pain. 11:25 Reassessment: Patient appears in no apparent distress at this time. No changes from [facility] previously documented assessment. Patient and/or family updated on plan of care and expected duration. Pain level reassessed. Patient is alert, oriented x 3, equal unlabored respirations, skin warm/dry/pink. Vital Signs: 10:23 BP 115 / 60; Pulse 73; Resp 18; Temp 97.1(TE); Pulse Ox 96% on R/A; Weight 58.97 kg; 1 Height 5 ft. 6 in. (167.64 cm); Pain 0/10; 10:30 BP 115 / 60; Pulse 73; Resp 18; Temp 97.1; Pulse Ox 96% ; kh1 10:23 Body Mass Index 20.98 (58.97 kg, 167.64 cm) [facility] Vitals: 10:30 Cardiac Rhythm Assessment Regular. [facility] Nicholas Coma Score: 10:43 Eye Response: spontaneous(4). Verbal Response: oriented(5). Motor Response: obeys rn commands(6). Total: 15. 11:20 Eye Response: spontaneous(4). Verbal Response: oriented(5). Motor Response: obeys rn commands(6). Total: 15. ED Course: 10:23 Patient arrived in ED. 1 10:23 Terra Santamaria is Primary Nurse. 1 10:24 Supa Marte MD is Attending Physician. rn 10:27 Triage completed. 1 10:28 Arm band placed on right wrist. 1 10:29 Patient has correct armband on for positive identification. Bed in low position. Call [facility] light in reach. Side rails up X2. 11:03 CT Head C Spine In Process Unspecified. EDMS 12:33 Patient did not have IV access during this emergency room visit. [facility] Administered Medications: 10:43 Drug: Valium (diazepam) 2 mg Route: PO; [facility] Outcome: 11:22 Discharge ordered by . rn 12:32 Discharged to [facility]. Report called to jose whitney 12:32 Condition: stable 12:32 Discharge instructions given to patient, Instructed on discharge instructions, follow up and referral plans. Demonstrated understanding of instructions, follow-up care. 12:34 Patient left the ED. [facility] Signatures: Dispatcher MedHoSupa Lang MD MD rn Harris, Kecia kh1 Corrections: (The following items were deleted from the chart) 10: PMHx: brain cancer; kh1 kh1 10: PMHx: Alzheimers; kh1 kh1 10:27 PMHx: Dementia; kh1 kh1 10:27 PMHx: Arthritis; kh1 kh1 10: PMHx: TIA; kh1 kh1 10: PMHx: Hypertensive disorder; kh1 kh1 10:27 PMHx: Hyperlipidemia; kh1 kh1 10:27 PMHx: depressive disorder; kh1 kh1 10:27 PMHx: Glaucoma; kh1 kh1 10:27 PSHx: Brain sx; kh1 kh1 10:27 PSHx: Total abdominal hysterectomy; kh1 kh1 10:27 PSHx: Breast sx; kh1 kh1
[2020-11-12 12:38] VITALS: BP 115/60; TEMP 97.1; O2SAT 96
== END 2020-11-12 12:34 | disposition home or self-care (01) ==
LOC: ER 10:16
DX: R04.0 Epistaxis (principal); W19.XXXA Unspecified fall, initial encounter; Y92.122 Bedroom in nursing home as the place of occurrence of the external cause
CPT/HCPCS: 70450; 72125; 99283

== ENCOUNTER 2020-12-10 06:35 | Emergency (ER) | payer OTHER ==
--- NOTE | 2020-12-10 07:24 | RAD REPORT ---
EXAM DESCRIPTION: CT - CTHCSPWOC - 12/10/2020 7:11 am CLINICAL HISTORY: Trauma, head and neck injury. fall COMPARISON: Head C Spine Mpr Wo Con dated 11/12/2020; Thoracic Spine W/o Cont dated 07/08/2020 TECHNIQUE: Axial 5 mm thick images of the head were obtained. Axial 2 mm thick images of the cervical spine were obtained with sagittal and coronal reconstruction images generated and reviewed. All CT scans are performed using dose optimization technique as appropriate and may include automated exposure control or mA/KV adjustment according to patient size. FINDINGS: CT HEAD WITHOUT CONTRAST: Small focus of hyperintensity along the intra cerebral falx on image 27, series 201. This is not stevie rly calcified. It is at a site of previously seen normal intracerebral falcine calcification. Postsur gical changes in the right occipital lobe. Small irregular calcifications in the left occipital lobe are unchanged. Moderate white matter disease which may be treatment related.No areas of brain edema o r midline shift. The paranasal sinuses and mastoids are clear.Status post right occipital craniotomy. No skull fractur es identified. CT CERVICAL SPINE WITHOUT CONTRAST: No fracture or subluxation.No prevertebral soft tissues swelling is identified. Multilevel cervical s pondylosis with varying degrees of neural foraminal narrowing. IMPRESSION: Small focus of hyperdensity along the intracerebral falx favored to represent motion art ifact on a cerebral falx calcification simulating the presence of a small subdural hematoma. Consider short term follow-up head CT to exclude acute hemorrhage when the patient is able to remain still. No fracture of the cervical spine.
[2020-12-10] MEDS ORDERED: HYDROCODONE/APAP 5/325 MG TAB ONE (09:00)
--- NOTE | 2020-12-10 10:23 | RAD REPORT ---
EXAM DESCRIPTION: RAD - Hip Left 2 View - 12/10/2020 9:54 am CLINICAL HISTORY: fall COMPARISON: Hip Right 2 View dated 12/10/2020; Pelvis dated 12/10/2020 FINDINGS: Mildly displaced left subcapital femoral neck fracture is present. No dislocation. IMPRESSION: Left subcapital femoral neck fracture.
--- NOTE | 2020-12-10 10:24 | RAD REPORT ---
EXAM DESCRIPTION: RAD - Hip Right 2 View - 12/10/2020 9:54 am CLINICAL HISTORY: fall COMPARISON: No comparisons FINDINGS: No acute fracture. No malalignment. Mild right acetabular degenerative changes. IMPRESSION: No acute osseous abnormality involving the right hip.
--- NOTE | 2020-12-10 10:24 | RAD REPORT ---
EXAM DESCRIPTION: RAD - Pelvis - 12/10/2020 9:54 am CLINICAL HISTORY: fall COMPARISON: No comparisons FINDINGS: Left subcapital femoral neck fracture. No pelvic fracture is identified. The right hip is intact. The femoral heads appear located on this single view. IMPRESSION: Left subcapital femoral neck fracture. No fractures of the bony pelvis.
[2020-12-10] MEDS ORDERED: ONDANSETRON 4 MG/2 ML VIAL ONE (11:09)
[2020-12-10] MEDS ORDERED: MORPHINE 2 MG/ML SYR ONE ×2 (11:09→11:41)
--- NOTE | 2020-12-10 11:29 | ER ---
Nurse's Notes [facility] Name: Dai Trujillo Age: 65 yrs Sex: Female : 1955 Arrival Date: 12/10/2020 Time: 06:48 Bed 15 Private MD: Diagnosis: Subcapital Fracture;Unspecified injury of head, initial encounter Presentation: 12/10 06:49 Chief complaint: Patient states: " I fell going to the bathroom" EMS states: Called by [facility] Staff stating they found pt on floor with a small laceration to left of head. Pt is AOx2. Coronavirus screen: Client denies travel out of the [place] in the last 14 days. At this time, the client does not indicate any symptoms associated with coronavirus-19. Ebola Screen: Patient negative for fever greater than or equal to 101.5 degrees Fahrenheit, and additional compatible Ebola Virus Disease symptoms Patient denies exposure to infectious person. Patient denies travel to an Ebola-affected area in the 21 days before illness onset. No symptoms or risks identified at this time. Initial Sepsis Screen: Does the patient meet any 2 criteria? No. Patient's initial sepsis screen is negative. Does the patient have a suspected source of infection? No. Patient's initial sepsis screen is negative. Risk Assessment: Do you want to hurt yourself or someone else? Patient reports no desire to harm self or others. Onset of symptoms was December 10, 2020 at 06:00. Mechanism of Injury: Fall Unwitnessed fall .Pt states fell while going to the bathroom. Transition of care: patient was received from another setting of care (long-term care facility), [facility]. 06:49 Method Of Arrival: EMS: [facility] dc2 06:49 Acuity: STEFAN 3 dc2 06:53 Chief complaint:. dc2 Triage Assessment: 06:55 General: Appears uncomfortable, slender, Behavior is. dc2 Historical: - Allergies: 06:55 No Known Allergies; dc2 - PMHx: 06:55 Glaucoma; Alzheimer's disease; Transient cerebral ischemia; Parkinson's disease; dc2 Hypertensive disorder; Malignant neoplasm of brain; Hypercholesterolemia; - Immunization history:: Adult Immunizations up to date, Client reports receiving the 2nd dose of the Covid vaccine, Last tetanus immunization: unknown, Flu vaccine status is unknown. - Social history:: Smoking status: Patient/guardian denies using alcohol, tobacco products, The patient lives in an assisted living center, No barriers to communication noted, The patient speaks fluent Venezuelan. Screenin:54 Abuse screen: Denies threats or abuse. Denies injuries from another. Nutritional dc2 screening: No deficits noted. Tuberculosis screening: No symptoms or risk factors identified. Never had TB. Fall Risk Fall in past 12 months (25 points). Secondary diagnosis (15 points) No IV (0 pts). Ambulatory Aid- Crutches/Cane/Walker (15 pts). Gait- Weak (10 pts.). Mental Status- Overestimates/Forgets Limitations (15 pts.). Total Taylor Fall Scale indicates High Risk Score (45 or more points). Fall prevention measures have been instituted. Side Rails Up X 2 Frequent Obs/Assessments Occuring. Assessment: 07:00 Pain: Complains of pain in "Everywhere since I turned 59". dc2 07:25 Neuro: Reports Pt. alert to person, place, and situation. Disoriented to time. Pt. jt3 endorses left hip and leg pain. Bleeding controlled. . 07:25 Musculoskeletal: Reports Pt. reports left hip and left leg pain. Pt. able to move all jt3 extremities. 11:28 Reassessment: Pt. reports pain has not decreased after the first 2mg dose of morphine. jt3 Breezy, provider notified. Pt. is alert and oriented x4. Airway patent. . 11:33 Reassessment: RN called michael Boykin nurse at [facility] and notified their jt3 staff that the patient will be transferred to [facility] ER. . 12:24 Reassessment: IAN Austin called patient's daughter Landry Vu to notify that the jt3 patient is being transferred to [facility]. . 12:50 Reassessment: Report given to IAN Darby at [facility]. t3 Vital Signs: 06:49 BP 123 / 59; Pulse 58; Resp 17; Temp 98.0(O); Pulse Ox 94% on R/A; Weight 58.97 kg; dc2 Height 5 ft. 6 in. (167.64 cm); Pain 7/10; 06:53 BP 123 / 59; Pulse 58; Resp 17; Temp 98.0; Pulse Ox 95% ; Pain 5/10; dc2 07:45 BP 122 / 52; Pulse 61; Resp 17; Pulse Ox 93% on R/A; jt3 10:46 BP 111 / 59; Pulse 66; Resp 16; Pulse Ox 92% on R/A; jt3 12:18 BP 119 / 65; Pulse 68; Resp 17; Pulse Ox 94% on R/A; jt3 06:49 Body Mass Index 20.98 (58.97 kg, 167.64 cm) dc2 ED Course: 06:48 Patient arrived in ED. eb 06:52 Breezy Dennis PA is PHCP. [facility] 06:52 Bharathi Carlos MD is Attending Physician. jmm 06:53 Triage completed. dc2 06:55 Nurse Practitioner and/or Physician Adjunct Instructor to see patient. dc2 06:55 Patient has correct armband on for positive identification. Placed in gown. Bed in low dc2 position. Call light in reach. Side rails up X 1. 06:55 cardiac monitor on. Pulse ox on. NIBP on. Door closed. Lights dimmed. dc2 07:00 Report given to IAN Austin. dc2 07:00 Inserted saline lock: 20 gauge in right antecubital area, using aseptic technique. dc2 Blood collected. 07:[address] via stretcher. dc2 07:04 CT Head C Spine Sent. dc2 07:11 CT Head C Spine In Process Unspecified. EDMS 07:24 Norman Villarreal RN is Primary Nurse. jt3 07:25 No provider procedures requiring assistance completed. jt3 09:54 Pelvis XRAY In Process Unspecified. EDMS 09:54 Hip Right 2 View XRAY In Process Unspecified. EDMS 09:54 Hip Left 2 View XRAY In Process Unspecified. EDMS 10:34 initiated a transfer with Samara Senior from the [facility]. eb 10:36 Kidd cath inserted, using sterile technique, [address], balloon inflated, Patient gd tolerated well. 11:12 administrative approval given by Samara Lorenzo Rn/ patient has been accepted to [facility] ER/ Dr. Jeronimo Melgoza has accepted the patient without conference with Breezy Kowalski/ report to be called to [phone]. Administered Medications: 08:38 Drug: HYDROcodone-acetaminophen 5 mg-325 mg 1 tabs Route: PO; jt3 09:14 Follow up: Response: No adverse reaction; Pain is decreased jt3 10:17 Follow up: Response: No adverse reaction; Pain is decreased jt3 10:57 Drug: Zofran (Ondansetron) 2 mg Route: IVP; Site: right antecubital; jt3 10:57 Drug: morphine 2 mg Route: IVP; Site: right antecubital; jt3 11:28 Drug: morphine 2 mg Route: IVP; Site: right antecubital; jt3 Point of Care Testing: Blood Glucose: 06:53 Blood Glucose: 106 mg/dL; dc2 Ranges: Outcome: 11:29 ER care complete, transfer ordered by MD. weaver 12:49 Transferred to [facility], Transfer form completed. jt3 12:49 Condition: stable 12:49 Instructed on the need for transfer. 13:03 Patient left the ED. jt3 Signatures: Dispatcher [employer] EDMS Breezy Dennis PA PA jmm Botello, Elizabeth eb Charters, Denise, RN RN dc2 Jack Rouse Jordan, RN RN jt3 Corrections: (The following items were deleted from the chart) 06:59 06:55 PMHx: Hypothyroidism; dc2 dc2
--- NOTE | 2020-12-10 11:29 | EDPHYS ---
Physician Documentation [facility] Name: Dai Trujillo Age: 65 yrs Sex: Female : 1955 Arrival Date: 12/10/2020 Time: 06:48 Bed 15 Private MD: ED Physician Bharathi Carlos HPI: 12/10 11:03 This 65 yrs old Female presents to ER via EMS with complaints of Fall. jmm 11:03 Details of fall: The patient fell from an upright position. Onset: The symptoms/episode jmm began/occurred acutely, this morning. Associated injuries: The patient sustained injury to the head. This is a 65-year-old female with history of Alzheimer's, Parkinson's TIAs that presents emerge department with complaints of pain to her head and left leg following a fall which most likely occurred earlier this morning. Patient states this occurred while she was attempting to go to the restroom. Historical: - Allergies: 06:55 No Known Allergies; dc2 - PMHx: 06:55 Glaucoma; Alzheimer's disease; Transient cerebral ischemia; Parkinson's disease; dc2 Hypertensive disorder; Malignant neoplasm of brain; Hypercholesterolemia; - Immunization history:: Adult Immunizations up to date, Client reports receiving the 2nd dose of the Covid vaccine, Last tetanus immunization: unknown, Flu vaccine status is unknown. - Social history:: Smoking status: Patient/guardian denies using alcohol, tobacco products, The patient lives in an assisted living center, No barriers to communication noted, The patient speaks fluent Omani. ROS: 11:03 Constitutional: Negative for fever, chills, and weight loss, Cardiovascular: Negative jmm for chest pain, palpitations, and edema, Respiratory: Negative for shortness of breath, cough, wheezing, and pleuritic chest pain. 11:03 MS/extremity: Positive for injury or acute deformity, pain. 11:03 Neuro: Positive for headache. 11:03 All other systems are negative. Exam: 11:03 Constitutional: This is a well developed, well nourished patient who is awake, alert, jmm and in no acute distress. 11:03 Eyes: EOMI, no conjunctival erythema appreciated ENT: Moist Mucus Membranes Neck: Trachea midline, Supple Chest/axilla: Normal chest wall appearance and motion. Cardiovascular: Regular rate and rhythm. No edema appreciated Respiratory: Normal respirations, no respiratory distress appreciated Abdomen/GI: Non distended, soft Back: Normal ROM Skin: General appearance color normal 11:03 Head/face: Abrasion noted to the left side of the forehead. 11:03 Musculoskeletal/extremity: Painful range of motion noted to the left leg, compartments are soft, neurovascular intact. 11:03 Skin: Appearance: Color: normal in color. 11:03 Neuro: Orientation: is normal, Mentation: is normal, Memory: is normal. 11:03 Psych: Behavior/mood is pleasant, cooperative. Vital Signs: 06:49 BP 123 / 59; Pulse 58; Resp 17; Temp 98.0(O); Pulse Ox 94% on R/A; Weight 58.97 kg; dc2 Height 5 ft. 6 in. (167.64 cm); Pain 7/10; 06:53 BP 123 / 59; Pulse 58; Resp 17; Temp 98.0; Pulse Ox 95% ; Pain 5/10; dc2 07:45 BP 122 / 52; Pulse 61; Resp 17; Pulse Ox 93% on R/A; jt3 10:46 BP 111 / 59; Pulse 66; Resp 16; Pulse Ox 92% on R/A; jt3 12:18 BP 119 / 65; Pulse 68; Resp 17; Pulse Ox 94% on R/A; jt3 06:49 Body Mass Index 20.98 (58.97 kg, 167.64 cm) dc2 MDM: 06:53 Patient medically screened. [facility] 11:27 Data reviewed: vital signs, nurses notes. Counseling: I had a detailed discussion with [facility] the patient and/or guardian regarding: the historical points, exam findings, and any diagnostic results supporting the discharge/admit diagnosis, radiology results, the need to transfer to another facility. 12/10 06:55 Order name: CT Head C Spine; Complete Time: 08:21 [facility] 12/10 08:23 Order name: Pelvis XRAY; Complete Time: 10:26 [facility] 12/10 08:23 Order name: Hip Right 2 View XRAY; Complete Time: 10:26 [facility] 12/10 08:31 Order name: Hip Left 2 View XRAY; Complete Time: 10:26 [facility] 12/10 10:09 Order name: Saline Lock; Complete Time: 11:06 [facility] Administered Medications: 08:38 Drug: HYDROcodone-acetaminophen 5 mg-325 mg 1 tabs Route: PO; jt3 09:14 Follow up: Response: No adverse reaction; Pain is decreased jt3 10:17 Follow up: Response: No adverse reaction; Pain is decreased jt3 10:57 Drug: Zofran (Ondansetron) 2 mg Route: IVP; Site: right antecubital; jt3 10:57 Drug: morphine 2 mg Route: IVP; Site: right antecubital; jt3 11:28 Drug: morphine 2 mg Route: IVP; Site: right antecubital; jt3 Point of Care Testing: Blood Glucose: 06:53 Blood Glucose: 106 mg/dL; dc2 Ranges: Critical Glucose Levels:Adult <50 mg/dl or >400 mg/dl <40 mg/dl or >180 mg/dl Disposition: 12/11 04:43 Co-signature as Attending Physician, Bharathi Carlos MD. [email or web address] Disposition Summary: 12/10/20 11:29 Transfer Ordered Transfer Location: [facility] Reason: Higher level of care jm Condition: Stable jm Problem: new jmm Symptoms: are unchanged jmm Accepting Physician: Dr. Morgan(12/10/20 13:03) jt3 Diagnosis - Subcapital Fracture jmm - Unspecified injury of head, initial encounter [facility] Forms: - Medication Reconciliation Form jmm - SBAR form jm Signatures: Dispatcher [employer] EDMS Breezy Dennis PA PA jmm Holmes, Maurice, MD MD [email or web address] Kendall, Maris RN RN dc2 Norman Villarreal RN RN jt3 Corrections: (The following items were deleted from the chart) 12/10 06:59 06:55 PMHx: Hypothyroidism; dc2 dc2 07:51 07:44 Head Brain Wo Cont+CT.RAD.BRZ ordered. EDMS EDMS 13:03 11:29 Dr. Cathy kelly jt3
[2020-12-10 13:11] VITALS: TEMP 98
[2020-12-10 13:16] VITALS: BP 119/65; O2SAT 94
== END 2020-12-10 13:03 | disposition short-term general hospital (02) ==
LOC: ER 06:35
DX: S72.012A Unspecified intracapsular fracture of left femur, initial encounter for closed fracture (principal); S00.81XA Abrasion of other part of head, initial encounter; W19.XXXA Unspecified fall, initial encounter; Y92.099 Unspecified place in other non-institutional residence as the place of occurrence of the external cause; F02.80 Dementia in other diseases classified elsewhere, unspecified severity, without behavioral disturbance, psychotic disturbance, mood disturbance, and anxiety; G30.9 Alzheimer's disease, unspecified; G20 Parkinson's disease; I10 Essential (primary) hypertension
CPT/HCPCS: 93005; 70450; 72125; 72170; 73502 ×2; 51702; 96375; 96374; 99285; J2270 ×2; J2405